=== PATIENT | male | born 1975 | race Caucasian/White ===

== ENCOUNTER 2019-12-25 12:43 | Outpatient (REF) | payer OTHER, SELFPAY ==
[2019-12-25 15:03] LABS: Hematocrit 40.9 % (42-52); Hemoglobin 13.6 g/dl (14.0-18.0); Mean Corpuscular HGB Conc 33.3 g/dl (31.0-36.0); Mean Corpuscular Hemoglobin 29.2 pg (27.0-33.0); Mean Platelet Volume 10.6 fL (9.4-12.4); Platelet Count 230 X10*3/uL (160-400); Red Blood Count 4.65 X10*6/uL (4.60-5.80); Red Cell Distribution Width 11.9 % (11.0-16.0); White Blood Count 6.6 X10*3/uL (4.8-10.8)
[2019-12-25 15:33] LABS: Alanine Aminotransferase 29 U/L (0-40); Alkaline Phosphatase 78 U/L (39-117); Anion Gap 10 (12-20); Aspartate Amino Transferase 22 U/L (5-37); Bilirubin Total 0.5 mg/dL (0.0-1.0); Blood Urea Nitrogen 9 mg/dL (9-16); Calcium 9.4 mg/dL (8.4-10.2); Carbon Dioxide 33 mmol/L (22-29); Chloride 102 mmol/L (96-108); Cholesterol 242 mg/dL; Estimated Glomerular Filt Rate > 60; Glucose Fasting 86 mg/dL (60-99); HDL Cholesterol 59 mg/dL; LDL Cholesterol Calculated 161 mg/dl; Potassium 3.9 mmol/l (3.3-5.1); Sodium 141 mmol/L (135-145); Total Protein 8.1 g/dL (6.5-8.0); Triglycerides 114 mg/dL
[2019-12-25 15:46] LABS: Creatinine Urine 79.72 mg/dL
[2019-12-25 15:55] LABS: Vitamin D 25-OH Total 19.4 ng/mL (>30)
[2019-12-25 17:08] LABS: Vitamin B12 171 pg/mL (200-900)
[2019-12-26 22:21] LABS: LDL Cholesterol Direct 163 mg/dL (<100)
== END 2019-12-25 12:44 | disposition home or self-care (01) ==
LOC: CF 12:43
PROVIDERS: PCP Internal Medicine; Referring Provider Internal Medicine; Visit Provider Internal Medicine Endocrinology, Diabetes & Metabolism
DX: E11.40 Type 2 diabetes mellitus with diabetic neuropathy, unspecified (principal); E66.3 Overweight; E55.9 Vitamin D deficiency, unspecified; I10 Essential (primary) hypertension; E78.5 Hyperlipidemia, unspecified; Z79.84 Long term (current) use of oral hypoglycemic drugs; Z79.899 Other long term (current) drug therapy
CPT/HCPCS: 36415; 80053; 80061; 82043; 82306; 82607; 83721; 85027; 99214

== ENCOUNTER → 2020-03-31 14:55 | Outpatient (BNVA) | payer OTHER, SELFPAY | PROVIDERS: Visit Provider Hospitalist | DX: Z76.89 Persons encountering health services in other specified circumstances (principal) ==

== ENCOUNTER → 2020-04-29 11:26 | Outpatient (BNVA) | payer OTHER, SELFPAY | PROVIDERS: Visit Provider Internal Medicine Endocrinology, Diabetes & Metabolism ==

== ENCOUNTER 2020-05-31 09:16 | Outpatient (REF) | payer OTHER, SELFPAY ==
[2020-05-31 10:24] LABS: Alanine Aminotransferase 37 U/L (0-40); Albumin Level 4.9 g/dL (3.5-5.0); Alkaline Phosphatase 68 U/L (39-117); Anion Gap 13 (12-20); Aspartate Amino Transferase 22 U/L (5-37); Bilirubin Total 0.5 mg/dL (0.0-1.0); Blood Urea Nitrogen 12 mg/dL (9-16); Calcium 9.7 mg/dL (8.4-10.2); Carbon Dioxide 31 mmol/L (22-29); Chloride 104 mmol/L (96-108); Cholesterol 205 mg/dL; Estimated Glomerular Filt Rate > 60; Glucose Fasting 75 mg/dL (60-99); HDL Cholesterol 50 mg/dL; LDL Cholesterol Calculated 117 mg/dl; Sodium 144 mmol/L (135-145); Triglycerides 194 mg/dL
[2020-05-31 10:28] LABS: Estimated Average Glucose 108 mg/dL; Hemoglobin A1c % 5.4 %
[2020-05-31 10:47] LABS: Free T4 (Free Thyroxine) 0.83 ng/dL (0.71-1.85); Vitamin D 25-OH Total 29.7 ng/mL (>30)
[2020-05-31 10:52] LABS: Vitamin B12 244 pg/mL (200-900)
[2020-06-01 12:56] LABS: LDL Cholesterol Direct 124 mg/dL (<100)
== END 2020-05-31 09:17 | disposition home or self-care (01) ==
LOC: HO.LAB 09:16
PROVIDERS: Visit Provider Internal Medicine Endocrinology, Diabetes & Metabolism
DX: E11.9 Type 2 diabetes mellitus without complications (principal); E78.5 Hyperlipidemia, unspecified
CPT/HCPCS: 36415; 80053; 80061; 82306; 82607; 83036; 83721; 84439; 84443

== ENCOUNTER → 2020-08-08 10:08 | Outpatient (BNVA) | payer OTHER, SELFPAY | PROVIDERS: PCP Internal Medicine; Visit Provider Hospitalist ==

== ENCOUNTER → 2020-08-29 12:53 | Outpatient (BNVA) | payer OTHER, SELFPAY | PROVIDERS: PCP Internal Medicine; Visit Provider Internal Medicine Endocrinology, Diabetes & Metabolism | DX: E11.40 Type 2 diabetes mellitus with diabetic neuropathy, unspecified (principal); E66.3 Overweight; E55.9 Vitamin D deficiency, unspecified; I10 Essential (primary) hypertension; E78.5 Hyperlipidemia, unspecified; E53.8 Deficiency of other specified B group vitamins | CPT/HCPCS: 82947; 99212 ==

== ENCOUNTER → 2021-02-09 12:50 | Outpatient (BNVA) | payer OTHER, SELFPAY | PROVIDERS: PCP Nurse Practitioner Family; Visit Provider Hospitalist | DX: J45.40 Moderate persistent asthma, uncomplicated (principal); J98.4 Other disorders of lung; J98.6 Disorders of diaphragm; R06.00 Dyspnea, unspecified; G47.33 Obstructive sleep apnea (adult) (pediatric); E11.42 Type 2 diabetes mellitus with diabetic polyneuropathy; I10 Essential (primary) hypertension; E78.5 Hyperlipidemia, unspecified; E53.8 Deficiency of other specified B group vitamins; E55.9 Vitamin D deficiency, unspecified; M54.9 Dorsalgia, unspecified; R29.898 Other symptoms and signs involving the musculoskeletal system; Z83.3 Family history of diabetes mellitus; Z82.49 Family history of ischemic heart disease and other diseases of the circulatory system; Z99.89 Dependence on other enabling machines and devices | CPT/HCPCS: 99212 ==

== ENCOUNTER 2021-05-25 13:25 | Outpatient (REF) | payer OTHER, SELFPAY ==
--- NOTE | ~2021-05-25 | XR_ITS ---
EXAMINATION: XR HIP, RIGHT CLINICAL INFORMATION: Right leg weakness COMPARISON: None TECHNIQUE: Two views of the right hip. FINDINGS: Bone alignment is normal. No fracture or dislocation is seen. There is mild arthritis at the right hip joint with joint space narrowing and osteophyte formation. Soft tissues are unremarkable. XR/XR hip RT min 2V IMPRESSION: Mild right hip arthritis.
[2021-05-25 14:56] LABS: Rheumatoid Factor < 15.0 IU/mL (<15.0)
[2021-05-25 15:16] LABS: Erythrocyte Sedimentation Rate 12 MM/HR (0-15)
[2021-05-26 08:36] LABS: Lyme Abs Screen <0.90 index
[2021-05-26 22:47] LABS: Anti Nuclear Antibody Screen POSITIVE (NEGATIVE)
== END 2021-05-25 13:26 | disposition home or self-care (01) ==
LOC: HO.XRAY 13:25
PROVIDERS: PCP Nurse Practitioner Family; Visit Provider Psychiatry & Neurology Neurology
DX: M62.81 Muscle weakness (generalized) (principal)
CPT/HCPCS: 36415; 73502; 82550; 85652; 86038; 86039; 86431; 86617; 86618

== ENCOUNTER 2021-05-26 09:41 | Outpatient (REF) | payer OTHER, SELFPAY ==
--- NOTE | ~2021-05-26 | XR_ITS ---
EXAMINATION: XR CHEST CLINICAL INFORMATION: Post Covid condition COMPARISON: None TECHNIQUE: 2 views of the chest were obtained. FINDINGS: The cardiac silhouette does not appear enlarged. Hilar and mediastinal contours are unremarkable. There is marked elevation of the left hemidiaphragm. The lungs are clear. There is no pleural effusion or pneumothorax. There is an old sternal fracture and postsurgical fixation with cerclage wires which appear broken. XR/XR chest 2V IMPRESSION: Significant elevation of the left hemidiaphragm. No evidence of pneumonia. Old sternal fracture.
[2021-05-26 11:02] LABS: MANUAL DIFF FLAG NO
[2021-05-26 11:09] LABS: Basophils Percent Auto 0.7 % (0-2); Eosinophils Absolute Auto 0.2 X10*3/uL (0.0-0.4); Eosinophils Percent Auto 3.8 % (0-4); Hematocrit 45.7 % (42.0-52.0); Hemoglobin 14.2 g/dl (14.0-18.0); Imm Gran Abs Auto 0.01 X10*3/uL (0.00-0.03); Imm Gran Pct Auto 0.2 % (0.0-0.4); Lymphocytes Percent Auto 35.2 % (20-40); Mean Corpuscular HGB Conc 31.1 g/dl (31.0-36.0); Mean Corpuscular Hemoglobin 28.2 pg (27.0-33.0); Mean Corpuscular Volume 90.7 fL (80.0-98.0); Mean Platelet Volume 10.7 fL (9.4-12.4); Monocytes Absolute Auto 0.4 X10*3/uL (0.1-1.2); Monocytes Percent Auto 6.3 % (2-11); Neutrophils Absolute Auto 3.1 x10*3/uL (2.0-8.3); Neutrophils Percent Auto 53.8 % (45-73); Platelet Count 175 X10*3/uL (160-400); Red Blood Count 5.04 X10*6/uL (4.60-5.80); White Blood Count 5.8 X10*3/uL (4.8-10.8)
[2021-05-26 11:43] LABS: Appearance Urine CLEAR; Color Urine YELLOW; Glucose Urine UA NEG (NEG); Leukocyte Esterase Urine NEG (NEG); Nitrite Urine NEG (NEG); Specific Gravity - Urine 1.025 (1.005-1.025); Urine Blood NEG (NEG); Urine Ketones NEG (NEG); Urine Protein NEG (NEG-TRACE)
[2021-05-26 11:45] LABS: Alanine Aminotransferase 39 U/L (0-40); Alkaline Phosphatase 72 U/L (39-117); Anion Gap 12 (12-20); Aspartate Amino Transferase 27 U/L (5-37); Bilirubin Direct 0.2 mg/dL (0.0-0.5); Bilirubin Total 0.8 mg/dL (0.0-1.0); Blood Urea Nitrogen 10 mg/dL (9-16); Carbon Dioxide 31 mmol/L (22-29); Chloride 102 mmol/L (96-108); Estimated Glomerular Filt Rate > 60; Glucose Random 95 mg/dL (60-115); Potassium 4.3 mmol/L (3.3-5.1); Sodium 141 mmol/L (135-145); Total Protein 8.2 g/dL (6.5-8.0)
[2021-05-26 11:57] LABS: Erythrocyte Sedimentation Rate 14 MM/HR (0-15)
[2021-05-27 05:21] LABS: SARS-COV-2 IgG Spike, Semi-Qnt >150.00 index (<1.00)
[2021-05-27 08:12] LABS: LDL Cholesterol Direct 152 mg/dL (<100)
== END 2021-05-26 09:42 | disposition home or self-care (01) ==
LOC: HO.XRAY 09:41
PROVIDERS: Internal Medicine Endocrinology, Diabetes & Metabolism; PCP Nurse Practitioner Family; Visit Provider Hospitalist
DX: J45.40 Moderate persistent asthma, uncomplicated (principal); Z20.822 Contact with and (suspected) exposure to COVID-19; G47.33 Obstructive sleep apnea (adult) (pediatric); R06.00 Dyspnea, unspecified; J98.4 Other disorders of lung; M54.9 Dorsalgia, unspecified; R59.1 Generalized enlarged lymph nodes; R29.898 Other symptoms and signs involving the musculoskeletal system; E78.5 Hyperlipidemia, unspecified; Z99.89 Dependence on other enabling machines and devices
CPT/HCPCS: 36415; 71046; 80048; 80076; 81003; 83721; 85025; 85652; 86769; 99212

== ENCOUNTER 2021-06-21 10:13 | Outpatient (REF) | payer OTHER, SELFPAY ==
[2021-06-22 14:26] LABS: Anti DNA DS Antibody 19 IU/mL
== END 2021-06-21 10:14 | disposition home or self-care (01) ==
LOC: HO.LAB 10:13
PROVIDERS: Visit Provider Psychiatry & Neurology Neurology
DX: R76.8 Other specified abnormal immunological findings in serum (principal)
CPT/HCPCS: 36415; 86225

== ENCOUNTER 2021-06-30 07:49 | Outpatient (REF) | payer OTHER, SELFPAY ==
[2021-06-30 10:23] LABS: Creatinine Urine 112.67 mg/dL; Microalbum/Creatinine Ratio Ur 7.1 ug/mg cr
[2021-06-30 10:25] LABS: Alanine Aminotransferase 46 U/L (0-40); Albumin Level 5.3 g/dL (3.5-5.0); Alkaline Phosphatase 81 U/L (39-117); Anion Gap 14 (12-20); Aspartate Amino Transferase 31 U/L (5-37); Bilirubin Total 0.6 mg/dL (0.0-1.0); Blood Urea Nitrogen 11 mg/dL (9-16); Carbon Dioxide 28 mmol/L (22-29); Chloride 104 mmol/L (96-108); Cholesterol 257 mg/dL; Estimated Glomerular Filt Rate > 60; Glucose Fasting 85 mg/dL (60-99); HDL Cholesterol 53 mg/dL; LDL Cholesterol Calculated 166 mg/dl; Sodium 142 mmol/L (135-145); Total Protein 8.9 g/dL (6.5-8.0); Triglycerides 192 mg/dL
[2021-06-30 10:50] LABS: Vitamin D 25-OH Total 11.4 ng/mL (>30)
[2021-06-30 11:09] LABS: Vitamin B12 214 pg/mL (200-900)
[2021-07-02 22:22] LABS: LDL Cholesterol Direct 155 mg/dL (<100)
== END 2021-06-30 07:50 | disposition home or self-care (01) ==
LOC: HO.LAB 07:49
PROVIDERS: PCP Nurse Practitioner Family; Visit Provider Nurse Practitioner Gerontology
DX: E11.40 Type 2 diabetes mellitus with diabetic neuropathy, unspecified (principal); E53.8 Deficiency of other specified B group vitamins; E78.5 Hyperlipidemia, unspecified; E55.9 Vitamin D deficiency, unspecified; E66.3 Overweight; I10 Essential (primary) hypertension
CPT/HCPCS: 36415; 80053; 80061; 82043; 82306; 82607; 82947; 83036; 83721; 99212

== ENCOUNTER → 2021-08-07 13:58 | Outpatient (BNVA) | payer OTHER, SELFPAY | PROVIDERS: PCP Nurse Practitioner Family; Visit Provider Internal Medicine | DX: M54.9 Dorsalgia, unspecified (principal) | CPT/HCPCS: 99202 ==

== ENCOUNTER 2021-09-28 11:13 | Outpatient (REF) | payer OTHER, SELFPAY ==
[2021-09-28 12:29] LABS: Cholesterol 203 mg/dL; HDL Cholesterol 45 mg/dL; LDL Cholesterol Calculated 116 mg/dl; Triglycerides 214 mg/dL
[2021-09-30 13:12] LABS: LDL Cholesterol Direct 118 mg/dL (<100)
== END 2021-09-28 11:14 | disposition home or self-care (01) ==
LOC: HO.LAB 11:13
PROVIDERS: Visit Provider Nurse Practitioner Gerontology
DX: J45.40 Moderate persistent asthma, uncomplicated (principal); G47.33 Obstructive sleep apnea (adult) (pediatric); Z99.89 Dependence on other enabling machines and devices; J98.4 Other disorders of lung; R06.00 Dyspnea, unspecified; J98.6 Disorders of diaphragm; M54.9 Dorsalgia, unspecified; R59.1 Generalized enlarged lymph nodes; E11.41 Type 2 diabetes mellitus with diabetic mononeuropathy
CPT/HCPCS: 36415; 80061; 83721; 99212

== ENCOUNTER 2021-12-29 10:18 | Outpatient (REF) | payer OTHER, SELFPAY ==
[2021-12-29 10:34] LABS: MANUAL DIFF FLAG NO
[2021-12-29 11:40] LABS: Basophils Absolute Auto 0.1 X10*3/uL (0.0-0.2); Eosinophils Absolute Auto 0.4 X10*3/uL (0.0-0.4); Eosinophils Percent Auto 7.5 % (0-4); Hematocrit 41.3 % (42.0-52.0); Hemoglobin 13.5 g/dl (14.0-18.0); Imm Gran Abs Auto 0.01 X10*3/uL (0.00-0.03); Imm Gran Pct Auto 0.2 % (0.0-0.4); Lymphocytes Absolute Auto 1.7 X10*3/uL (1.2-4.9); Mean Corpuscular HGB Conc 32.7 g/dl (31.0-36.0); Mean Corpuscular Hemoglobin 27.8 pg (27.0-33.0); Mean Corpuscular Volume 85.2 fL (80.0-98.0); Monocytes Absolute Auto 0.4 X10*3/uL (0.1-1.2); Monocytes Percent Auto 7.9 % (2-11); Neutrophils Absolute Auto 2.7 x10*3/uL (2.0-8.3); Neutrophils Percent Auto 51.4 % (45-73); Platelet Count 256 X10*3/uL (160-400); Red Blood Count 4.85 X10*6/uL (4.60-5.80); Red Cell Distribution Width 12.2 % (11.0-16.0); White Blood Count 5.2 X10*3/uL (4.8-10.8)
[2021-12-29 12:16] LABS: Erythrocyte Sedimentation Rate 13 MM/HR (0-15)
[2021-12-29 12:17] LABS: Anion Gap 16 (12-20); Blood Urea Nitrogen 9 mg/dL (9-16); Carbon Dioxide 28 mmol/L (22-29); Chloride 103 mmol/L (96-108); Estimated Glomerular Filt Rate > 60; Glucose Random 92 mg/dL (60-115); Potassium 3.9 mmol/L (3.3-5.1); Sodium 143 mmol/L (135-145)
== END 2021-12-29 10:19 | disposition home or self-care (01) ==
LOC: HO.LAB 10:18
PROVIDERS: Visit Provider Hospitalist
DX: J45.40 Moderate persistent asthma, uncomplicated (principal); J98.4 Other disorders of lung; R06.00 Dyspnea, unspecified; J98.6 Disorders of diaphragm; G47.33 Obstructive sleep apnea (adult) (pediatric); R59.1 Generalized enlarged lymph nodes; R93.89 Abnormal findings on diagnostic imaging of other specified body structures
CPT/HCPCS: 36415; 80048; 85025; 85652; 99212

== ENCOUNTER → 2022-01-19 10:58 | Outpatient (BNVA) | payer OTHER, SELFPAY | PROVIDERS: PCP Nurse Practitioner Family; Visit Provider Psychiatry & Neurology Neurology | DX: R20.2 Paresthesia of skin (principal); M79.602 Pain in left arm; M79.601 Pain in right arm; M54.2 Cervicalgia; R53.1 Weakness | CPT/HCPCS: 99202 ==

== ENCOUNTER 2022-03-07 13:40 | Outpatient (REF) | payer OTHER, SELFPAY ==
--- NOTE | 2022-03-07 09:45 | EMG_ITS ---
Please see scanned EMG / Nerve Conduction Report. MTDD
== END 2022-03-07 13:41 | disposition home or self-care (01) ==
LOC: HO.NEURO 13:40
PROVIDERS: Visit Provider Psychiatry & Neurology Neurology
DX: M54.2 Cervicalgia (principal); M79.601 Pain in right arm; M79.602 Pain in left arm; R20.2 Paresthesia of skin; R53.1 Weakness
CPT/HCPCS: 95885; 95913

== ENCOUNTER → 2022-04-03 08:40 | Outpatient (BNVA) | payer OTHER, SELFPAY | PROVIDERS: PCP Nurse Practitioner Family; Visit Provider Hospitalist | DX: J45.40 Moderate persistent asthma, uncomplicated (principal); J98.4 Other disorders of lung; J98.6 Disorders of diaphragm; R06.00 Dyspnea, unspecified; G47.33 Obstructive sleep apnea (adult) (pediatric); R59.1 Generalized enlarged lymph nodes; R76.8 Other specified abnormal immunological findings in serum; Z79.899 Other long term (current) drug therapy; Z99.89 Dependence on other enabling machines and devices | CPT/HCPCS: 99212 ==

== ENCOUNTER → 2022-06-28 07:56 | Outpatient (BNVA) | payer OTHER, SELFPAY | PROVIDERS: PCP Nurse Practitioner Family; Visit Provider Psychiatry & Neurology Neurology | DX: G47.33 Obstructive sleep apnea (adult) (pediatric) (principal); G56.03 Carpal tunnel syndrome, bilateral upper limbs | CPT/HCPCS: 99212 ==

== ENCOUNTER 2022-06-29 09:03 | Outpatient (REF) | payer OTHER, SELFPAY ==
[2022-06-29 15:43] LABS: MANUAL DIFF FLAG NO
[2022-06-29 17:28] LABS: Basophils Absolute Auto 0.1 X10*3/uL (0.0-0.2); Basophils Percent Auto 0.7 % (0-2); Eosinophils Absolute Auto 0.1 X10*3/uL (0.0-0.4); Eosinophils Percent Auto 1.7 % (0-4); Hematocrit 40.4 % (42.0-52.0); Hemoglobin 13.2 g/dl (14.0-18.0); Imm Gran Abs Auto 0.02 X10*3/uL (0.00-0.03); Imm Gran Pct Auto 0.3 % (0.0-0.4); Lymphocytes Absolute Auto 2.3 X10*3/uL (1.2-4.9); Lymphocytes Percent Auto 30.5 % (20-40); Mean Corpuscular HGB Conc 32.7 g/dl (31.0-36.0); Mean Corpuscular Hemoglobin 27.8 pg (27.0-33.0); Mean Corpuscular Volume 85.2 fL (80.0-98.0); Mean Platelet Volume 11.3 fL (9.4-12.4); Monocytes Absolute Auto 0.4 X10*3/uL (0.1-1.2); Monocytes Percent Auto 5.3 % (2-11); Neutrophils Absolute Auto 4.6 x10*3/uL (2.0-8.3); Neutrophils Percent Auto 61.5 % (45-73); Platelet Count 233 X10*3/uL (160-400); Red Blood Count 4.74 X10*6/uL (4.60-5.80); White Blood Count 7.5 X10*3/uL (4.8-10.8)
[2022-06-29 17:42] LABS: Appearance Urine Clear; Color Urine Yellow; Glucose Urine UA Negative (Negative); Leukocyte Esterase Urine Negative (Negative); Nitrite Urine Negative (Negative); PH 8.5 (5.0-9.0); Specific Gravity - Urine 1.015 (1.005-1.025); Urine Blood Negative (Negative); Urine Ketones Negative (Negative); Urine Protein Negative (Neg-Trace)
[2022-06-29 17:45] LABS: Bacteria Urine None Seen (None Seen); Hyaline Casts Urine 0-2 /LPF (0-2); RBC Urine 0-2 /HPF (0-2); Squamous Epithelial Cell Urine 0-2 /HPF (0-2); WBC Urine 0-5 /HPF (0-5)
[2022-06-29 18:04] LABS: Alanine Aminotransferase 23 U/L (0-40); Albumin Level 4.9 g/dL (3.5-5.0); Alkaline Phosphatase 82 U/L (39-117); Anion Gap 15 (12-20); Aspartate Amino Transferase 21 U/L (5-37); Bilirubin Total 0.5 mg/dL (0.0-1.0); Blood Urea Nitrogen 8 mg/dL (9-16); C Reactive Protein < 0.10 mg/dL (< or = 0.50); Calcium 9.3 mg/dL (8.4-10.2); Carbon Dioxide 27 mmol/L (22-29); Chloride 104 mmol/L (96-108); Estimated Glomerular Filt Rate > 60; Glucose Random 84 mg/dL (60-115); Sodium 142 mmol/L (135-145); Total Protein 7.7 g/dL (6.5-8.0)
[2022-06-29 18:06] LABS: Creatinine Urine 98.43 mg/dL; Total Protein Urine Random < 7 mg/dL (<12)
[2022-06-29 18:29] LABS: Erythrocyte Sedimentation Rate 16 MM/HR (0-15)
[2022-07-02 14:59] LABS: IgA 405 mg/dL (47-310); IgG 1247 mg/dL (600-1640); IgM 73 mg/dL (50-300)
[2022-07-02 19:43] LABS: Complement C3 143 mg/dL (82-185)
[2022-07-03 13:43] LABS: Anti DNA DS Antibody 21 IU/mL; Antibody to SS-A Antigen <1.0 NEG AI (<1.0 NEG); Antibody to SS-B Antigen <1.0 NEG AI (<1.0 NEG); SM/Ribonucleoprotein Ab <1.0 NEG AI (<1.0 NEG); Smith Protein <1.0 NEG AI (<1.0 NEG)
[2022-07-04 03:54] LABS: Angiotensin Converting Enzyme 30 U/L (9-67)
[2022-07-05 08:59] LABS: Prot Elec - Albumin 5.4 g/dL (3.8-4.8); Prot Elec - Alpha1 0.3 g/dL (0.2-0.3); Prot Elec - Alpha2 0.9 g/dL (0.5-0.9); Prot Elec - Beta 1 0.5 g/dL (0.4-0.6); Prot Elec - Beta 2 0.6 g/dL (0.2-0.5); Prot Elec - Gamma 1.3 g/dL (0.8-1.7); Prot Elec - Total Protein 8.9 g/dL (6.1-8.1)
[2022-07-10 12:48] LABS: DNAds, Crithidia Antibody Negative (Negative)
== END 2022-06-29 09:04 | disposition home or self-care (01) ==
LOC: HO.LAB 09:03
PROVIDERS: Absent Provider Student in an Organized Health Care Education/Training Program; Visit Provider Hospitalist
DX: M32.9 Systemic lupus erythematosus, unspecified (principal); D86.9 Sarcoidosis, unspecified; R76.8 Other specified abnormal immunological findings in serum; J45.40 Moderate persistent asthma, uncomplicated; J98.6 Disorders of diaphragm; R59.1 Generalized enlarged lymph nodes; R06.00 Dyspnea, unspecified; J98.4 Other disorders of lung; G47.33 Obstructive sleep apnea (adult) (pediatric); Z99.89 Dependence on other enabling machines and devices; Z79.899 Other long term (current) drug therapy
CPT/HCPCS: 36415; 80053; 81001; 82164; 82784; 84156; 84165; 85025; 85549; 85652; 86140; 86160; 86225; 86235; 86255; 86334; 99202

== ENCOUNTER → 2022-07-24 09:45 | Outpatient (BNV) | payer OTHER, SELFPAY | PROVIDERS: Visit Provider Internal Medicine Medical Oncology | DX: R59.0 Localized enlarged lymph nodes (principal); Z85.49 Personal history of malignant neoplasm of other male genital organs | CPT/HCPCS: 99204; 99213 ==

== ENCOUNTER → 2022-07-25 08:33 | Outpatient (BNVA) | payer OTHER, SELFPAY | PROVIDERS: Visit Provider Orthopaedic Surgery | DX: G56.03 Carpal tunnel syndrome, bilateral upper limbs (principal) | CPT/HCPCS: 99202 ==

== ENCOUNTER 2022-08-16 09:27 | Day surgery (SDC) | payer OTHER, SELFPAY ==
[2022-08-16 10:01] VITALS: BMI 28.3
--- NOTE | 2022-08-16 12:08 | MHC.SHP ---
Pre-Procedural Eval Section A Date of Service: 08/16/22 The patient is an INPATIENT: No Changes since office visit: No Cold of Flu in the past 2 weeks, No New Medical Problems, No Changes in Medication and No Patient answered all questions The History & Physical has been completed within 30 days and I have reviewed it.: Yes Section B Chief Complaint: Carpal tunnel syndrome, right upper limb Allergies: Allergies Allergy/AdvReac Type Severity Reaction Status Date / Time No Known Allergies Allergy Verified 07/25/22 09:21 Plan I have reviewed the history and physical and performed a pertinent physical examination on my patient. No changes have occurred unless specified. Time Spent With Patient Time: Total time managing care of this patient today ____ minutes.
--- NOTE | 2022-08-16 12:08 | W.PM.OPN ---
Operative Note Operative Note Date of Service: 08/16/22 Narrative: Preop diagnosis: 1. Right Carpal tunnel syndrome Postop diagnosis: same Procedure: 1. Right Carpal tunnel release Surgeon: Marie Moore MD Anesthesia: local block using 1% lidocaine with epinephrine Findings: Thickened transverse carpal ligament. EBL: Less than 5 mL Specimens: None Complications: None Disposition: Brought to recovery room in stable condition Plan: Follow-up for 10-14 days for wound check and suture removal Indications: The patient is 47 years old, with right carpal tunnel syndrome that has been unresponsive to nonoperative management. The risks and benefits of operative treatment including but not limited to risk of damage to blood vessels, nerves, tendons, infection, persistent pain, persistent symptoms, or possible need for additional surgery were discussed with the patient and the patient wishes to proceed with surgery. Procedure: Once consent was obtained a local block was performed using a combination of 1% lidocaine with epinephrine. The patient was then brought back to the operating suite and placed on the operative table in supine position. The right upper extremity was prepped and draped in a standard surgical fashion. Once assured that we had a good block, a 2.0 cm longitudinal incision was made centered over the carpal tunnel. The incision was made through the skin to the subcutaneous tissues using a #15 blade. Dissection was made down to the level of the transverse carpal ligament with care being taken to protect the palmar cutaneous nerve. Once the transverse carpal ligament was clearly visualized, a longitudinal incision was made in the transverse carpal ligament 1st using a #15 blade, then using tenotomy scissors under direct visualization. Care was taken to look for and protect the motor branch of the median nerve when seen in this area. Once satisfied with our carpal tunnel release the wound was copiously irrigated with normal saline and hemostasis was obtained with a brief period of local pressure. The skin edges were reapproximated with some 5.0 nylon suture material and a sterile dressing was applied. The patient appears to have tolerated the procedure well and with no complications. All digits were well vascularized at the conclusion of the case.
[2022-08-16 12:42] VITALS: BP 114/70; PULSE 77; RESP 18; O2SAT 98
== END 2022-08-16 12:43 | disposition home or self-care (01) ==
PROVIDERS: Visit Provider Orthopaedic Surgery
PROC: (CPT 64721; principal; 2022-08-16 11:30)
DX: G56.01 Carpal tunnel syndrome, right upper limb (principal); R20.0 Anesthesia of skin; R20.2 Paresthesia of skin; I10 Essential (primary) hypertension; E78.5 Hyperlipidemia, unspecified; E11.21 Type 2 diabetes mellitus with diabetic nephropathy; M32.9 Systemic lupus erythematosus, unspecified; U09.9 Post COVID-19 condition, unspecified; J84.9 Interstitial pulmonary disease, unspecified; J45.909 Unspecified asthma, uncomplicated; G47.33 Obstructive sleep apnea (adult) (pediatric); Z99.89 Dependence on other enabling machines and devices; Z98.890 Other specified postprocedural states; F12.90 Cannabis use, unspecified, uncomplicated
CPT/HCPCS: 64721; J0171

== ENCOUNTER → 2022-08-29 11:33 | Outpatient (BNVA) | payer OTHER, SELFPAY | PROVIDERS: Visit Provider Orthopaedic Surgery | DX: G56.01 Carpal tunnel syndrome, right upper limb (principal); M79.631 Pain in right forearm | CPT/HCPCS: 99212 ==

== ENCOUNTER 2022-10-10 11:59 | Outpatient (AMB) | payer OTHER, SELFPAY ==
--- NOTE | 2022-10-10 12:09 | MHC.OFFVIS ---
Intake Vital Signs 10/10/22 12:11 Height 5 ft 3 in Weight 160 lb BMI 28.3 Intake Visit Reasons: Postop-R CTR 08/16/22 AR-ROM check Intake Note: Steve 47 yr old man presents today for his P/O Right CTR 08/16/22 for his ROM check. States he has improved in making a fist. States he has pain radiating to his elbow. Allergies No Known Allergies Allergy (Verified 10/10/22 12:14) HPI Postop-R CTR 08/16/22 AR-ROM check HPI Details Steve is a 47 year old right hand dominant Lebanese speaking man who presents S/P right carpal tunnel release, DOS: 08/16/22. He says his sensation in his right hand has completely improved and he has good resolution of his nighttime symptoms. he has been working on ROM exercises at home and with OT, and he can now make a fist more easily. He continues to have difficulty using his hand for daily activities and complains that he still has pain in the base of his palm, particularly if he tries to push up from a chair.. He also continues to complain of pain in his right forearm, elbow, and shoulder, which we discussed at his last appointment. He has a family history of RA. ? 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 Sister Fibromyalgia, primary Maternal Aunt Lung cancer Social History Household Members: Family and Other Household Members Other:: Patient does not have a stable place to live Alcohol intake: current Alcohol intake frequency: holidays/special occasions only Patient Tobacco Use Status: Never used Tobacco Substance Use Type: Marijuana service: No Current occupational status: unemployed and disabled Current occupation: left hand Gender identity: Male Review of Systems Const All systems reviewed & are unremarkable except as noted in HPI and below Physical Exam Vital Signs: BMI result Body Mass Index 28.3 Const General: no acute distress and alert Orientation/consciousness: patient oriented x3 Neuro General: patient oriented x3 Extrem Other: The patient was alert oriented and in no acute distress The incision is well-healed With encouragement he could make a fist and bring his fingers back into extension He has pain in his dorsal and volar forearm, and elbow that extends up into his shoulder and neck Sensation is intact to the tips of all digits Cap refill is brisk Nerve Conduction study: Mild bilateral carpal tunnel syndrome, slightly worse on the left Dr. Hull 03/07/22 Psych Appearance: grossly normal Affect: normal affect Attitude: cooperative Assessment & Plan Assessment & Plan (1) Carpal tunnel syndrome of right wrist: Code(s): G56.01 - Carpal tunnel syndrome, right upper limb (2) Carpal tunnel syndrome of left wrist: Code(s): G56.02 - Carpal tunnel syndrome, left upper limb Plan Assessment & Plan: 1. Right Carpal tunnel syndrome, S/P release DOS: 08/15/22 Pre-operative symptoms intermittent, but daily, worse at night Now with normal sensation The patient appears to be doing well post-operatively I educated him about the post-operative course He continues to have apprehension about using his hand for daily activities I encouraged him to normalize his activity with his right hand, and to begin using his hand for daily medium-heavy weight activities He will continue to perform his ROM exercises at home and with OT 2. Left Carpal tunnel syndrome, mild Symptoms intermittent, but daily, worse at night We can discuss treatment for his left side when he has recovered from surgery and he can use his right hand for normal activities 3. Right forearm pain Just distal to the lateral epicondyle at last visit. Today he complains about pain in the volar forearm, dorsal forearm, his elbow and radiating up to his neck I told him we would address this at a later date, following surgery Scribed for Marie Moore MD by Boyd Dickey, medical technologist microbiology, on 10/10/22 at 12:35 PM, EST. Coding Level of Care Code Global (88580) Diagnoses Carpal tunnel syndrome of right wrist G56.01 Carpal tunnel syndrome of left wrist G56.02
[2022-10-10 12:11] VITALS: BMI 28.3
== END 2022-10-10 13:56 | disposition home or self-care (01) ==
PROVIDERS: Visit Provider Orthopaedic Surgery
DX: G56.01 Carpal tunnel syndrome, right upper limb (principal); G56.02 Carpal tunnel syndrome, left upper limb
CPT/HCPCS: 99024

== ENCOUNTER → 2022-10-10 11:59 | Outpatient (BNVA) | payer OTHER, SELFPAY | PROVIDERS: Visit Provider Orthopaedic Surgery ==

== ENCOUNTER 2022-11-01 08:48 | Outpatient (AMB) | payer OTHER, SELFPAY ==
[2022-11-01 08:57] VITALS: BP 112/68; PULSE 71; TEMP 36.2; O2SAT 97; BMI 28.3
--- NOTE | 2022-11-01 08:57 | A.OFFVIS_ITS ---
Intake Vital Signs 11/01/22 08:57 Height 5 ft 3 in Weight 159 lb 9.835 oz BMI 28.3 BP 112/68 Blood Pressure Location Rt brachial Position Sitting Pulse 71 Pulse Source Pulse Oximeter Temp 97.2 F Temp Source Skin Pulse Oximetry (%) 97 Intake Visit Reasons: BRIAN+/LN Intake Note: * Pt seen today for follow up. S/p carpal tunnel release right wrist * C/o pain in multiple areas; low back, hips, hands, elbows, knees, ankles * States he can not take the pain. Pain is sharp * Reports mood changes with plaquenil started by pulm Synthetic Filament Spinner Required: No Synthetic Filament Spinner Name: Neli [id number] Accompanied by: Self / Same As Patient Allergies No Known Allergies Allergy (Verified 11/01/22 09:01) Medication List - Last Reconciled 11/01/22 by Sulma Latham MD blood sugar diagnostic (FreeStyle Lite Strips) 2 times a day clonazepam 1 mg PO QAM cyanocobalamin (vitamin B-12) 500 mcg sublingual DAILY 30 days dulaglutide (Trulicity) 1.5 mg (0.5 mL) subcut QWEEK ezetimibe 10 mg PO DAILY 30 days ferrous sulfate 325 mg PO DAILY fluticasone furoate-vilanterol 100-25 mcg/dose (Breo Ellipta) 1 ea PO DAILY gabapentin Take 1 capsule in AM, 1 capsule at noon, 2 capsules at bedtime; 30 d ays gemfibrozil 600 mg PO BID hydroxychloroquine 200 mg PO DAILY lancets (FreeStyle Lancets) Twice a day lisinopril 5 mg PO DAILY 30 days loratadine 10 mg PO DAILY metformin 500 mg PO DAILY montelukast 10 mg PO BEDTIME omega-3 fatty acids 1,000 mg PO BID 30 days paroxetine HCl 30 mg PO DAILY rosuvastatin 20 mg PO DAILY 90 days trazodone 50 mg PO BEDTIME PRN HPI HPI Comments History of Present Illness Details Patient returns for follow-up. States that he takes the Plaquenil inconsistently as he believes it causes mood changes. It was prescribed by pulmonology. He was also evaluated by heme Onc for his history of testicular cancer. Patient continues to have intermittent pain and swelling of lymph nodes in his axillary regions, sometimes uncomfortable. He also gets sharp electric shock like sensation in his back, thighs. He had surgery for his right hand carpal tunnel recently and has some discomfort in his right hand. Initial history: This is a 47-year-old male with complex past medical history including testicular cancer s/p surgery and chemotherapy. He also has history of BETHEL and asthma. He is referred for diffuse joint pain as well as a positive BRIAN. Patient stated that he was diagnosed with testicular cancer many years ago s/p surgical treatment and chemotherapy. He stated that chemotherapy had to be stopped due to significant anemia and he had to get blood transfusions. He stated that after he got his treatment he was told that his cancer can come back. He has not been evaluated by an oncologist in over 5 years. Patient has diffuse pain everywhere. He was prescribed hydroxychloroquine 200 mg daily as a therapeutic trial by Dr. Win. He was also started on prednisone by Dr. Win. Patient cannot tell whether there is an improveme nt with prednisone or hydroxychloroquine. He is unaware of any family history of autoimmune rheumatic disease. Over the last 2-3 years he has developed progressively spreading lymphadenopathy of his neck, axilla and groin. 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 Sister Fibromyalgia, primary Maternal Aunt Lung cancer Social History Household Members: Family and Other Household Members Other:: Patient does not have a stable place to live Alcohol intake: current Alcohol intake frequency: holidays/special occasions only Patient Tobacco Use Status: Never used Tobacco Substance Use Type: Marijuana service: No Current occupational status: disabled Current occupation: left hand Gender identity: Male Review of Systems Const Reports fatigue and Reports weakness Musc Reports arthralgias Neuro Reports weakness Psych Reports anxiety and Reports depression Endo Reports fatigue Physical Exam Vital Signs: Last Vital Signs Temp 97.2 F 11/01/22 08:57 Pulse 71 11/01/22 08:57 BP 112/68 11/01/22 08:57 Pulse Ox 97 11/01/22 08:57 BMI result Body Mass Index 28.3 Const General: cooperative, healthy appearing and comfortable Nutritional Appearance: overweight Orientation/consciousness: patient oriented x3 Limitations: no limitations HEENT Head: Yes normocephalic and Yes atraumatic Mouth: moist mucous membranes Resp Effort & Inspection: normal respiratory effort and able to speak in complete sentences Auscultation: clear to auscultation bilaterally Cardio Rate: regular rate Rhythm: regular rhythm Heart sounds: S1 normal heart sound present and S2 normal heart sound present Neuro General: patient oriented x3 Extrem Other: Diffuse fibromyalgia tender points Multiple Heberden's nodes Assessment & Plan Assessment & Plan (1) BRIAN positive: Code(s): R76.8 - Other specified abnormal immunological findings in serum Plan: This is a 47-year-old male with past medical history of testicular cancer s/p surgery and chemotherapy presents for evaluation of diffuse pain, positive BRIAN, positive dsDNA. Continues to feel about the same. With widespread pains and random tingling and numbness of his skin. Per patient he continues to get intermittent lymphadenopathy. He was recently evaluated by heme Onc for his history of testicular cancer. States that he is not compliant with hydroxychloroquine as he feels that it changes his mood. I do not see any signs of active SLE that require treatment at this point. Patient has no cytopenias, no nephritis or proteinuria, there is no inflammatory arthritis or mucocutaneous lesions. Symptoms are consistent with fibromyalgia. I discussed nature of fibromyalgia with patient. Advised patient to try to incorporate light activity. Try to work on his sleep. He already has a psychiatrist and a psychologist. He is on gabapentin, Klonopin, trazodone, paroxetine. He was started on hydroxychloroquine by pulmonology. Patient does not take it regularly. I informed patient that if he takes hydroxychloroquine regularly you should get regular eye exam. Labs before next visit in 6 months Plan I spent 28 minutes reviewing patient's chart, evaluating patient counseling patient and documenting in the chart Orders: Orders Comprehensive Met. Panel 6 Months M32.9 - Systemic lupus erythematosus, unspecified C Reactive Protein 6 Months M32.9 - Systemic lupus erythematosus, unspecified Protein Creatinine Ratio, Ur 6 Months M32.9 - Systemic lupus erythematosus, unspecified Complete Blood Count Auto Diff 6 Months M32.9 - Systemic lupus erythematosus, un specified Erythrocyte Sedimentation Rate 6 Months M32.9 - Systemic lupus erythematosus, unspecified Complement C3 6 Months M32.9 - Systemic lupus erythematosus, unspecified Complement C4 6 Months M32.9 - Systemic lupus erythematosus, unspecified Anti DNA DS Antibody 6 Months M32.9 - Systemic lupus erythematosus, unspecified UA w Microscopic 6 Months M32.9 - Systemic lupus erythematosus, unspecified Coding Level of Care Code Est Pt Level 4 (06932) Diagnoses BRIAN positive R76.8
== END 2022-11-01 09:34 | disposition home or self-care (01) ==
PROVIDERS: Visit Provider Student in an Organized Health Care Education/Training Program
DX: R76.8 Other specified abnormal immunological findings in serum (principal)
CPT/HCPCS: 99214

== ENCOUNTER → 2022-11-01 08:48 | Outpatient (BNVA) | payer OTHER, SELFPAY | PROVIDERS: Visit Provider Student in an Organized Health Care Education/Training Program | DX: R76.8 Other specified abnormal immunological findings in serum (principal) | CPT/HCPCS: 99212 ==

== ENCOUNTER 2022-11-09 10:47 | Outpatient (REF) | payer OTHER, SELFPAY ==
[2022-11-09 11:06] LABS: MANUAL DIFF FLAG NO
[2022-11-09 11:44] LABS: Basophils Percent Auto 0.7 % (0-2); Eosinophils Absolute Auto 0.2 X10*3/uL (0.0-0.4); Eosinophils Percent Auto 3.1 % (0-4); Hematocrit 41.5 % (42.0-52.0); Hemoglobin 13.7 g/dl (14.0-18.0); Imm Gran Abs Auto 0.02 X10*3/uL (0.00-0.03); Imm Gran Pct Auto 0.3 % (0.0-0.4); Lymphocytes Absolute Auto 2.1 X10*3/uL (1.2-4.9); Lymphocytes Percent Auto 35.8 % (20-40); Mean Corpuscular Hemoglobin 28.4 pg (27.0-33.0); Mean Corpuscular Volume 85.9 fL (80.0-98.0); Mean Platelet Volume 10.9 fL (9.4-12.4); Monocytes Absolute Auto 0.3 X10*3/uL (0.1-1.2); Monocytes Percent Auto 5.7 % (2-11); Neutrophils Absolute Auto 3.2 x10*3/uL (2.0-8.3); Neutrophils Percent Auto 54.4 % (45-73); Platelet Count 201 X10*3/uL (160-400); Red Blood Count 4.83 X10*6/uL (4.60-5.80); Red Cell Distribution Width 12.2 % (11.0-16.0); White Blood Count 5.8 X10*3/uL (4.8-10.8)
[2022-11-09 12:35] LABS: Alanine Aminotransferase 22 U/L (0-40); Albumin Level 4.7 g/dL (3.5-5.0); Alkaline Phosphatase 63 U/L (39-117); Anion Gap 14 (12-20); Aspartate Amino Transferase 18 U/L (5-37); Bilirubin Total 0.5 mg/dL (0.0-1.0); Blood Urea Nitrogen 6 mg/dL (9-16); Calcium 9.6 mg/dL (8.4-10.2); Carbon Dioxide 25 mmol/L (22-29); Chloride 108 mmol/L (96-108); Estimated Glomerular Filt Rate > 60; Glucose Random 87 mg/dL (60-115); Lactate Dehydrogenase 217 U/L (118-273); Potassium 3.7 mmol/L (3.3-5.1); Sodium 143 mmol/L (135-145)
== END 2022-11-09 10:48 | disposition home or self-care (01) ==
LOC: HO.LAB 10:47
PROVIDERS: Internal Medicine Medical Oncology; Visit Provider Student in an Organized Health Care Education/Training Program
DX: C62.90 Malignant neoplasm of unspecified testis, unspecified whether descended or undescended (principal)
CPT/HCPCS: 36415; 80053; 83615; 85025

== ENCOUNTER 2022-11-21 10:30 | Outpatient (RCR) | payer OTHER, SELFPAY ==
--- NOTE | 2022-09-24 16:19 | MHC.OT.EP ---
[address] [phone] Occupational Therapy Plan of Care Patient Name: Steve Dent Date of Evaluation: 09/24/22 Diagnosis: S/p right CTR Pain Location: Right carpal wrist 2-8 Right lateral elbow 2-8 Pain Score: 8 Pain Scale Used: Numeric (0 - 10) Aggravating Factors: Light touch to carpal wrist and to lateral elbow Right hand and arm use Alleviating Factors: Nothing Assessment: Pt is a 47 yo male with a complicated medical history presents with complaint of right hand pain 5 weeks s/p right CTR. Hand paresthesias improved. 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 Military Education Coordinator > 25 lb Quick DASH to less than 30 pts Treatment Plan: Therapeutic Exercise Therapeutic Activity Home Exercise Program Patient Education Desensitization/Sensory Re-ed ADL Training Ultrasound Iontophoresis Fluidotherapy MHP Cold Packs Soft Tissue Mobilization Kinesiotaping Electronically Signed By: Sammie Eubanks OT CHT CLT Please Sign and return to therapist. Thank you once again for your referral.
--- NOTE | 2022-11-21 11:20 | MHC.OT.DC ---
[address] [phone] F: [phone] Occupational Therapy Discharge Note Patient Name: Steve Ramirez Quirino Jailene Provider: Marie Moore Diagnosis: S/p right CTR Date of Surgery: 08/16/22 Date of Evaluation: 09/24/22 Date of Discharge: 11/21/22 Treatments to Date: 9 Cancellations to Date: 4 No Shows to Date: 1 Discharge Status: Independent with HEP Recommend MD Follow-up Discharge Summary: 1 wk lapse in treatment due to therapist absence Pt demonstrates poor carry over with his HEP. He has not been able to progress 1 lb bicep curls over the past few weeks. An increase in pain behaviors with ther ex noted today and his Quick DASH score is increased from 47 pts to 61 pts Layout Technician strength is unchanged with standard testing at 22 lb and increased to 50 lb with rapid exchange test. Pt is also with of symptoms of lateral epicondylitis and has been instructed on use of a counter force brace as needed , elbow protection techniques and forearm stretches for lateral epicondylitis. Continued skilled OT is not needed at this time Electronically Signed By: Sammie Eubanks OT CHT CLT Reviewed/agree with student documentation: Therapist: Please Sign and return to therapist, thank you for your referral.
== END 2023-08-20 14:52 | disposition home or self-care (01) ==
LOC: HO.OT 10:30
PROVIDERS: PCP Clinical Nurse Specialist Psychiatric/Mental Health; Visit Provider Orthopaedic Surgery
DX: G56.01 Carpal tunnel syndrome, right upper limb (principal)
CPT/HCPCS: 97033; 97035; 97110; 97140; 97166; 97530

== ENCOUNTER 2023-01-02 09:19 | Outpatient (AMB) | payer OTHER, SELFPAY ==
[2023-01-02 09:58] VITALS: PULSE 82; O2SAT 99; BMI 27.1
--- NOTE | 2023-01-02 09:58 | A.OFFVIS_ITS ---
Intake Vital Signs 01/02/23 09:58 Height 5 ft 3 in Weight 153 lb BMI 27.1 Pulse 82 Pulse Source Pulse Oximeter Pulse Oximetry (%) 99 Oxygen Delivery Method Room Air Intake Visit Reasons: Asthma Knife Setter Required: No Allergies No Known Allergies Allergy (Verified 01/02/23 09:59) HPI HPI Comments History of Present Illness Details The patient is 47 y/o man with a history of asthma in addition to obstructive sleep apnea. We did switch his mask the last visit and is tolerating it much better. He is also getting supplies regularly now. The CPAP therapy continues to be affecting beneficial. He is using more than 4 hours a night. His asthma appears to be in better control. He continues to use his respiratory regimen including his allergy medicine. He is not using the short-acting beta agonist more than twice a week. He has been complaining of other issues including arthralgias and what appears to be neuropathic pain. He is having hard time sleeping with it. Therefore affecting his daytime drowsiness. He does have a prescription of gabapentin but he is not using it at this time as prescribed. I requested that I can at least use it at nighttime to can help him sleep in also helping with the pain. 12/29/2021 the patient is here for a pulm onary follow-up visit. Breathing has been stable with his current respiratory therapy. The CPAP therapy has been affecting beneficial. He continues using more than 4 hours a night. He has been getting supplies readily available. He still dealing with significant back pain. He had an appoint with pain management but because a history of cancer does felt that he needs to follow up closely with Oncology in case this is metastatic disease. The patient needs to follow-up with oncology. He was going to [facility] for his oncological care. He will Call for an appointment. In the meantime he is having hard time sleeping far because of the back pain and also because insomnia. Therefore will go ahead and increase his gabapentin to a more effective dose at nighttime. He is currently looking for a PCP and also needs a Neurologist. 04/03/2022 the patient is here for a pulmonary follow-up visit. The patient has multiple complaints. A lot of them are not pulmonary. He still struggling to find a primary care doctor. The patient continues with respiratory therapy. In addition to that he continues uses CPAP every night. The CPAP therapy continues to be affecting beneficial. He does use CPAP for more than 4 hours a night. He has been complaining of joint pains. He did see the neurologist and he may have a component of carpal tunnel. The patient also had elevations in his BRIAN titers and also positive double-stranded DNA titers. He does have chest discomfort at times. Denies any rashes. In order to treat his she pleuritic discomfort and arthritis are go ahead and place him on Plaquenil. The patient will benefit from a rheumatological evaluation. Meantime she will continue with current respiratory regimen. 06/29/2022 the patient is here for a pulmo maryy follow-up visit. The patient is doing well from a respiratory status. He is using CPAP every night. He does use it every night for more than 4 hours a night. He does get a lot of benefit from the CPAP. He did get a call from a [employer] recently about his CPAP. He is concerned that the going to take away his CPAP. His CPAP appears to be very old he has at rest med S9 which is more than 10 years old. Still appears to be effective any did recently get supplies for. Although at some point may stop working. He may need to get a replacement. He will bring in the CPAP to the next visit so we can evaluated and see if he needs to get a new 1 order then. He continues uses respiratory therapy with good effect. Still dealing with significant other elements as far as neurological musculoskeletal. He did follow-up with Neurology who will refer him to a hand surgeon and also will be seen Rheumatology soon. 01/02/2023 the patient is here for a pulmonary follow-up visit. From a respiratory status the patient developed a cough in respiratory illness. Clinically he is feeling better although he feels like he needs inhaler. He has had inhalers in the past. Will go ahead and send him Symbicort that he can actually use as needed. He knows to rinse his mouth after he uses it. The patient also has been using the CPAP. He did bring it in he has an old rest med S9 machine that is likely more than 10 years old. The APAP set up 10-12 cm of water. His AHI is down to 0.8 events per hour. This is all very reassuring. He does use it for more than 4 hours a night typically the whole night. The therapy has been very effective beneficial specially with paralyzed diaphragm. The patient does need a replacement machine since her machine is now older than 10 years. Will go ahead and request a replacement machine from his [employer], [employer]. In addition to this he still dealing with significant aches. He did have carpal tunnel surgery in now complaining of a tendinitis of the elbow which is very uncomfortable. The patient is also having some pleuritic discomfort so the chest area. He did have undergo a chest x-ray recently and I did reviewed. Appears that he does have a loose sternal wire from the open heart surgery that he had as a young adult. 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 Gender identity: Male Review of Systems Const Denies difficulty sleeping, Denies snoring and Reports weakness ENT Reports no additional complaints and Reports neck pain Card Reports chest pain, Reports rapid heart rate and Reports dyspnea Resp Reports cough, Reports dyspnea and Denies snoring GI Reports no additional complaints Reports no additional complaints Musc Reports as per HPI, Reports back pain, Reports myalgias, Reports limited range of motion, Reports muscle weakness, Reports neck pain, Reports numbness and Reports radiating pain into limb Neuro Reports numbness and Reports weakness Psych Reports anxiety and Reports depression Physical Exam Vital Signs: Last Vital Signs Pulse 82 01/02/23 09:58 Pulse Ox 99 01/02/23 09:58 Oxygen Delivery Method Room Air 01/02/23 09:58 BMI result Body Mass Index 27.1 Const General: alert Neck Neck: Yes normal visual inspection, Yes full ROM and Yes no lymphadenopathy Chest Chest palpation & inspection: normal inspection of the chest Resp Auscultation: no crackles, no rales and diminished lung sounds Cardio Rate: regular rate Rhythm: regular rhythm Heart sounds: S1 normal heart sound present and S2 normal heart sound present GI Palpation (GI): Soft to palpation and nontender Auscultation: normal bowel sounds General: Yes CVA tenderness Back/Spine/Pelvis Back: CVA tenderness Skin General skin exam: rashes and/or lesions noted Extrem General: No clubbing and No cyanosis Assessment & Plan Assessment & Plan (1) Asthma: Code(s): J45.909 - Unspecified asthma, uncomplicated Qualifiers: Asthma complication type: uncomplicated Asthma persistence: persistent Asthma severity: moderate Qualified Code(s): J45.40 - Moderate persistent asthma, uncomplicated (2) BETHEL on CPAP: Code(s): G47.33 - Obstructive sleep apnea (adult) (pediatric); Z99.89 - Dependence on other enabling machines and devices (3) Chronic restrictive lung disease: Code(s): J98.4 - Other disorders of lung (4) Dyspnea: Comment: multifactorial. Has both obstructive and restrictive lung disease Code(s): R06.00 - Dyspnea, unspecified Qualifiers: Dyspnea type: dyspnea on exertion Qualified Code(s): R06.00 - Dyspnea, unspecified (5) Paralysis, diaphragm: Comment: secondary to his surgery Code(s): J98.6 - Disorders of diaphragm (6) Lymphadenopathy: Code(s): R59.1 - Generalized enlarged lymph nodes Plan stopped Breo start Symbicort Claritin daily continue gabapentin CPAP therapy, has a S9, will request a replacement APAP resmed airsense 11 CXR F/U 6 months Orders: Orders XR chest 2V Today R05.9 - Cough, unspecified Medications: New diclofenac sodium 1% (Voltaren Arthritis Pain) apply to single elbow, wrist or hand; for hand includes palm/fingers/back of hand 2 grams topical QID 30 days 100 grams 0RF budesonide-formoterol 160-4.5 mcg/actuation (Symbicort) 2 puffs inhalation BID 30 days 10.2 grams 11RF J44.89 - Other specified chronic obstructive pulmonary disease Coding Level of Care Code Est Pt Level 4 (06907) Diagnoses Moderate persistent asthma without complication J45.40 Asthma complication type: uncomplicated Asthma persistence: persistent Asthma severity: moderate BETHEL on CPAP G47.33; Z99.89 Chronic restrictive lung disease J98.4 Dyspnea on exertion R06.00 Dyspnea type: dyspnea on exertion Paralysis, diaphragm J98.6 Lymphadenopathy R59.1 Time Spent (min) 18
== END 2023-01-02 10:29 | disposition home or self-care (01) ==
PROVIDERS: PCP Internal Medicine; Visit Provider Hospitalist
DX: J45.40 Moderate persistent asthma, uncomplicated (principal); G47.33 Obstructive sleep apnea (adult) (pediatric); Z99.89 Dependence on other enabling machines and devices; J98.4 Other disorders of lung; R06.00 Dyspnea, unspecified; J98.6 Disorders of diaphragm; R59.1 Generalized enlarged lymph nodes
CPT/HCPCS: 99214

== ENCOUNTER 2023-01-02 09:19 | Outpatient (REF) | payer OTHER, SELFPAY | END 2023-01-02 09:20 | disposition home or self-care (01) | LOC: HO.XRAY 09:19 | PROVIDERS: Visit Provider Hospitalist | DX: J45.40 Moderate persistent asthma, uncomplicated (principal); G47.33 Obstructive sleep apnea (adult) (pediatric); J98.4 Other disorders of lung; R06.00 Dyspnea, unspecified; J98.6 Disorders of diaphragm; R59.1 Generalized enlarged lymph nodes; Z99.89 Dependence on other enabling machines and devices | CPT/HCPCS: 71046; 72040; 99212 ==

== ENCOUNTER 2023-02-05 11:40 | Outpatient (AMB) | payer OTHER, SELFPAY ==
--- NOTE | 2023-02-05 13:00 | MHC.OFFVIS ---
Intake Vital Signs 02/05/23 13:02 Height 5 ft 3 in Weight 153 lb BMI 27.1 Intake Visit Reasons: ov-R CTR 08/16/22 AR Intake Note: Steve 47 yr old man presents today for his S/P Right CTR 08/16/22 for his ROM check. States his ROM is improving however he is having pain by his incision when applying pressure. Allergies No Known Allergies Allergy (Verified 02/05/23 13:01) HPI ov-R CTR 08/16/22 AR HPI Details Steve is a 48-year-old man who is seen today with many painful complaints. He complains of pain in the dorsal aspect of both forearms radiating up to both shoulders. He also has pain in both hips. He was last seen for his right carpal tunnel syndrome and is status post release on 08/15/2022. He initially had trouble with hypersensitivity and pillar pain. He was seen by our OT hand therapists until the end of October. He says now he feels like his sensation is mostly normal in his hand any no longer has the tingling. He also says the pain in the base of his palm is much better. It sounds like he is having a lot of trouble with pain in general. He says he is being seen by rheumatology and they have had him on a medication, but he has been taking it intermittently based somewhat he feels he would work well for him, and it does not sound like he has been talking to a senior account executive about the fact that he thinks that this medication is difficult for him. He says he is fibromyalgia, but is not sure of other rheumatologic diagnoses. He also lost his psychiatrist but is supposed to start with a new psychiatrist tomorrow. He says he lost his primary care provider and does not have a primary care provider He also talks about some kind of suture that was left in both sides of his chest was surgery years ago that he thinks might be causing all of his problems. He says that some is going to do some radiographs were something to work that up. [facility] Medical History Abnormal chest x-ray BRIAN positive Asthma B12 deficiency Breast cancer in male Carpal tunnel syndrome on both sides Chronic restrictive lung disease Diabetes type 2, controlled Diabetic neuropathy associated with type 2 diabetes mellitus Dyslipidemia Dyspnea Hypertension Insomnia Leg weakness Lupus (systemic lupus erythematosus) Lymphadenopathy BETHEL on CPAP Overweight (BMI 25.0-29.9) Paralysis, diaphragm [id number] syndrome Sarcoidosis Testicular cancer Vitamin D deficiency Surgical History History of lung surgery Hx of nephrolithotomy with removal of calculi Family History Father Diabetes Heart disease Hypertension Brother Diabetes Arthritis Mother Diabetes Arthritis Obesity Brother No problems noted. 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 Gender identity: Male Physical Exam Vital Signs: BMI result Body Mass Index 27.1 Extrem Other: The patient was alert oriented and in no acute distress, but was visibly sad and this may it over his problems with generalized pain. He can actively extend all of his digits in both hands and bring them closed to a fist. With regards to his right hand he can make a tight fist with good strength and no pain. His surgical incision is well healed and is no longer tender to palpation. He says sensation in his fingers is almost normal is hard to tell whether is the same as the small finger or not. He denies having numbness and tingling in the hand and says all in all the right hand is doing better. He does complain of pain in the right dorsal forearm and also in the left dorsal forearm. He does have tenderness over the extensor origin just distal to the lateral epicondyle. I did ask him whether he has ever had an injection for lateral epicondylitis but he did could not remember and did not really answer. He has a forearm strap it sounds like he does not really use it. It sounds like he has intermittently tried therapy for this. It sounds like he is very sad about things in that he is likely going to end up crippled like his grandmother. Assessment & Plan Assessment & Plan (1) Carpal tunnel syndrome of right wrist: Code(s): G56.01 - Carpal tunnel syndrome, right upper limb Plan 1. Right carpal tunnel syndrome status post release Date of surgery 08/15/2022 Patient had set in his previous visit he had normal sensation following surgery. Today says that it is not really normal but it is almost normal. He no longer complains of pain in the base of his palm. 2. Left carpal tunnel syndrome, mild Symptoms intermittent but daily worse at night. It took him a long time to get to where he was happy with the results of the surgery in his right hand. At present he is complaining of multiple painful episodes in multiple parts of his body. 3. Right forearm pain Most likely right lateral epicondylitis. I encouraged him to continue doing the stretching exercises for his right lateral epicondylitis to wears forearm strap.? Did talk about possible steroid injection but it did not seem like he really wanted that today. I reminded him that there are a lot of people trying to help him. It sounds like he needs to get set up with his new psychiatrist, and will do so tomorrow.. I also encouraged him to talk with his senior account executive about the problems he feels like he is having with the medication so that they can either make changes or just his medication rather than having him just to side when he thinks it might be good to take it and when it is not good to take. I also offered to refer him for pain management to see if perhaps they had something they could offer but he did not sound like he was interested in that. This point he will follow up p.r.n.. Coding Level of Care Code Est Pt Level 3 (84702) Diagnoses Carpal tunnel syndrome of right wrist G56.01
[2023-02-05 13:02] VITALS: BMI 27.1
== END 2023-02-05 13:42 | disposition home or self-care (01) ==
PROVIDERS: Visit Provider Orthopaedic Surgery
DX: G56.03 Carpal tunnel syndrome, bilateral upper limbs (principal)
CPT/HCPCS: 99213

== ENCOUNTER → 2023-02-05 11:40 | Outpatient (BNVA) | payer OTHER, SELFPAY | PROVIDERS: Visit Provider Orthopaedic Surgery | DX: M79.631 Pain in right forearm (principal); G56.02 Carpal tunnel syndrome, left upper limb; Z86.69 Personal history of other diseases of the nervous system and sense organs | CPT/HCPCS: 99212 ==

== ENCOUNTER 2023-02-07 12:09 | Outpatient (REF) | payer OTHER, SELFPAY ==
--- NOTE | ~2023-02-07 | CT_ITS ---
EXAMINATION: CT CHEST WITHOUT CONTRAST CLINICAL INFORMATION: Abnormal findings on diagnostic imaging COMPARISON: Chest radiographs dated 01/02/2023 and 05/26/2021 TECHNIQUE: Multidetector volumetric CT imaging of the chest was done. Axial MIP volume rendering provided. Sagittal and coronal reformatted images were obtained. This CT examination was performed using dose optimization techniques as appropriate, variously including the following: *Automated exposure control *Adjustment of mA and/or kV according to patient size (this includes techniques or standardized protocols for targeted exams where dose is matched to indication/reason for exam; i.e. extremities or head) *Use of iterative reconstruction technique DLP: 180 mGy-cm FINDINGS: CREDIT UNION TELLER: Elevated left hemidiaphragm with atelectasis. Broken median sternotomy wires with sternal fracture. LUNGS: Trachea and bronchi are patent. Left compressive atelectasis associated with elevated left hemidiaphragm. Small right calcified granuloma. MEDIASTINUM: No thyroid nodules. No pathologic lymphadenopathy. Heart size within normal limits. No pericardial effusion. Nonaneurysmal aorta. Nonenlarged pulmonary arteries. CORONARY ARTERY CALCIFICATION: Mild to moderate. PLEURA: There is no pleural effusion. No pleural mass or thickening. Minor right upper lobe pleural nodularity, 3:20-24. AXILLA: Right axillary lymphadenopathy, largest node with cortical thickening measuring measuring 2.9 cm. Nonspecific left axillary lymph nodes. UPPER ABDOMEN: Elevated left hemidiaphragm. 3 Lobulated left kidney with ill-defined hypodensity in the upper pole with punctate medial calcification. OSSEOUS AND SOFT TISSUE STRUCTURES: Mild gynecomastia. Depressed sternal fracture with associated discontinuous sternotomy wires. CT/CT chest wo IV con IMPRESSION: No acute intrathoracic pathology. Elevated left hemidiaphragm with compressive atelectasis. Sternal fracture with broken median sternotomy wires. Right axillary lymphadenopathy. Correlate with physical examination and laboratory values. Right axillary ultrasound recommended. Lobulated left kidney with left upper pole hypodensity and calcification. Renal ultrasound recommended. Fleischner guidelines were followed.
== END 2023-02-07 12:10 | disposition home or self-care (01) ==
LOC: HO.CT 12:09
PROVIDERS: PCP Internal Medicine; Visit Provider Hospitalist
DX: R07.9 Chest pain, unspecified (principal); R93.89 Abnormal findings on diagnostic imaging of other specified body structures
CPT/HCPCS: 71250

== ENCOUNTER 2023-04-23 12:22 | Outpatient (REF) | payer OTHER, SELFPAY ==
[2023-04-23 13:23] LABS: MANUAL DIFF FLAG NO
[2023-04-23 13:45] LABS: Basophils Absolute Auto 0.1 X10*3/uL (0.0-0.2); Basophils Percent Auto 0.8 % (0-2); Eosinophils Absolute Auto 0.2 X10*3/uL (0.0-0.4); Hematocrit 43.6 % (42.0-52.0); Hemoglobin 14.2 g/dl (14.0-18.0); Imm Gran Abs Auto 0.05 X10*3/uL (0.00-0.03); Imm Gran Pct Auto 0.8 % (0.0-0.4); Lymphocytes Percent Auto 33.2 % (20-40); Mean Corpuscular HGB Conc 32.6 g/dl (31.0-36.0); Mean Corpuscular Hemoglobin 28.2 pg (27.0-33.0); Mean Corpuscular Volume 86.7 fL (80.0-98.0); Mean Platelet Volume 10.7 fL (9.4-12.4); Monocytes Absolute Auto 0.4 X10*3/uL (0.1-1.2); Monocytes Percent Auto 6.3 % (2-11); Neutrophils Absolute Auto 3.4 x10*3/uL (2.0-8.3); Neutrophils Percent Auto 55.9 % (45-73); Platelet Count 219 X10*3/uL (160-400); Red Blood Count 5.03 X10*6/uL (4.60-5.80); Red Cell Distribution Width 11.9 % (11.0-16.0)
[2023-04-23 14:07] LABS: Alanine Aminotransferase 24 U/L (0-40); Albumin Level 5.1 g/dL (3.5-5.0); Alkaline Phosphatase 73 U/L (39-117); Anion Gap 12 (12-20); Aspartate Amino Transferase 19 U/L (5-37); Bilirubin Total 0.4 mg/dL (0.0-1.0); Blood Urea Nitrogen 11 mg/dL (9-16); C Reactive Protein < 0.04 mg/dL (< or = 0.50); Calcium 9.9 mg/dL (8.4-10.2); Carbon Dioxide 30 mmol/L (22-29); Chloride 104 mmol/L (96-108); Estimated Glomerular Filt Rate > 60; Glucose Random 88 mg/dL (60-115); Potassium 3.9 mmol/L (3.3-5.1); Sodium 142 mmol/L (135-145); Total Protein 8.9 g/dL (6.5-8.0)
[2023-04-23 14:30] LABS: Erythrocyte Sedimentation Rate 10 MM/HR (0-15)
[2023-04-23 14:47] LABS: Creatinine Urine 130.48 mg/dL; Protein/Creatinine Ratio, Ur 0.08 (<0.2); Total Protein Urine Random 10 mg/dL (<12)
[2023-04-23 15:48] LABS: Appearance Urine Clear; Color Urine Yellow; Glucose Urine UA Negative (Negative); Leukocyte Esterase Urine Negative (Negative); Nitrite Urine Negative (Negative); PH 6.5 (5.0-9.0); Urine Blood Negative (Negative); Urine Ketones Negative (Negative); Urine Protein Negative (Neg-Trace)
[2023-04-23 16:43] LABS: Bacteria Urine None Seen (None Seen); Calcium Oxalate Crystals Urine Present; Hyaline Casts Urine 0-2 /LPF (0-2); RBC Urine 0-2 /HPF (0-2); Squamous Epithelial Cell Urine 0-2 /HPF (0-2); WBC Urine 0-5 /HPF (0-5)
[2023-04-24 11:38] LABS: Complement C3 149 mg/dL (82-185)
[2023-04-24 20:49] LABS: Anti DNA DS Antibody 20 IU/mL
[2023-04-26 18:18] LABS: Lysozyme, Serum 6.7 mcg/mL (5.0-11.0)
== END 2023-04-23 12:23 | disposition home or self-care (01) ==
LOC: HO.LAB 12:22
PROVIDERS: PCP Internal Medicine; Visit Provider Student in an Organized Health Care Education/Training Program
DX: M32.9 Systemic lupus erythematosus, unspecified (principal)
CPT/HCPCS: 36415; 80053; 81001; 82570; 84156; 85025; 85549; 85652; 86140; 86160; 86225

== ENCOUNTER 2023-04-25 09:15 | Outpatient (AMB) | payer OTHER, SELFPAY ==
[2023-04-25 09:38] VITALS: BP 108/60; PULSE 83; TEMP 36.7; O2SAT 98; BMI 28.1
--- NOTE | 2023-04-25 09:38 | A.OFFVIS_ITS ---
Intake Vital Signs 04/25/23 09:38 Height 5 ft 3 in Weight 158 lb 8.198 oz BMI 28.1 BP 108/60 Blood Pressure Location Rt brachial Position Sitting Pulse 83 Pulse Source Pulse Oximeter Temp 98.1 F Temp Source Skin Pulse Oximetry (%) 98 Oxygen Delivery Method Room Air Intake Visit Reasons: DsDNA +ve Intake Note: Patient last seen 11/01/22 presents today for follow up and test results. Pt c/o lots of pain and states he doesn't know what to do in regards to his pain, he is very frustrated. Mentions pain is in chest at surgery site, but also widespread. Describes pain as sharp/stabbing. Concerned with nodules/lumps Recent x[place] done with [facility] [place] [facility] [place] Reports taking HCQ on and off; Consulting Technical Director Required: Yes Consulting Technical Director Name: [id number] Information Interpreted: clinical only Accompanied by: Self / Same As Patient Allergies No Known Allergies Allergy (Verified 04/25/23 10:01) Medication List - Last Reconciled 04/25/23 by Sulma Latham MD blood sugar diagnostic (FreeStyle Lite Strips) 2 times a day budesonide-formoterol 160-4.5 mcg/actuation (Symbicort) 2 puffs inhalation BID 30 days clonazepam 1 mg PO QAM CPAP (CPAP Machine/Device) As directed cyanocobalamin (vitamin B-12) 500 mcg sublingual DAILY 30 days diclofenac sodium 1% (Voltaren Arthritis Pain) 2 grams topical QID 30 days dulaglutide (Trulicity) 1.5 mg (0.5 mL) subcut QWEEK ezetimibe 10 mg PO DAILY 30 days ferrous sulfate 325 mg PO DAILY fluticasone furoate-vilanterol 100-25 mcg/dose (Breo Ellipta) 1 ea PO DAILY gabapentin Take 1 capsule in AM, 1 capsule at noon, 2 capsules at bedtime; 30 days gemfibrozil 600 mg PO BID hydroxychloroquine 200 mg PO DAILY lancets (FreeStyle Lancets) Twice a day lisinopril 5 mg PO DAILY 30 days loratadine 10 mg PO DAILY metformin 500 mg PO DAILY montelukast 10 mg PO BEDTIME omega-3 fatty acids 1,000 mg PO BID 30 days paroxetine HCl 30 mg PO DAILY rosuvastatin 20 mg PO DAILY 90 days trazodone 50 mg PO BEDTIME PRN HPI HPI Comments History of Present Illness Details Patient returns for follow-up. States that he takes the Plaquenil inconsistently as he believes it causes mood changes. He takes 1 tablet once daily. It was prescribed by pulmonology. Was recently evaluated by Ophthalmology and cleared to continue Plaquenil. Patient continues to have intermittent pain and swelling of lymph nodes in his axillary regions, sometimes uncomfortable. He continues to have diffuse bone pain everywhere. Initial history: This is a 47-year-old male with complex past medical history including testicular cancer s/p surgery and chemotherapy. He also has history of BETHEL and asthma. He is referred for diffuse joint pain as well as a positive BRIAN. Patient stated that he was diagnosed with testicular cancer many years ago s/p surgical treatment and chemotherapy. He stated that chemotherapy had to be stopped due to significant anemia and he had to get blood transfusions. He stated that after he got his treatment he was told that his cancer can come back. He has not been evaluated by an oncologist in over 5 years. Patient has diffuse pain everywhere. He was prescribed hydroxychloroquine 200 mg daily as a therapeutic trial by Dr. Win. He was also started on prednisone by Dr. Win. Patient cannot tell whether there is an improvement with prednisone or hydroxychloroquine. He is unaware of any family history of autoimmune rheumatic disease. Over the last 2-3 years he has developed progressively spreading lymphadenopathy of his neck, axilla and groin. 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 Gender identity: Male Review of Systems Const Reports fatigue and Reports weakness Musc Reports arthralgias Neuro Reports weakness Psych Reports anxiety and Reports depression Endo Reports fatigue Physical Exam Vital Signs: Last Vital Signs Temp 98.1 F 04/25/23 09:38 Pulse 83 04/25/23 09:38 BP 108/60 04/25/23 09:38 Pulse Ox 98 04/25/23 09:38 Oxygen Delivery Method Room Air 04/25/23 09:38 BMI result Body Mass Index 28.1 Const General: cooperative, healthy appearing and comfortable Nutritional Appearance: overweight Orientation/consciousness: patient oriented x3 Limitations: no limitations HEENT Head: Yes normocephalic and Yes atraumatic Mouth: moist mucous membranes Resp Effort & Inspection: normal respiratory effort and able to speak in complete sentences Auscultation: clear to auscultation bilaterally Cardio Rate: regular rate Rhythm: regular rhythm Heart sounds: S1 normal heart sound present and S2 normal heart sound present Neuro General: patient oriented x3 Extrem Other: Diffuse fibromyalgia tender points Multiple Heberden's nodes , mildly tender Results Reviewed Results Reviewed: Left inguinal lymph node excisional biopsy: Reactive lymph node with follicular and paracortical hyperplasia, progressive transformation of germinal centers and increase IgG4 polyclonal plasma cells.? No evidence of lymphoma.? See comment Comment:? The morphologic and immunophenotypic findings are of a reactive lymph node with progressive transformation of germinal centers and increased IgG4 plasma cells which raise a differential diagnosis that includes: 1-IgG4 related disease 2 reactive lymphadenopathy with increased IgG4 plasma cells occurring in patients with hyper interleukin 6 syndromes (rheumatoid arthritis and other immune mediated diseases.? Because of histologic overlap, the differential diagnosis between IgG4 related disease and hyper interleukin 6 syndrome requires correlation with serum levels of IgG, IgA, IgM and C-reactive protein Flow cytometry studies performed on cell suspension of this lymph node are consistent with non neoplastic T and B-cell populations Microscopic:? In most areas there are >30 IgG4+ plasma cells/high-power field.? Also the IgG4+/IgG plasma cell ratio is > 40% Surgical pathology in 06/2011 A splenic flexure polyp:? Consistent with an inflammatory polyp? B small bowel biopsy:? Duodenal mucosa with preserved villi and increased intraepithelial lymphocytes Note C3 antibody demonstrate increased intraepithelial T lymphocytes suggesting celiac sprue.? Serologic correlation is warranted C gastric antrum biopsy:? Gastric antrum/body mucosa with mild reactive changes.? No H pylori bacteria identified by immunohistochemistry Liver core biopsy 10/2004 Final diagnosis Steatohepatitis with mild necroinflammatory activity and minimal periportal fibrosis grade 1,? stage 0-1 Note: The biopsy demonstrate severe mixed micro and macrovesicular steatosis associated with a mild portal and scattered lobular lymphoplasmacytic infiltrate.? Scattered lipogranulomatous are present.? Portal tracts are focally enlarged with minimal periportal fibrosis.? Liver architecture is maintained.? No high LN is identified.? The differential diagnosis includes alcohol, drugs, obesity, hyperlipidemia, diabetes mellitus and other toxic and metabolic conditions.? Clinical correlation is necessary. Results of special stain: Trichrome stain:? Demonstrates mild portal fibrosis.?? Reticulin stain:? Highlights patchy regeneration and irregularity of hepatocyte plates Iron stain:? Negative for hemosiderin deposition PAS/Diastase stain:? Highlights scattered pigment-laden macrophages Assessment & Plan Assessment & Plan (1) BRIAN positive: Code(s): R76.8 - Other specified abnormal immunological findings in serum Plan: This is a 48-year-old male with past medical history of testicular cancer s/p surgery and chemotherapy presents for evaluation of diffuse pain, positive BRIAN, positive dsDNA. Continues to feel about the same. With widespread pains and random tingling and numbness of his skin. Per patient he continues to get intermittent lymphadenopathy. Patient takes patient takes hydroxychloroquine 200 mg daily, does not take it consistently as he believes it causes mood changes. I do not see any signs of active SLE that require treatment at this point. Patient has no cytopenias, no nephritis or proteinuria, there is no inflammatory arthritis or mucocutaneous lesions. Symptoms are consistent with fibromyalgia. I discussed nature of fibromyalgia with patient. Advised patient to try to incorporate light activity. Try to work on his sleep. He already has a psychiatrist and a psychologist. He is on gabapentin, Klonopin, trazodone, paroxetine. I reviewed outside records which showed an inguinal lymph node biopsy with increased IgG4 cells. I will check IgG4 levels with next set of labs. However I do not see any manifestations of IgG4 related disease. Duodenal biopsy suggested celiac sprue. Will also check celiac antibodies. Labs before next visit in 6 months Plan I spent 47 minutes reviewing patient's chart, outside charts, evaluating patient, ordering diagnostic workup counseling patient and documenting in the chart Orders: Orders Complete Blood Count Auto Diff 6 Months M32.9 - Systemic lupus erythematosus, unspecified Comprehensive Met. Panel 6 Months M32.9 - Systemic lupus erythematosus, unspecified Erythrocyte Sedimentation Rate 6 Months M32.9 - Systemic lupus erythematosus, unspecified Complement C3 6 Months M32.9 - Systemic lupus erythematosus, unspecified Complement C4 6 Months M32.9 - Systemic lupus erythematosus, unspecified DNA Double Stranded-Crithidia 6 Months M32.9 - Systemic lupus erythematosus, unspecified UA w Microscopic 6 Months M32.9 - Systemic lupus erythematosus, unspecified Immunoglobulins,IgG IgA IgM 6 Months D8.84 - IgG4-related disease Protein Electrophoresis, Serum 6 Months D8.84 - IgG4-related disease C Reactive Protein 6 Months M32.9 - Systemic lupus erythematosus, unspecified Anti DNA DS Antibody 6 Months M32.9 - Systemic lupus erythematosus, unspecified Protein Creatinine Ratio, Ur 6 Months M32.9 - Systemic lupus erythematosus, unspecified Celiac Disease Panel 6 Months K90.0 - Celiac disease Immunofixation Pnl, Serum 6 Months D8.84 - IgG4-related disease Immunoglobulin G Subclasses 6 Months D8.84 - IgG4-related disease Coding Level of Care Code Est Pt Level 5 (20113) Diagnoses BRIAN positive R76.8
== END 2023-04-25 10:17 | disposition home or self-care (01) ==
PROVIDERS: Visit Provider Student in an Organized Health Care Education/Training Program
DX: R76.8 Other specified abnormal immunological findings in serum (principal)
CPT/HCPCS: 99215

== ENCOUNTER → 2023-04-25 09:15 | Outpatient (BNVA) | payer OTHER, SELFPAY | PROVIDERS: Visit Provider Student in an Organized Health Care Education/Training Program | DX: R76.8 Other specified abnormal immunological findings in serum (principal); Z85.47 Personal history of malignant neoplasm of testis; Z92.21 Personal history of antineoplastic chemotherapy | CPT/HCPCS: 99212 ==

== ENCOUNTER 2023-05-10 12:36 | Outpatient (REF) | payer OTHER, SELFPAY ==
[2023-05-13 22:58] LABS: Immunoglobulin A 398 mg/dL (47-310); Transglutaminase IgA <1.0 U/mL
== END 2023-05-10 12:37 | disposition home or self-care (01) ==
LOC: HO.XRAY 12:36
PROVIDERS: Visit Provider Hospitalist
DX: J98.4 Other disorders of lung (principal); J45.40 Moderate persistent asthma, uncomplicated; J98.6 Disorders of diaphragm; R06.00 Dyspnea, unspecified; G47.33 Obstructive sleep apnea (adult) (pediatric); R07.9 Chest pain, unspecified; R10.9 Unspecified abdominal pain; R59.1 Generalized enlarged lymph nodes; Z99.89 Dependence on other enabling machines and devices
CPT/HCPCS: 36415; 82784; 86364; 99212

== ENCOUNTER 2023-05-10 12:36 | Outpatient (AMB) | payer OTHER, SELFPAY ==
[2023-05-10 12:53] VITALS: BP 102/60; PULSE 83; O2SAT 98; BMI 28.3
--- NOTE | 2023-05-10 12:53 | A.OFFVIS_ITS ---
Intake Vital Signs 05/10/23 12:53 Height 5 ft 3 in Weight 160 lb BMI 28.3 BP 102/60 Blood Pressure Location Lt brachial Position Sitting Pulse 83 Pulse Source Pulse Oximeter Pulse Oximetry (%) 98 Oxygen Delivery Method Room Air Intake Visit Reasons: Asthma Intake Note: pt is here for follow up and states he is not too good today. Allergies No Known Allergies Allergy (Verified 05/10/23 12:55) HPI HPI Comments History of Present Illness Details The patient is 48 y/o man with a history of asthma in addition to obstructive sleep apnea. We did switch his mask the last visit and is tolerating it much better. He is also getting supplies regularly now. The CPAP therapy continues to be affecting beneficial. He is using more than 4 hours a night. His asthma appears to be in better control. He continues to use his respiratory regimen including his allergy medicine. He is not using the short-acting beta agonist more than twice a week. He has been complaining of other issues including arthralgias and what appears to be neuropathic pain. He is having hard time sleeping with it. Therefore affecting his daytime drowsiness. He does have a prescription of gabapentin but he is not using it at this time as prescribed. I requested that I can at least use it at nighttime to can help him sleep in also helping with the pain. 12/29/2021 the patient is here for a pulm onary follow-up visit. Breathing has been stable with his current respiratory therapy. The CPAP therapy has been affecting beneficial. He continues using more than 4 hours a night. He has been getting supplies readily available. He still dealing with significant back pain. He had an appoint with pain management but because a history of cancer does felt that he needs to follow up closely with Oncology in case this is metastatic disease. The patient needs to follow-up with oncology. He was going to [facility] for his oncological care. He will Call for an appointment. In the meantime he is having hard time sleeping far because of the back pain and also because insomnia. Therefore will go ahead and increase his gabapentin to a more effective dose at nighttime. He is currently looking for a PCP and also needs a Neurologist. 04/03/2022 the patient is here for a pulmonary follow-up visit. The patient has multiple complaints. A lot of them are not pulmonary. He still struggling to find a primary care doctor. The patient continues with respiratory therapy. In addition to that he continues uses CPAP every night. The CPAP therapy continues to be affecting beneficial. He does use CPAP for more than 4 hours a night. He has been complaining of joint pains. He did see the neurologist and he may have a component of carpal tunnel. The patient also had elevations in his BRIAN titers and also positive double-stranded DNA titers. He does have chest discomfort at times. Denies any rashes. In order to treat his she pleuritic discomfort and arthritis are go ahead and place him on Plaquenil. The patient will benefit from a rheumatological evaluation. Meantime she will continue with current respiratory regimen. 06/29/2022 the patient is here for a pulmo parker follow-up visit. The patient is doing well from a respiratory status. He is using CPAP every night. He does use it every night for more than 4 hours a night. He does get a lot of benefit from the CPAP. He did get a call from a [employer] recently about his CPAP. He is concerned that the going to take away his CPAP. His CPAP appears to be very old he has at rest med S9 which is more than 10 years old. Still appears to be effective any did recently get supplies for. Although at some point may stop working. He may need to get a replacement. He will bring in the CPAP to the next visit so we can evaluated and see if he needs to get a new 1 order then. He continues uses respiratory therapy with good effect. Still dealing with significant other elements as far as neurological musculoskeletal. He did follow-up with Neurology who will refer him to a hand surgeon and also will be seen Rheumatology soon. 01/02/2023 the patient is here for a pulmonary follow-up visit. From a r espiratory status the patient developed a cough in respiratory illness. Clinically he is feeling better although he feels like he needs inhaler. He has had inhalers in the past. Will go ahead and send him Symbicort that he can actually use as needed. He knows to rinse his mouth after he uses it. The patient also has been using the CPAP. He did bring it in he has an old rest med S9 machine that is likely more than 10 years old. The APAP set up 10-12 cm of water. His AHI is down to 0.8 events per hour. This is all very reassuring. He does use it for more than 4 hours a night typically the whole night. The therapy has been very effective beneficial specially with paralyzed diaphragm. The patient does need a replacement machine since her machine is now older than 10 years. Will go ahead and request a replacement machine from his DME company, [facility]. In addition to this he still dealing with significant aches. He did have carpal tunnel surgery in now complaining of a tendinitis of the elbow which is very uncomfortable. The patient is also having some pleuritic discomfort so the chest area. He did have undergo a chest x-ray recently and I did reviewed. Appears that he does have a loose sternal wire from the open heart surgery that he had as a young adult. 05/10/2023 the patient is here for a pulmonary follow-up visit. The patient overall continues have multiple complaints. Breathing though he has been doing well. Continues in his respiratory inhalers with good effect. Also the CPAP therapy has been affecting beneficial. He does use it for more than 4 hours a night. His adherence is 100%. He can not be without it. The patient needs to be able to get supplies from his [employer] company. I will make sure to do that. Although at this point the machine that he has been using his older than 10 years. We had requested a replacement machine but for some reason he did not get 1. I do believe that for better response to therapy a new machine will be able to be monitor closely and adjusted accordingly. Will go ahead and request the replacement machine at this time from his DME company. Also having issues significant pain. He was evaluated from a rheumatological standpoint. Significant small joint discomfort. Both the risk and also the elbows. The patient has been on the Plaquenil that initially he stopped but then he is going to restart. He was concerned about some of the side effects. In addition to that I give him a short course of prednisone to try to help him with that. He is also having abdominal discomfort. Did have a previous endoscopic biopsy demonstrating the possibility of celiac disease. Therefore, will go ahead and give her some prednisone and also requesting blood work to assess further diagnosis of potential celiac with his underlying diabetes. The patient may benefit from a referral to a dieitian if that i the case. [facility] Medical History (Updated 05/13/23 @ 19:41 by Davide Win MD) Abdominal pain Breast cancer in male Sarcoidosis Lupus (systemic lupus erythematosus) Testicular cancer Carpal tunnel syndrome on both sides BRIAN positive Abnormal chest x-ray Insomnia [id number] syndrome Lymphadenopathy Leg weakness Chronic restrictive lung disease Dyspnea Paralysis, diaphragm BETHEL on CPAP Asthma B12 deficiency Diabetic neuropathy associated with type 2 diabetes mellitus Overweight (BMI 25.0-29.9) Vitamin D deficiency Hypertension Dyslipidemia Diabetes type 2, controlled Surgical History S/P carpal tunnel release Hx of nephrolithotomy with removal of calculi History of lung surgery Family History Father Diabetes Heart disease Hypertension Brother Diabetes Arthritis Mother Diabetes Arthritis Obesity Brother No problems noted. 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 Gender identity: Male Review of Systems Const Denies difficulty sleeping, Denies snoring and Reports weakness ENT Reports no additional complaints and Reports neck pain Card Reports chest pain, Reports rapid heart rate and Reports dyspnea Resp Reports cough, Reports dyspnea and Denies snoring GI Reports abdominal pain Reports no additional complaints Musc Reports as per HPI, Reports back pain, Reports myalgias, Reports limited range of motion, Reports muscle weakness, Reports neck pain, Reports numbness and Reports radiating pain into limb Neuro Reports numbness and Reports weakness Psych Reports anxiety and Reports depression Physical Exam Vital Signs: Last Vital Signs Pulse 83 05/10/23 12:53 BP 102/60 05/10/23 12:53 Pulse Ox 98 05/10/23 12:53 Oxygen Delivery Method Room Air 05/10/23 12:53 BMI result Body Mass Index 28.3 Const General: alert Neck Neck: Yes normal visual inspection, Yes full ROM and Yes no lymphadenopathy Chest Chest palpation & inspection: normal inspection of the chest Resp Auscultation: no crackles, no rales and diminished lung sounds Cardio Rate: regular rate Rhythm: regular rhythm Heart sounds: S1 normal heart sound present and S2 normal heart sound present GI Palpation (GI): Soft to palpation and nontender Auscultation: normal bowel sounds General: Yes CVA tenderness Back/Spine/Pelvis Back: CVA tenderness Skin General skin exam: rashes and/or lesions noted Extrem General: No clubbing and No cyanosis Assessment & Plan Assessment & Plan (1) Asthma: Code(s): J45.909 - Unspecified asthma, uncomplicated Qualifiers: Asthma severity: moderate Asthma persistence: persistent Asthma complication type: uncomplicated Qualified Code(s): J45.40 - Moderate persistent asthma, uncomplicated (2) BETHEL on CPAP: Code(s): G47.33 - Obstructive sleep apnea (adult) (pediatric); Z99.89 - Dependence on other enabling machines and devices (3) Chronic restrictive lung disease: Code(s): J98.4 - Other disorders of lung (4) Dyspnea: Comment: multifactorial. Has both obstructive and restrictive lung disease Code(s): R06.00 - Dyspnea, unspecified Qualifiers: Dyspnea type: dyspnea on exertion Qualified Code(s): R06.00 - Dyspnea, unspecified (5) Paralysis, diaphragm: Comment: secondary to his surgery Code(s): J98.6 - Disorders of diaphragm (6) Lymphadenopathy: Code(s): R59.1 - Generalized enlarged lymph nodes Plan continue plaquenil start short prednisone taper continue wmith APAP, his machine is older then 10 years, he needs a replecement APAP at this time continue Symbicort continue Singulair F/U with Rheumatology Bloodwork ?celiac disease F/U 3-4 months Orders: Orders Celiac Disease Panel 05/10/23 R07.9 - Chest pain, unspecified, R10.9 - Unspecified abdominal pain XR elbow RT 2V 05/10/23 XR elbow LT 2V 05/10/23 XR elbow LT 2V 05/10/23 R52 - Pain, unspecified XR elbow RT 2V 05/10/23 R52 - Pain, unspecified Medications: New prednisone Take 2 tabs by mouth daily x 5 days, then 1 tab daily x 5 days 18 days 63 tabs 0RF Refilled hydroxychloroquine 200 mg PO DAILY 30 tabs 11RF Coding Level of Care Code Est Pt Level 4 (39992) Diagnoses Moderate persistent asthma without complication J45.40 Asthma severity: moderate Asthma persistence: persistent Asthma complication type: uncomplicated BETHEL on CPAP G47.33; Z99.89 Chronic restrictive lung disease J98.4 Dyspnea on exertion R06.00 Dyspnea type: dyspnea on exertion Paralysis, diaphragm J98.6 Lymphadenopathy R59.1 Time Spent (min) 17
== END 2023-05-10 13:24 | disposition home or self-care (01) ==
PROVIDERS: Visit Provider Hospitalist
DX: J45.40 Moderate persistent asthma, uncomplicated (principal); G47.33 Obstructive sleep apnea (adult) (pediatric); Z99.89 Dependence on other enabling machines and devices; J98.4 Other disorders of lung; R06.00 Dyspnea, unspecified; J98.6 Disorders of diaphragm; R59.1 Generalized enlarged lymph nodes
CPT/HCPCS: 99214

== ENCOUNTER 2023-05-16 11:11 | Outpatient (REF) | payer OTHER, SELFPAY ==
--- NOTE | ~2023-05-16 | XR_ITS ---
EXAMINATION: XR BILATERAL ELBOWS CLINICAL INFORMATION: Bilateral elbow pain, no injury. COMPARISON: None available. TECHNIQUE: 3 views of each elbow. FINDINGS: Right Elbow: No significant joint effusion. Prominent dorsal olecranon spur. Alignment preserved. Hypertrophic change along the lateral epicondyle. Left Elbow: No significant joint effusion. Prominent dorsal olecranon spur with focal overlying soft tissue prominence/thickening. Alignment is preserved. Faint ossific/calcific focus along the lateral epicondyle. XR/XR elbow LT 2V IMPRESSION: 1. Prominent dorsal olecranon spurs bilaterally. 2. Hypertrophic change along the lateral epicondyles bilaterally. 3. Faint ossific/calcific focus along the lateral epicondyles. 4. Recommend follow-up imaging in 10-14 days if fracture is suspected.
--- NOTE | ~2023-05-16 | XR_ITS ---
EXAMINATION: XR BILATERAL ELBOWS CLINICAL INFORMATION: Bilateral elbow pain, no injury. COMPARISON: None available. TECHNIQUE: 3 views of each elbow. FINDINGS: Right Elbow: No significant joint effusion. Prominent dorsal olecranon spur. Alignment preserved. Hypertrophic change along the lateral epicondyle. Left Elbow: No significant joint effusion. Prominent dorsal olecranon spur with focal overlying soft tissue prominence/thickening. Alignment is preserved. Faint ossific/calcific focus along the lateral epicondyle. XR/XR elbow RT 2V IMPRESSION: 1. Prominent dorsal olecranon spurs bilaterally. 2. Hypertrophic change along the lateral epicondyles bilaterally. 3. Faint ossific/calcific focus along the lateral epicondyles. 4. Recommend follow-up imaging in 10-14 days if fracture is suspected.
== END 2023-05-16 11:12 | disposition home or self-care (01) ==
LOC: HO.XRAY 11:11
PROVIDERS: Visit Provider Hospitalist
DX: M25.521 Pain in right elbow (principal); M25.522 Pain in left elbow
CPT/HCPCS: 73070

== ENCOUNTER 2023-09-06 12:43 | Outpatient (AMB) | payer OTHER, SELFPAY ==
[2023-09-06 12:59] VITALS: PULSE 71; O2SAT 99; BMI 28.3
--- NOTE | 2023-09-06 12:59 | A.OFFVIS_ITS ---
Vital Signs 09/06/23 12:59 Height 5 ft 3 in Weight 160 lb BMI 28.3 Pulse 71 Pulse Source Pulse Oximeter Pulse Oximetry (%) 99 Oxygen Delivery Method Room Air Intake Visit Reasons: Asthma Clinical Rehabilitation Coordinator Required: No Allergies No Known Allergies Allergy (Verified 09/06/23 13:00) HPI Comments Details: The patient is 48 y/o man with a history of asthma in addition to obstructive sleep apnea. We did switch his mask the last visit and is tolerating it much better. He is also getting supplies regularly now. The CPAP therapy continues to be affecting beneficial. He is using more than 4 hours a night. His asthma appears to be in better control. He continues to use his respiratory regimen including his allergy medicine. He is not using the short-acting beta agonist more than twice a week. He has been complaining of other issues including arthralgias and what appears to be neuropathic pain. He is having hard time sleeping with it. Therefore affecting his daytime drowsiness. He does have a prescription of gabapentin but he is not using it at this time as prescribed. I requested that I can at least use it at nighttime to can help him sleep in also helping with the pain. 12/29/2021 the patient is here for a pulmonary follow-up visit. Breathing has been stable with his current respiratory therapy. The CPAP therapy has been affecting beneficial. He continues using more than 4 hours a night. He has been getting supplies readily available. He still dealing with significant back pain. He had an appoint with pain management but because a history of cancer does felt that he needs to follow up closely with Oncology in case this is metastatic disease. The patient needs to follow-up with oncology. He was going to [facility] for his oncological care. He will Call for an appointment. In the meantime he is having hard time sleeping far because of the back pain and also because insomnia. Therefore will go ahead and increase his gabapentin to a more effective dose at nighttime. He is currently looking for a PCP and also needs a Neurologist. 04/03/2022 the patient is here for a pulmonary follow-up visit. The patient has multiple complaints. A lot of them are not pulmonary. He still struggling to find a primary care doctor. The patient continues with respiratory therapy. In addition to that he continues uses CPAP every night. The CPAP therapy continues to be affecting beneficial. He does use CPAP for more than 4 hours a night. He has been complaining of joint pains. He did see the neurologist and he may have a component of carpal tunnel. The patient also had elevations in his BRIAN titers and also positive double-stranded DNA titers. He does have chest discomfort at times. Denies any rashes. In order to treat his she pleuritic discomfort and arthritis are go ahead and place him on Plaquenil. The patient will benefit from a rheumatological evaluation. Meantime she will continue with current respiratory regimen. 06/29/2022 the patient is here for a pulmonary follow-up visit. The patient is doing well from a respiratory status. He is using CPAP every night. He does use it every night for more than 4 hours a night. He does get a lot of benefit from the CPAP. He did get a call from a [employer] recently about his CPAP. He is concerned that the going to take away his CPAP. His CPAP appears to be very old he has at rest med S9 which is more than 10 years old. Still appears to be effective any did recently get supplies for. Although at some point may stop working. He may need to get a replacement. He will bring in the CPAP to the next visit so we can evaluated and see if he needs to get a new 1 order then. He continues uses respiratory therapy with good effect. Still dealing with significant other elements as far as neurological musculoskeletal. He did follow-up with Neurology who will refer him to a hand surgeon and also will be seen Rheumatology soon. 01/02/2023 the patient is here for a pulmonary follow-up visit. From a respiratory status the patient developed a cough in respiratory illness. Clinically he is feeling better although he feels like he needs inhaler. He has had inhalers in the past. Will go ahead and send him Symbicort that he can actually use as needed. He knows to rinse his mouth after he uses it. The patient also has been using the CPAP. He did bring it in he has an old rest med S9 machine that is likely more than 10 years old. The APAP set up 10-12 cm of water. His AHI is down to 0.8 events per hour. This is all very reassuring. He does use it for more than 4 hours a night typically the whole night. The therapy has been very effective beneficial specially with paralyzed diaphragm. The patient does need a replacement machine since her machine is now older than 10 years. Will go ahead and request a replacement machine from his DME company, [employer]. In addition to this he still dealing with significant aches. He did have carpal tunnel surgery in now complaining of a tendinitis of the elbow which is very uncomfortable. The patient is also having some pleuritic discomfort so the chest area. He did have undergo a chest x-ray recently and I did reviewed. Appears that he does have a loose sternal wire from the open heart surgery that he had as a young adult. 05/10/2023 the patient is here for a pulmonary follow-up visit. The patient overall continues have multiple complaints. Breathing though he has been doing well. Continues in his respiratory inhalers with good effect. Also the CPAP therapy has been affecting beneficial. He does use it for more than 4 hours a night. His adherence is 100%. He can not be without it. The patient needs to be able to get supplies from his DME company. I will make sure to do that. Although at this point the machine that he has been using his older than 10 years. We had requested a replacement machine but for some reason he did not get 1. I do believe that for better response to therapy a new machine will be able to be monitor closely and adjusted accordingly. Will go ahead and request the replacement machine at this time from his DME company. Also having issues significant pain. He was evaluated from a rheumatological standpoint. Significant small joint discomfort. Both the risk and also the elbows. The patient has been on the Plaquenil that initially he stopped but then he is going to restart. He was concerned about some of the side effects. In addition to that I give him a short course of prednisone to try to help him with that. He is also having abdominal discomfort. Did have a previous endoscopic biopsy demonstrating the possibility of celiac disease. Therefore, will go ahead and give her some prednisone and also requesting blood work to assess further diagnosis of potential celiac with his underlying diabetes. The patient may benefit from a referral to a dieitian if that i the case. 09/06/2023 the patient is here for pulmonary follow-up visit. The patient overall has been doing fairly well from a respiratory status. He continues to use his respiratory therapy as prescribed. Has not had to use any prednisone or rescue therapy. He continues to also use CPAP at nighttime. CPAP therapy continues to be affecting beneficial. He does uses CPAP more than 4 hours A night. He really can not sleep without the CPAP because of his diaphragmatic injury. However, he has been complaining of worsening cough. Nonproductive in nature. Moderate severity. Affecting sleep. The patient is taking small dose of RON inhibitor. He is going to go ahead and start that to see there is any improvement. Will monitor closely his blood pressure. In addition to that the benzo night may be helpful just subsiding the cough sensation. If he has no better he can call for further evaluation. 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 Gender identity: Male Review of Systems Const Denies difficulty sleeping, Denies snoring and Reports weakness ENT Reports no additional complaints and Reports neck pain Card Reports chest pain, Reports rapid heart rate and Reports dyspnea Resp Reports cough, Reports dyspnea and Denies snoring GI Reports abdominal pain Reports no additional complaints Musc Reports as per HPI, Reports back pain, Reports myalgias, Reports limited range of motion, Reports muscle weakness, Reports neck pain, Reports numbness and Reports radiating pain into limb Neuro Reports numbness and Reports weakness Psych Reports anxiety and Reports depression Physical Exam Vital Signs: Last Vital Signs Pulse 71 09/06/23 12:59 Pulse Ox 99 09/06/23 12:59 Oxygen Delivery Method Room Air 09/06/23 12:59 BMI result Body Mass Index 28.3 Const General: alert Neck Neck: Yes normal visual inspection, Yes full ROM and Yes no lymphadenopathy Chest Chest palpation & inspection: normal inspection of the chest Resp Auscultation: no crackles, no rales and diminished lung sounds Cardio Rate: regular rate Rhythm: regular rhythm Heart sounds: S1 normal heart sound present and S2 normal heart sound present GI Palpation (GI): Soft to palpation and nontender Auscultation: normal bowel sounds General: Yes CVA tenderness Back/Spine/Pelvis Back: CVA tenderness Skin General skin exam: rashes and/or lesions noted Extrem General: No clubbing and No cyanosis Assessment & Plan Assessment & Plan (1) Asthma: Code(s): J45.909 - Unspecified asthma, uncomplicated Category: Medical Qualifiers: Asthma complication type: uncomplicated Asthma persistence: persistent Asthma severity: moderate Qualified Code(s): J45.40 - Moderate persistent asthma, uncomplicated (2) BETHEL on CPAP: Code(s): G47.33 - Obstructive sleep apnea (adult) (pediatric); Z99.89 - Dependence on other enabling machines and devices Category: Medical (3) Chronic restrictive lung disease: Code(s): J98.4 - Other disorders of lung Category: Medical (4) Dyspnea: Comment: multifactorial. 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 Code(s): J98.6 - Disorders of diaphragm Category: Medical (6) Lymphadenopathy: Code(s): R59.1 - Generalized enlarged lymph nodes Category: Medical Plan continue wmith APAP, continue Symbicort continue Singulair F/U with Rheumatology stop RON due to cough, consider ARB as per PCP benzonates as needed F/U 4-6 months Medications: New benzonatate 200 mg PO BID 30 days PRN 30 caps 7RF cough benzonatate 200 mg PO BID PRN 30 caps 7RF cough 30 days Discontinued lisinopril Discontinued Reason: Doctor's Order 5 mg PO DAILY 30 days 30 tabs 4RF I10 - Essential (primary) hypertension Coding Level of Care Code Est Pt Level 4 (48702) Diagnoses Moderate persistent asthma without complication J45.40 Asthma complication type: uncomplicated Asthma persistence: persistent Asthma severity: moderate BETHEL on CPAP G47.33; Z99.89 Chronic restrictive lung disease J98.4 Dyspnea on exertion R06.00 Dyspnea type: dyspnea on exertion Paralysis, diaphragm J98.6 Lymphadenopathy R59.1 Time Spent (min) 16
== END 2023-09-06 13:16 | disposition home or self-care (01) ==
PROVIDERS: Visit Provider Hospitalist
DX: J45.40 Moderate persistent asthma, uncomplicated (principal); G47.33 Obstructive sleep apnea (adult) (pediatric); Z99.89 Dependence on other enabling machines and devices; J98.4 Other disorders of lung; R06.00 Dyspnea, unspecified; J98.6 Disorders of diaphragm; R59.1 Generalized enlarged lymph nodes
CPT/HCPCS: 99214

== ENCOUNTER → 2023-09-06 12:43 | Outpatient (BNVA) | payer OTHER, SELFPAY | PROVIDERS: Visit Provider Hospitalist | DX: J45.40 Moderate persistent asthma, uncomplicated (principal); J98.4 Other disorders of lung; R06.00 Dyspnea, unspecified; J98.6 Disorders of diaphragm; R59.1 Generalized enlarged lymph nodes; G47.33 Obstructive sleep apnea (adult) (pediatric); Z79.899 Other long term (current) drug therapy; Z99.89 Dependence on other enabling machines and devices | CPT/HCPCS: 99212 ==

== ENCOUNTER 2023-10-16 11:16 | Outpatient (REF) | payer OTHER, SELFPAY ==
[2023-10-16 12:14] LABS: MANUAL DIFF FLAG NO
[2023-10-16 12:16] LABS: Basophils Percent Auto 0.6 % (0-2); Eosinophils Absolute Auto 0.2 X10*3/uL (0.0-0.4); Eosinophils Percent Auto 3.9 % (0-4); Hematocrit 39.7 % (42.0-52.0); Hemoglobin 13.1 g/dl (14.0-18.0); Imm Gran Abs Auto 0.03 X10*3/uL (0.00-0.03); Imm Gran Pct Auto 0.6 % (0.0-0.4); Lymphocytes Absolute Auto 1.5 X10*3/uL (1.2-4.9); Lymphocytes Percent Auto 31.8 % (20-40); Mean Corpuscular Hemoglobin 28.7 pg (27.0-33.0); Mean Corpuscular Volume 86.9 fL (80.0-98.0); Mean Platelet Volume 11.6 fL (9.4-12.4); Monocytes Absolute Auto 0.2 X10*3/uL (0.1-1.2); Monocytes Percent Auto 4.5 % (2-11); Neutrophils Absolute Auto 2.7 x10*3/uL (2.0-8.3); Neutrophils Percent Auto 58.6 % (45-73); Platelet Count 192 X10*3/uL (160-400); Red Blood Count 4.57 X10*6/uL (4.60-5.80); Red Cell Distribution Width 12.4 % (11.0-16.0); White Blood Count 4.7 X10*3/uL (4.8-10.8)
[2023-10-16 12:53] LABS: Appearance Urine Clear; Color Urine Yellow; Glucose Urine UA 500 mg/dL (Negative); Leukocyte Esterase Urine Negative (Negative); Nitrite Urine Negative (Negative); PH 6.5 (5.0-9.0); Urine Blood Negative (Negative); Urine Ketones Trace mg/dL (Negative); Urine Protein Negative (Neg-Trace)
[2023-10-16 12:53] LABS: Erythrocyte Sedimentation Rate 14 MM/HR (0-15)
[2023-10-16 12:56] LABS: Bacteria Urine None Seen (None Seen); Hyaline Casts Urine 0-2 /LPF (0-2); RBC Urine 0-2 /HPF (0-2); Squamous Epithelial Cell Urine 0-2 /HPF (0-2); WBC Urine 0-5 /HPF (0-5)
[2023-10-16 13:30] LABS: Alanine Aminotransferase 32 U/L (0-40); Albumin Level 4.7 g/dL (3.5-5.0); Alkaline Phosphatase 83 U/L (39-117); Anion Gap 15 (12-20); Aspartate Amino Transferase 22 U/L (5-37); Bilirubin Total 0.3 mg/dL (0.0-1.0); Blood Urea Nitrogen 8 mg/dL (9-16); C Reactive Protein 0.16 mg/dL (< or = 0.50); Carbon Dioxide 25 mmol/L (22-29); Chloride 105 mmol/L (96-108); Estimated Glomerular Filt Rate > 60; Glucose Random 192 mg/dL (60-115); Potassium 3.7 mmol/L (3.3-5.1); Sodium 141 mmol/L (135-145); Total Protein 7.9 g/dL (6.5-8.0)
[2023-10-16 14:18] LABS: Creatinine Urine 116.15 mg/dL; Protein/Creatinine Ratio, Ur 0.07 (<0.2); Total Protein Urine Random 8 mg/dL (<12)
[2023-10-17 10:18] LABS: Complement C3 154 mg/dL (82-185)
[2023-10-17 14:29] LABS: Transglutaminase IgA <1.0 U/mL
[2023-10-17 20:09] LABS: Anti DNA DS Antibody 18 IU/mL
[2023-10-17 23:04] LABS: Prot Elec - Albumin 4.6 g/dL (3.8-4.8); Prot Elec - Alpha1 0.3 g/dL (0.2-0.3); Prot Elec - Alpha2 0.7 g/dL (0.5-0.9); Prot Elec - Beta 1 0.5 g/dL (0.4-0.6); Prot Elec - Beta 2 0.5 g/dL (0.2-0.5); Prot Elec - Gamma 1.1 g/dL (0.8-1.7); Prot Elec - Total Protein 7.7 g/dL (6.1-8.1)
[2023-10-18 11:39] LABS: IgA 413 mg/dL (47-310); IgG 1229 mg/dL (600-1640); IgM 66 mg/dL (50-300)
[2023-10-22 14:38] LABS: Immunoglobulin G Subclass 1 661 mg/dL (382-929); Immunoglobulin G Subclass 2 323 mg/dL (241-700); Immunoglobulin G Subclass 3 52 mg/dL (22-178); Immunoglobulin G Subclass 4 101.6 mg/dL (4-86); Immunoglobulin G Total 1182 mg/dL (600-1640)
[2023-10-24 15:58] LABS: DNAds, Crithidia Antibody Negative (Negative)
== END 2023-10-16 11:17 | disposition home or self-care (01) ==
LOC: HO.LAB 11:16
PROVIDERS: PCP Internal Medicine; Visit Provider Student in an Organized Health Care Education/Training Program
DX: M32.9 Systemic lupus erythematosus, unspecified (principal); D89.84 IgG4-related disease; K90.0 Celiac disease
CPT/HCPCS: 36415; 80053; 81001; 82570; 82784; 84156; 84165; 85025; 85652; 86140; 86160; 86225; 86255; 86334; 86364

== ENCOUNTER 2023-10-28 09:18 | Outpatient (AMB) | payer OTHER, SELFPAY ==
--- NOTE | 2023-10-28 09:23 | MHC.OFFVIS ---
Vital Signs 10/28/23 09:24 Height 5 ft 3 in Weight 159 lb 6.307 oz BMI 28.2 BP 110/70 Blood Pressure Location Lt brachial Position Sitting Pulse 77 Pulse Source Pulse Oximeter Pulse Oximetry (%) 99 Oxygen Delivery Method Room Air Intake Visit Reasons: ++DsDNA/CM Intake Note: Patient is here for follow up on blood work ++DsDNA/CM. Patient states he's been feeling less pain in his bones. He states since he has been lifting weights. Patient is concerned of rash over various parts of his body. Allergies No Known Allergies Allergy (Verified 09/06/23 13:00) Medication List - Last Reconciled 10/28/23 by Sulma Latham MD benzonatate 200 mg PO BID PRN 30 days blood sugar diagnostic (FreeStyle Lite Strips) 2 times a day budesonide-formoterol 160-4.5 mcg/actuation (Symbicort) 2 puffs inhalation BID 30 days clonazepam 1 mg PO QAM CPAP (CPAP Machine/Device) As directed cyanocobalamin (vitamin B-12) 500 mcg sublingual DAILY 30 days diclofenac sodium 1% (Voltaren Arthritis Pain) 2 grams topical QID 30 days dulaglutide (Trulicity) 1.5 mg (0.5 mL) subcut QWEEK ezetimibe 10 mg PO DAILY 30 days ferrous sulfate 325 mg PO DAILY fluticasone furoate-vilanterol 100-25 mcg/dose (Breo Ellipta) 1 ea PO DAILY gabapentin Take 1 capsule in AM, 1 capsule at noon, 2 capsules at bedtime; 30 days gemfibrozil 600 mg PO BID hydroxychloroquine 200 mg PO DAILY lancets (FreeStyle Lancets) Twice a day loratadine 10 mg PO DAILY metformin 500 mg PO DAILY montelukast 10 mg PO BEDTIME omega-3 fatty acids 1,000 mg PO BID 30 days paroxetine HCl 30 mg PO DAILY rosuvastatin 20 mg PO DAILY 90 days trazodone 50 mg PO BEDTIME PRN HPI Comments Details: Patient returns for follow-up. States that denies to have diffuse pain. States that the pain is in his bones and in the articulation areas he is prescribed hydroxychloroquine by Pulmonary but he does not take it consistently. He denies any fevers or weight loss. Initial history: This is a 47-year-old male with complex past medical history including testicular cancer s/p surgery and chemotherapy. He also has history of BETHEL and asthma. He is referred for diffuse joint pain as well as a positive BRIAN. Patient stated that he was diagnosed with testicular cancer many years ago s/p surgical treatment and chemotherapy. He stated that chemotherapy had to be stopped due to significant anemia and he had to get blood transfusions. He stated that after he got his treatment he was told that his cancer can come back. He has not been evaluated by an oncologist in over 5 years. Patient has diffuse pain everywhere. He was prescribed hydroxychloroquine 200 mg daily as a therapeutic trial by Dr. Win. He was also started on prednisone by Dr. Win. Patient cannot tell whether there is an improvement with prednisone or hydroxychloroquine. He is unaware of any family history of autoimmune rheumatic disease. Over the last 2-3 years he has developed progressively spreading lymphadenopathy of his neck, axilla and groin. [facility] Medical History Abdominal pain Breast cancer in male Sarcoidosis Lupus (systemic lupus erythematosus) Testicular cancer Carpal tunnel syndrome on both sides BRIAN positive Abnormal chest x-ray Insomnia [id number] syndrome Lymphadenopathy Leg weakness Chronic restrictive lung disease Dyspnea Paralysis, diaphragm BETHEL on CPAP Asthma B12 deficiency Diabetic neuropathy associated with type 2 diabetes mellitus Overweight (BMI 25.0-29.9) Vitamin D deficiency Hypertension Dyslipidemia Diabetes type 2, controlled Surgical History S/P carpal tunnel release Hx of nephrolithotomy with removal of calculi History of lung surgery Family History Father Diabetes Heart disease Hypertension Brother Diabetes Arthritis Mother Diabetes Arthritis Obesity Brother No problems noted. 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 Gender identity: Male Review of Systems Const Reports fatigue and Reports weakness Musc Reports arthralgias Neuro Reports weakness Psych Reports anxiety and Reports depression Endo Reports fatigue Physical Exam Vital Signs: Last Vital Signs Pulse 77 10/28/23 09:24 BP 110/70 10/28/23 09:24 Pulse Ox 99 10/28/23 09:24 Oxygen Delivery Method Room Air 10/28/23 09:24 BMI result Body Mass Index 28.2 Const General: cooperative, healthy appearing and comfortable Nutritional Appearance: overweight Orientation/consciousness: patient oriented x3 Limitations: no limitations HEENT Head: Yes normocephalic and Yes atraumatic Mouth: moist mucous membranes Resp Effort & Inspection: normal respiratory effort and able to speak in complete sentences Auscultation: clear to auscultation bilaterally Cardio Rate: regular rate Rhythm: regular rhythm Heart sounds: S1 normal heart sound present and S2 normal heart sound present Neuro General: patient oriented x3 Extrem Other: Diffuse fibromyalgia tender points Multiple Heberden's nodes , mildly tender Results Reviewed Results Reviewed: Left inguinal lymph node excisional biopsy: Reactive lymph node with follicular and paracortical hyperplasia, progressive transformation of germinal centers and increase IgG4 polyclonal plasma cells.? No evidence of lymphoma.? See comment Comment:? The morphologic and immunophenotypic findings are of a reactive lymph node with progressive transformation of germinal centers and increased IgG4 plasma cells which raise a differential diagnosis that includes: 1-IgG4 related disease 2 reactive lymphadenopathy with increased IgG4 plasma cells occurring in patients with hyper interleukin 6 syndromes (rheumatoid arthritis and other immune mediated diseases.? Because of histologic overlap, the differential diagnosis between IgG4 related disease and hyper interleukin 6 syndrome requires correlation with serum levels of IgG, IgA, IgM and C-reactive protein Flow cytometry studies performed on cell suspension of this lymph node are consistent with non neoplastic T and B-cell populations Microscopic:? In most areas there are >30 IgG4+ plasma cells/high-power field.? Also the IgG4+/IgG plasma cell ratio is > 40% Surgical pathology in 06/2011 A splenic flexure polyp:? Consistent with an inflammatory polyp? B small bowel biopsy:? Duodenal mucosa with preserved villi and increased intraepithelial lymphocytes Note C3 antibody demonstrate increased intraepithelial T lymphocytes suggesting celiac sprue.? Serologic correlation is warranted C gastric antrum biopsy:? Gastric antrum/body mucosa with mild reactive changes.? No H pylori bacteria identified by immunohistochemistry Liver core biopsy 10/2004 Final diagnosis Steatohepatitis with mild necroinflammatory activity and minimal periportal fibrosis grade 1,? stage 0-1 Note: The biopsy demonstrate severe mixed micro and macrovesicular steatosis associated with a mild portal and scattered lobular lymphoplasmacytic infiltrate.? Scattered lipogranulomatous are present.? Portal tracts are focally enlarged with minimal periportal fibrosis.? Liver architecture is maintained.? No high LN is identified.? The differential diagnosis includes alcohol, drugs, obesity, hyperlipidemia, diabetes mellitus and other toxic and metabolic conditions.? Clinical correlation is necessary. Results of special stain: Trichrome stain:? Demonstrates mild portal fibrosis.?? Reticulin stain:? Highlights patchy regeneration and irregularity of hepatocyte plates Iron stain:? Negative for hemosiderin deposition PAS/Diastase stain:? Highlights scattered pigment-laden macrophages Assessment & Plan Assessment & Plan (1) BRIAN positive: Code(s): R76.8 - Other specified abnormal immunological findings in serum Category: Medical Plan: This is a 48-year-old male with past medical history of testicular cancer s/p surgery and chemotherapy presents for evaluation of diffuse pain, positive BRIAN, positive dsDNA. Continues to feel about the same. With widespread pains and random tingling and numbness of his skin. Per patient he continues to get intermittent lymphadenopathy. Patient takes patient takes hydroxychloroquine 200 mg daily, does not take it consistently as he believes it causes mood changes and interacts with multiple meds I do not see any signs of active SLE that require treatment at this point. Patient has no cytopenias, no nephritis or proteinuria, there is no inflammatory arthritis or mucocutaneous lesions. Symptoms are consistent with fibromyalgia. I discussed nature of fibromyalgia with patient. Advised patient to try to incorporate light activity. Try to work on his sleep. He already has a psychiatrist and a psychologist. He is on gabapentin, Klonopin, trazodone, paroxetine Labs before next visit in 1 year Plan I spent 17 minutes reviewing patient's chart, outside charts, evaluating patient, ordering diagnostic workup counseling patient and documenting in the chart Orders: Orders Complement C3 1 Year M32.9 - Systemic lupus erythematosus, unspecified Complement C4 1 Year M32.9 - Systemic lupus erythematosus, unspecified Erythrocyte Sedimentation Rate 1 Year M32.9 - Systemic lupus erythematosus, unspecified Protein Creatinine Ratio, Ur 1 Year M32.9 - Systemic lupus erythematosus, unspecified UA w Microscopic 1 Year M32.9 - Systemic lupus erythematosus, unspecified Anti DNA DS Antibody 1 Year M32.9 - Systemic lupus erythematosus, unspecified C Reactive Protein 1 Year M32.9 - Systemic lupus erythematosus, unspecified Complete Blood Count Auto Diff 1 Year M32.9 - Systemic lupus erythematosus, unspecified Comprehensive Met. Panel 1 Year M32.9 - Systemic lupus erythematosus, unspecified Coding Level of Care Code Est Pt Level 3 (27047) Diagnoses BRIAN positive R76.8
[2023-10-28 09:24] VITALS: BP 110/70; PULSE 77; O2SAT 99; BMI 28.2
== END 2023-10-28 09:55 | disposition home or self-care (01) ==
PROVIDERS: PCP Internal Medicine; Visit Provider Student in an Organized Health Care Education/Training Program
DX: R76.8 Other specified abnormal immunological findings in serum (principal)
CPT/HCPCS: 99213

== ENCOUNTER → 2023-10-28 09:18 | Outpatient (BNVA) | payer OTHER, SELFPAY | PROVIDERS: PCP Internal Medicine; Visit Provider Student in an Organized Health Care Education/Training Program | DX: M32.9 Systemic lupus erythematosus, unspecified (principal); R76.8 Other specified abnormal immunological findings in serum | CPT/HCPCS: 99212 ==

== ENCOUNTER 2023-12-04 12:03 | Outpatient (REF) | payer OTHER, SELFPAY ==
--- NOTE | ~2023-12-04 | US_ITS ---
EXAMINATION: US RETROPERITONEAL LIMITED (RENAL ONLY) CLINICAL INFORMATION: Left renal mass seen on CT. COMPARISON: CT chest without contrast 02/07/2023. TECHNIQUE: Real-time imaging of the kidneys. FINDINGS: RIGHT KIDNEY: 9.8 x 4.7 x 4.8 cm (SAG x AP x TRV). The kidney is normal in size, contour, and echogenicity. Renal cortical thickness is normal. There is a lower pole 4 mm as well as 5 mm echogenic focus seen consistent with nonobstructing calculi. No hydronephrosis. A benign mid renal 0.7 cm Bosniak class I renal cyst is noted which requires no additional imaging or follow up. No solid renal masses are seen. LEFT KIDNEY: 9.6 x 6.2 x 4.0 cm (SAG x AP x TRV). The kidney is normal in size, contour, and echogenicity. Renal cortical thickness is normal. There is a lower pole 3 mm echogenic focus with twinkle artifact consistent with a nonobstructing calculus. No hydronephrosis. A benign 0.5 cm Bosniak class II renal cyst is noted with some posterior calcium which requires no additional imaging or follow up. No solid renal masses are seen. There is a prominent dromedary hump. US/US renal BI IMPRESSION: 1. Bilateral nonobstructing renal calculi. 2. Benign Bosniak class I and II renal cysts which require no additional imaging or follow up. 3. No solid renal mass is seen. Electronically signed by: Joel Juarez MD 12/18/2023 12:46 AM EDT
== END 2023-12-04 12:04 | disposition home or self-care (01) ==
LOC: HO.US 12:03
PROVIDERS: PCP Internal Medicine; Visit Provider Internal Medicine Medical Oncology
DX: N28.89 Other specified disorders of kidney and ureter (principal)
CPT/HCPCS: 76775

== ENCOUNTER 2024-01-07 10:30 | Outpatient (AMB) | payer OTHER, SELFPAY ==
--- NOTE | 2024-01-07 10:35 | MHC.OFFVIS ---
Vital Signs 01/07/24 10:37 Height 5 ft 3 in Weight 156 lb 8.451 oz BMI 27.7 BP 128/70 Blood Pressure Location Lt brachial Position Sitting Pulse 74 Pulse Source Pulse Oximeter Pulse Oximetry (%) 100 Oxygen Delivery Method Room Air Intake Visit Reasons: Asthma Dietitian Helper Required: No Allergies No Known Allergies Allergy (Verified 01/07/24 10:36) HPI Comments Details: The patient is 48 y/o man with a history of asthma in addition to obstructive sleep apnea. We did switch his mask the last visit and is tolerating it much better. He is also getting supplies regularly now. The CPAP therapy continues to be affecting beneficial. He is using more than 4 hours a night. His asthma appears to be in better control. He continues to use his respiratory regimen including his allergy medicine. He is not using the short-acting beta agonist more than twice a week. He has been complaining of other issues including arthralgias and what appears to be neuropathic pain. He is having hard time sleeping with it. Therefore affecting his daytime drowsiness. He does have a prescription of gabapentin but he is not using it at this time as prescribed. I requested that I can at least use it at nighttime to can help him sleep in also helping with the pain. 12/29/2021 the patient is here for a pulmonary follow-up visit. Breathing has been stable with his current respiratory therapy. The CPAP therapy has been affecting beneficial. He continues using more than 4 hours a night. He has been getting supplies readily available. He still dealing with significant back pain. He had an appoint with pain management but because a history of cancer does felt that he needs to follow up closely with Oncology in case this is metastatic disease. The patient needs to follow-up with oncology. He was going to [facility] for his oncological care. He will Call for an appointment. In the meantime he is having hard time sleeping far because of the back pain and also because insomnia. Therefore will go ahead and increase his gabapentin to a more effective dose at nighttime. He is currently looking for a PCP and also needs a Neurologist. 04/03/2022 the patient is here for a pulmonary follow-up visit. The patient has multiple complaints. A lot of them are not pulmonary. He still struggling to find a primary care doctor. The patient continues with respiratory therapy. In addition to that he continues uses CPAP every night. The CPAP therapy continues to be affecting beneficial. He does use CPAP for more than 4 hours a night. He has been complaining of joint pains. He did see the neurologist and he may have a component of carpal tunnel. The patient also had elevations in his BRIAN titers and also positive double-stranded DNA titers. He does have chest discomfort at times. Denies any rashes. In order to treat his she pleuritic discomfort and arthritis are go ahead and place him on Plaquenil. The patient will benefit from a rheumatological evaluation. Meantime she will continue with current respiratory regimen. 06/29/2022 the patient is here for a pulmonary follow-up visit. The patient is doing well from a respiratory status. He is using CPAP every night. He does use it every night for more than 4 hours a night. He does get a lot of benefit from the CPAP. He did get a call from a [employer] recently about his CPAP. He is concerned that the going to take away his CPAP. His CPAP appears to be very old he has at rest med S9 which is more than 10 years old. Still appears to be effective any did recently get supplies for. Although at some point may stop working. He may need to get a replacement. He will bring in the CPAP to the next visit so we can evaluated and see if he needs to get a new 1 order then. He continues uses respiratory therapy with good effect. Still dealing with significant other elements as far as neurological musculoskeletal. He did follow-up with Neurology who will refer him to a hand surgeon and also will be seen Rheumatology soon. 01/02/2023 the patient is here for a pulmonary follow-up visit. From a respiratory status the patient developed a cough in respiratory illness. Clinically he is feeling better although he feels like he needs inhaler. He has had inhalers in the past. Will go ahead and send him Symbicort that he can actually use as needed. He knows to rinse his mouth after he uses it. The patient also has been using the CPAP. He did bring it in he has an old rest med S9 machine that is likely more than 10 years old. The APAP set up 10-12 cm of water. His AHI is down to 0.8 events per hour. This is all very reassuring. He does use it for more than 4 hours a night typically the whole night. The therapy has been very effective beneficial specially with paralyzed diaphragm. The patient does need a replacement machine since her machine is now older than 10 years. Will go ahead and request a replacement machine from his DME company, [employer]. In addition to this he still dealing with significant aches. He did have carpal tunnel surgery in now complaining of a tendinitis of the elbow which is very uncomfortable. The patient is also having some pleuritic discomfort so the chest area. He did have undergo a chest x-ray recently and I did reviewed. Appears that he does have a loose sternal wire from the open heart surgery that he had as a young adult. 05/10/2023 the patient is here for a pulmonary follow-up visit. The patient overall continues have multiple complaints. Breathing though he has been doing well. Continues in his respiratory inhalers with good effect. Also the CPAP therapy has been affecting beneficial. He does use it for more than 4 hours a night. His adherence is 100%. He can not be without it. The patient needs to be able to get supplies from his DME company. I will make sure to do that. Although at this point the machine that he has been using his older than 10 years. We had requested a replacement machine but for some reason he did not get 1. I do believe that for better response to therapy a new machine will be able to be monitor closely and adjusted accordingly. Will go ahead and request the replacement machine at this time from his DME company. Also having issues significant pain. He was evaluated from a rheumatological standpoint. Significant small joint discomfort. Both the risk and also the elbows. The patient has been on the Plaquenil that initially he stopped but then he is going to restart. He was concerned about some of the side effects. In addition to that I give him a short course of prednisone to try to help him with that. He is also having abdominal discomfort. Did have a previous endoscopic biopsy demonstrating the possibility of celiac disease. Therefore, will go ahead and give her some prednisone and also requesting blood work to assess further diagnosis of potential celiac with his underlying diabetes. The patient may benefit from a referral to a dieitian if that i the case. 09/06/2023 the patient is here for pulmonary follow-up visit. The patient overall has been doing fairly well from a respiratory status. He continues to use his respiratory therapy as prescribed. Has not had to use any prednisone or rescue therapy. He continues to also use CPAP at nighttime. CPAP therapy continues to be affecting beneficial. He does uses CPAP more than 4 hours A night. He really can not sleep without the CPAP because of his diaphragmatic injury. However, he has been complaining of worsening cough. Nonproductive in nature. Moderate severity. Affecting sleep. The patient is taking small dose of RON inhibitor. He is going to go ahead and start that to see there is any improvement. Will monitor closely his blood pressure. In addition to that the benzo night may be helpful just subsiding the cough sensation. If he has no better he can call for further evaluation. 01/07/2024 the patient is here for pulmonary follow-up visit. Overall he is having multiple complaints. He is having significant back pains and difficulty sleeping. Breathing is always an issue with dyspnea on exertion. [id number] severity. He has been using the CPAP and CPAP continues to be very affecting beneficial for him. He does use it for more than 4 hours a night. He has been getting supplies from the [employer]. In addition to that he was given gabapentin for sleep. It will also help his back issues in therefore did encourage him to use it. I will recently to the pharmacy. In regards of his connective tissue disease is not clear if is manifesting although he does have an elevated double-stranded DNA. He was evaluated by Rheumatology. At this point will keeping the Plaquenil to see if this provides him help. He did have his eyes checked and will continue to have his eyes checked. In continue the low dose of 200 daily. He will continue with current respiratory therapy follow-up in 4 months. He will have a chest x-ray and lumbar x-rays today. 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 Gender identity: Male Review of Systems Const Denies difficulty sleeping, Denies snoring and Reports weakness ENT Reports no additional complaints and Reports neck pain Card Reports chest pain and Reports dyspnea Resp Reports cough, Reports dyspnea and Denies snoring GI Reports abdominal pain Reports no additional complaints Musc Reports as per HPI, Reports back pain, Reports myalgias, Reports limited range of motion, Reports muscle weakness, Reports neck pain, Reports numbness and Reports radiating pain into limb Neuro Reports numbness and Reports weakness Psych Reports anxiety and Reports depression Physical Exam Vital Signs: Last Vital Signs Pulse 74 01/07/24 10:37 BP 128/70 01/07/24 10:37 Pulse Ox 100 01/07/24 10:37 Oxygen Delivery Method Room Air 01/07/24 10:37 BMI result Body Mass Index 27.7 Const General: alert Neck Neck: Yes normal visual inspection, Yes full ROM and Yes no lymphadenopathy Chest Chest palpation & inspection: normal inspection of the chest Resp Auscultation: no crackles, no rales and diminished lung sounds Cardio Rate: regular rate Rhythm: regular rhythm Heart sounds: S1 normal heart sound present and S2 normal heart sound present GI Palpation (GI): Soft to palpation and nontender Auscultation: normal bowel sounds General: Yes CVA tenderness Back/Spine/Pelvis Back: CVA tenderness Skin General skin exam: rashes and/or lesions noted Extrem General: No clubbing and No cyanosis Assessment & Plan Assessment & Plan (1) Asthma: Code(s): J45.909 - Unspecified asthma, uncomplicated Category: Medical Qualifiers: Asthma complication type: uncomplicated Asthma persistence: persistent Asthma severity: moderate Qualified Code(s): J45.40 - Moderate persistent asthma, uncomplicated (2) BETHEL on CPAP: Code(s): G47.33 - Obstructive sleep apnea (adult) (pediatric); Z99.89 - Dependence on other enabling machines and devices Category: Medical (3) Chronic restrictive lung disease: Code(s): J98.4 - Other disorders of lung Category: Medical (4) Dyspnea: Comment: multifactorial. 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 Code(s): J98.6 - Disorders of diaphragm Category: Medical (6) Lymphadenopathy: Code(s): R59.1 - Generalized enlarged lymph nodes Category: Medical (7) Back pain: Code(s): M54.9 - Dorsalgia, unspecified Category: Medical Qualifiers: Back pain location: low back pain Back pain laterality: unspecified Sciatica presence: unspecified whether sciatica present Chronicity: unspecified Qualified Code(s): M54.50 - Low back pain, unspecified Plan continue wmith APAP, continue Symbicort continue Singulair continue plaquenil continue gabapentin stop RON due to cough, consider ARB as per PCP benzonates as needed Xrays F/U 4-6 months Orders: Orders XR lumbar spine 2-3V Today M54.9 - Dorsalgia, unspecified XR chest 2V Today M54.9 - Dorsalgia, unspecified Medications: Refilled hydroxychloroquine 200 mg PO DAILY 30 tabs 11RF gabapentin Take 1 capsule in AM, 1 capsule at noon, 2 capsules at bedtime; 120 caps 11RF 30 days Coding Level of Care Code Est Pt Level 4 (51435) Diagnoses Moderate persistent asthma without complication J45.40 Asthma complication type: uncomplicated Asthma persistence: persistent Asthma severity: moderate BETHEL on CPAP G47.33; Z99.89 Chronic restrictive lung disease J98.4 Dyspnea on exertion R06.00 Dyspnea type: dyspnea on exertion Paralysis, diaphragm J98.6 Lymphadenopathy R59.1 Low back pain, unspecified back pain laterality, unspecified chronicity, unspecified whether sciatica present M54.50 Back pain location: low back pain Back pain laterality: unspecified Sciatica presence: unspecified whether sciatica present Chronicity: unspecified Time Spent (min) 17
[2024-01-07 10:37] VITALS: BP 128/70; PULSE 74; O2SAT 100; BMI 27.7
== END 2024-01-07 10:55 | disposition home or self-care (01) ==
PROVIDERS: PCP Internal Medicine; Visit Provider Hospitalist
DX: J45.40 Moderate persistent asthma, uncomplicated (principal); G47.33 Obstructive sleep apnea (adult) (pediatric); Z99.89 Dependence on other enabling machines and devices; J98.4 Other disorders of lung; R06.00 Dyspnea, unspecified; J98.6 Disorders of diaphragm; R59.1 Generalized enlarged lymph nodes; M54.50 Low back pain, unspecified
CPT/HCPCS: 99214

== ENCOUNTER 2024-01-07 10:30 | Outpatient (REF) | payer OTHER, SELFPAY ==
--- NOTE | ~2024-01-07 | XR_ITS ---
EXAMINATION: XR CHEST 2 VIEWS CLINICAL INFORMATION: Dorsalgia, unspecified M54.9. COMPARISON: Prior imaging examinations including chest x-ray 01/07/[address] scan of the chest 02/07/2023 TECHNIQUE: 2 views of the chest were obtained. FINDINGS: Sternotomy wires noted. Elevation of left hemidiaphragm unchanged. Lungs otherwise clear. Cardiomediastinal silhouette normal. Osseous structures unremarkable XR/XR chest 2V IMPRESSION: 1. No acute disease. 2. Chronic elevation of left hemidiaphragm unchanged. Electronically signed by: Andrea Sierra MD 03/05/2024 11:47 AM EST
--- NOTE | ~2024-01-07 | XR_ITS ---
EXAMINATION: XR LUMBAR SPINE 3 VIEWS CLINICAL INFORMATION: Dorsalgia, unspecified M54.9. COMPARISON: None available TECHNIQUE: Three views of the lumbosacral spine. FINDINGS: The vertebral bodies and posterior elements are normal. The disc spaces are preserved and the vertebral alignment is normal. The paraspinal soft tissues are normal. XR/XR lumbar spine 2-3V IMPRESSION: Unremarkable examination. Electronically signed by: Celine Jhaveri MD 03/10/2024 08:15 AM DULCE MARIA
== END 2024-01-07 10:31 | disposition home or self-care (01) ==
LOC: HO.XRAY 10:30
PROVIDERS: PCP Internal Medicine; Visit Provider Hospitalist
DX: R07.9 Chest pain, unspecified (principal); R10.9 Unspecified abdominal pain; M54.9 Dorsalgia, unspecified; J45.40 Moderate persistent asthma, uncomplicated; G47.33 Obstructive sleep apnea (adult) (pediatric); Z99.89 Dependence on other enabling machines and devices; J98.4 Other disorders of lung; R06.00 Dyspnea, unspecified; J98.6 Disorders of diaphragm; R59.1 Generalized enlarged lymph nodes; M54.50 Low back pain, unspecified
CPT/HCPCS: 71046; 72100; 99212

== ENCOUNTER 2024-05-08 09:10 | Outpatient (REF) | payer OTHER, SELFPAY ==
--- NOTE | ~2024-05-08 | XR_ITS ---
CLINICAL HISTORY: R52 - Pain, unspecified 2 view chest x-ray Comparison: 01/07/2024, 05/26/2021 Findings: The lungs are clear. Heart size is normal. No acute fracture. IMPRESSION: 1. No acute findings. This document has been electronically signed by: Rob Sena MD on 05/09/2024 05:40:05
--- OUTSIDE RECORDS SUMMARY | 2024-05-08 11:20 | XMS_ITS | Clinical Summary ---
Author Organization 175 [facility] Address [address] [place] [address] Phone Care Team Providers Care Wire Tester Name Role Phone Myrna Clemens MD Primary Care Provider [phone] Allergies No known active allergies Medications albuterol [...] apnea 09/27/2016 Overview (01/21/2024): mild [facility] Home Sleep Apnea Test: Date 09/16/2018; Wt [...] EST - 03/25/2024 11:06 PM EST Emergency [facility] Emergency [address] [place] [address] Shortness of breath (Primary Dx); Pneumonia due to respiratory syncytial virus (RSV) Discharge Disposition: Home or Self Care 03/02/2024 2:15 PM EST Office Visit Internal Medicine - [place] 175 [facility] [address] [place] [address] Farnaz Shipley NP Type 2 diabetes mellitus without complication, unspecified whether detention insulin use ([facility]) (Primary Dx); Hypertriglyceridemia; Hypertension, unspecified type; Asthma with COPD ([facility]); H/O testicular cancer; Fibromyalgia; Intertrigo from Last [...] Mediastinal malignancy excision OTHER SURGICAL HISTORY PROCEDURE: [place] UNLISTED PROCEDURE DIAPHRAGM Medical History Medical History Date Comments Depression 01/23/2017 DX:Depression History of testicular cancer 01/23/2017 DX: History of testicular cancer Asthma 05/11/2016 DX:Asthma Avascular necrosis of bone o f hip ([facility]) 06/07/2016 DX:Avascular necrosis of bon e of hip ([facility]) 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 Diverticulosis of intestine 05/11/2016 DX:D iverticulosis of intestine History of renal calculi 12/30/2015 DX:Hist ory of renal calculi Hypertension 12/11/2016 DX:Hypertension Hypertriglyceridemia 12/11/2016 DX:Hypertri glyceridemia Obstructive sleep apnea syndrome 09/27/2016 DX:Obstructive sleep apnea syndrome Type 2 diabetes mellitus wit hout complication ([facility]) 09/27/2016 DX:Type 2 diabetes mellitus without complication ([facility]) History of malignant neoplas m of mediastinum [...] 05/12/2024 1:15 PM EST Office Visit Endocrinology [address] [address] Payton Win PA [address] [place] [address] 09/02/2024 2:15 PM EDT Office Visit Internal Medicine [facility] [address] [phone] Farnaz Shipley NP [address] [address] Health Maintenance Due Date Last Done Comments [...] Espino MD on 03/25/2024 22:05:59 Jason LUCERO [facility] PROCEDURES Final Result * (ABNORMAL) Respiratory virus panel molecular study (03/25/2024 8:35 PM EST) Adenovirus Detection by PCR Not Detected Not Detected LAB MICROBIOLOGY METHOD 03/25/2024 9:40 PM EST [facility] Influenza A PCR Not Detected Not Detected LAB MICROBIOLOGY METHOD 03/25/2024 9:40 PM EST [facility] Influenza B PCR Not Detected Not Detected LAB MICROBIOLOGY METHOD 03/25/2024 9:40 PM EST [facility] Coronavirus 229E Not Detected Not Detected LAB MICROBIOLOGY METHOD 03/25/2024 9:40 PM [facility] Coronavirus HKU1 Not Detected Not Detected LAB MICROBIOLOGY METHOD 03/25/2024 9:40 PM [facility] Coronavirus OC43 Not Detected Not Detected LAB MICROBIOLOGY METHOD 03/25/2024 9:40 PM [facility] Coronavirus NL63 Not Detected Not Detected LAB MICROBIOLOGY METHOD 03/25/2024 9:40 PM EST [facility] Parainfluenza Virus 1 Not Detected Not Detected LAB MICROBIOLOGY METHOD 03/25/2024 9:40 PM [facility] Parainfluenza Virus 2 Not Detected Not Detected LAB MICROBIOLOGY METHOD 03/25/2024 9:40 PM [facility] Parainfluenza Virus 3 Not Detected Not Detected LAB MICROBIOLOGY METHOD 03/25/2024 9:40 PM [facility] Parainfluenza Virus 4 Not Detected Not Detected LAB MICROBIOLOGY METHOD 03/25/2024 9:40 PM EST [facility] RSV PCR Detected(A ) Not Detected LAB MICROBIOLOGY METHOD 03/25/2024 9:40 PM EST [facility] Human Metapneumovirus A and B Not Detected Not Detected LAB MICROBIOLOGY METHOD 03/25/2024 9:40 PM EST [facility] Rhinovirus/Entero virus Not Detected Not Detected LAB MICROBIOLOGY METHOD 03/25/2024 9:40 PM EST [facility] Bordetella pertussis Not Detected Not Detected LAB MICROBIOLOGY METHOD 03/25/2024 9:40 PM EST [facility] Bordetella parapertussis Not Detected Not Detected LAB MICROBIOLOGY METHOD 03/25/2024 9:40 PM EST [facility] Mycoplasma pneumo by PCR Not Detected Not Detected LAB MICROBIOLOGY METHOD 03/25/2024 9:40 PM [facility] Chlamydia pneumoniae Not Detected Not Detected LAB MICROBIOLOGY METHOD 03/25/2024 9:40 PM [facility] SARS COV-2 Not Detected Not Detected LAB MICROBIOLOGY METHOD 03/25/2024 9:40 PM [facility] Swab Both anterior nares / Unknown Non-blood Collection / Unknown 03/25/2024 8:35 PM EST 03/25/2024 8:50 PM EST [facility] - 03/25/2024 9:40 PM EST Testing was performed using the [employer]coe Respiratory Pathogen PCR Assay. All results must [...] MICROBIOLOGY - GENERAL ORDER VENTURA Final Result [facility] [address] [place] [address], * ECG 12 lead (03/25/2024 2:38 PM EST) Only the most recent of2 resultswithin the time period is included. Ventricular Rate ECG 94 BPM GEMUSE Atrial Rate 94 BPM GEMUSE P-R Interval 136 ms GEMUSE QRS Duration 66 ms GEMUSE Q-T Interval 352 ms GEMUSE QTc 440 ms GEMUSE P Wave [place] 73 degrees GEMUSE R [place] 7 degrees GEMUSE T [place] 44 degrees GEMUSE ECG Interpretation Normal sinus rhythm Nonspecific T wave abnormality Abnormal ECG When compared with ECG of 25-MAR-2024 13:05, (unconfirmed) No significant change was found Confirmed by BRITTANY CHURCHILL ([id number]) on 03/26/2024 5:11:01 PM GEMUSE 03/25/2024 2:38 PM EST 03/26/2024 5:11 PM EST us Corona Hale DO ECG ORDERABLES Final Result Performing Organization Address City/[facility] [address]/[place]UST de Phone Number GEMUSE * Troponin I high sensitivity (03/25/2024 2:21 PM EST) Only the most recent of2 resultswithin the time period is included. Pathologist [facility] High Sensitivity Troponin I 4 <=79 ng/L LAB CHEMISTRY METHOD 03/25/2024 3:08 PM EST [facility] Blood Venous blood specimen / Unknown Venipuncture / Unknown 03/25/2024 2:21 PM EST 03/25/2024 2:44 PM EST Narrative [facility] - 03/25/2024 3:08 PM EST High levels of biotin in samples may falsely decrease hsTroponin values. ??Use caution when interpreting hsTroponin results in patients taking biotin who exhibit renal impairment (eGFR <60) or in patients taking more than 20 mg/day of biotin. us Corona Hale DO LAB BLOOD ORDERABLES Final Res ult [facility] [address] [place] [address], * XR Chest 2 Views (03/25/2024 1:16 [...] Signed Date: 03/25/2024 13:35 ET Workstation ID: [id number] Transcribed By: Self Edit Transcribed Date: 03/25/2024 [...] Signed Date: 03/25/2024 13:35 ET Workstation ID: [id number] Transcribed By: Self Edit Transcribed Date: 03/25/2024 13:33 ET Corona Hale DO IMG XR PROCEDURES Final Result * (ABNORMAL) CBC auto differential (03/25/2024 12:56 PM EST) WBC 5.6 4.8 - 10.8 K/mcL LAB HEMETOLOGY METHOD 03/25/2024 1:27 PM [facility] RBC 4.60 4.50 - 5.50 M/mcL LAB HEMETOLOGY METHOD 03/25/2024 1:27 PM [facility] Hemoglobin 12.8(L) 13.5 - 17.5 g/dL LAB HEMETOLOGY METHOD 03/25/2024 1:27 PM [facility] Hematocrit 40.3(L) 42.0 - 54.0 % LAB HEMETOLOGY METHOD 03/25/2024 1:27 PM [facility] MCV 88.0 79.0 - 98.0 FL LAB HEMETOLOGY METHOD 03/25/2024 1:27 PM [facility] MCH 27.9 27.0 - 32.0 pcg LAB HEMETOLOGY METHOD 03/25/2024 1:27 PM [facility] MCHC 31.8(L) 32.0 - 37.0 g/dL LAB HEMETOLOGY METHOD 03/25/2024 1:27 PM [facility] RDW 12.3 11.0 - 15.0 % LAB HEMETOLOGY METHOD 03/25/2024 1:27 PM [facility] Platelets 157 130 - 400 K/mcL LAB HEMETOLOGY METHOD 03/25/2024 1:27 PM [facility] MPV 11.4(H) 7.0 - 11.0 FL LAB HEMETOLOGY METHOD 03/25/2024 1:27 PM [facility] NRBC 0.0 <1.0 % LAB HEMETOLOGY METHOD 03/25/2024 1:27 PM [facility] NRBC Absolute 0.00 <0.10 K/mcL LAB HEMETOLOGY METHOD 03/25/2024 1:27 PM [facility] Neutrophils Relative 72.9 % LAB HEMETOLOGY METHOD 03/25/2024 1:27 PM [facility] Lymphocytes Relative 15.8 % LAB HEMETOLOGY METHOD 03/25/2024 1:27 PM [facility] Monocytes Relative 7.3 % LAB HEMETOLOGY METHOD 03/25/2024 1:27 PM [facility] Eosinophils Relative 3.0 % LAB HEMETOLOGY METHOD 03/25/2024 1:27 PM [facility] Basophils Relative 0.5 % LAB HEMETOLOGY METHOD 03/25/2024 1:27 PM [facility] Immature Granulocytes Relative 0.5 % LAB HEMETOLOGY METHOD 03/25/2024 1:27 PM [facility] Neutrophils Absolute 4.10 1.50 - 7.00 K/mcL LAB HEMETOLOGY METHOD 03/25/2024 1:27 PM [facility] Lymphocytes Absolute 0.89(L) 1.00 - 5.00 K/mcL LAB HEMETOLOGY METHOD 03/25/2024 1:27 PM [facility] Monocytes Absolute 0.41 0.20 - 1.00 K/mcL LAB HEMETOLOGY METHOD 03/25/2024 1:27 PM [facility] Eosinophils Absolute 0.17 0.00 - 0.50 K/mcL LAB HEMETOLOGY METHOD 03/25/2024 1:27 PM EST [facility] Basophils Absolute 0.03 0.00 - 0.20 K/[facility] LAB HEMETOLOGY METHOD 03/25/2024 1:27 PM EST [facility] Immature Granulocytes Absolute 0.03 0.00 - 0.03 K/[facility] LAB HEMETOLOGY METHOD 03/25/2024 1:27 PM EST [facility] Blood Venous blood specimen / Unknown 03/25/2024 12:56 PM EST 03/25/2024 1:11 PM EST us Corona Hale DO LAB BLOOD ORDERABLES Final Res ult Performing Organization Address [facility] [address] [facility]/ZIP Co de Phone Number [facility] [address] [place] [address], [place] [phone] * B-type natriuretic peptide (03/25/2024 12:56 PM EST) BNP 19 <=100 pcg/mL LAB CHEMISTRY METHOD 03/25/2024 1:55 PM EST [facility] Blood Venous blood specimen / Unknown 03/25/2024 12:56 PM EST 03/25/2024 1:11 PM EST us Corona Hale DO LAB BLOOD ORDERABLES Final Res ult [facility] [address] [place] [address], [place] [phone] * Magnesium (03/25/2024 12:56 PM EST) Magnesium 2.1 1.9 - 2.6 mg/dL LAB CHEMISTRY METHOD 03/25/2024 1:42 PM EST [facility] Blood Venous blood specimen / Unknown 03/25/2024 12:56 PM EST 03/25/2024 1:11 PM EST us Corona Hale DO LAB BLOOD ORDERABLES Final Res ult Performing Organization Address City/[facility] [address] [facility]/ZIP Co de Phone Number [facility] [address] [place] [address], [place] [phone] * Lipase (03/25/2024 12:56 PM EST) Lipase 42 13 - 75 unit/L LAB CHEMISTRY METHOD 03/25/2024 1:44 PM [facility] Blood Venous blood specimen / Unknown 03/25/2024 12:56 PM EST 03/25/2024 1:11 PM EST us Corona Hale DO LAB BLOOD ORDERABLES Final Res ult Performing Organization Address [facility]/ZIP Co de Phone Number [facility] [address] [place] [address], [place] [phone] * (ABNORMAL) Comprehensive metabolic panel (03/25/2024 12:56 PM EST) Sodium 140 133 - 145 mmol/L LAB CHEMISTRY METHOD 03/25/2024 1:44 PM [facility] Potassium 3.5 3.5 - 5.5 mmol/L LAB CHEMISTRY METHOD 03/25/2024 1:44 PM [facility] Chloride 106 96 - 110 mmol/L LAB CHEMISTRY METHOD 03/25/2024 1:44 PM [facility] CO2 27 21 - 32 mmol/L LAB CHEMISTRY METHOD 03/25/2024 1:44 PM [facility] Anion Gap 7 3 - 11 LAB CHEMISTRY METHOD 03/25/2024 1:44 PM [facility] Glucose 143(H) 70 - 100 mg/dL LAB CHEMISTRY METHOD 03/25/2024 1:44 PM [facility] BUN 11 5 - 25 mg/dL LAB CHEMISTRY METHOD 03/25/2024 1:44 PM [facility] Creatinine 1.03 0.70 - 1.30 mg/dL LAB CHEMISTRY METHOD 03/25/2024 1:44 PM [facility] eGFR 90 >=60 mL/min/1. 73m2 LAB CHEMISTRY METHOD 03/25/2024 1:44 PM [facility] Comment:Calculation based on the??Chronic Kidney Disease Epidemiology Collaboration (CKD-EPI) equation refit??without adjustment for race. BUN/Creatinine Ratio 10.7 LAB CHEMISTRY METHOD 03/25/2024 1:44 PM [facility] Calcium 9.0 8.5 - 10.5 mg/dL LAB CHEMISTRY METHOD 03/25/2024 1:44 PM [facility] AST (SGOT) 26 10 - 42 unit/L LAB CHEMISTRY METHOD 03/25/2024 1:44 PM [facility] ALT (SGPT) 35 10 - 60 unit/L LAB CHEMISTRY METHOD 03/25/2024 1:44 PM [facility] Alkaline Phosphatase 82 42 - 121 unit/L LAB CHEMISTRY METHOD 03/25/2024 1:44 PM [facility] Total Protein 7.7 6.0 - 8.0 g/dL LAB CHEMISTRY METHOD 03/25/2024 1:44 PM [facility] Albumin 4.4 3.2 - 5.0 g/dL LAB CHEMISTRY METHOD 03/25/2024 1:44 PM [facility] Total Bilirubin 0.9 0.0 - 1.4 mg/dL LAB CHEMISTRY METHOD 03/25/2024 1:44 PM [facility] Blood Venous blood specimen / Unknown 03/25/2024 12:56 PM EST 03/25/2024 1:11 PM EST us Corona Hale DO LAB BLOOD ORDERABLES Final Res ult [facility] [address] [place] [address], * ECG-Annotated (03/25/2024) Only the most recent of2 resultswithin the time period is included. Provider Onbase ECG ORDERABLES Final Result * Hemoglobin A1c (11/08/2023) [facility] Hemoglobin A1C 5.5 <=6.5 % Blood Venous blood specimen / Unknown Result [facility] Provider LAB BLOOD ORDERABLES Qian l Result * Urine Albumin Creatinine Ratio (05/10/2023) [facility] Urine Albumin Creatinine Ratio Abstracted Result [facility] Provider HEALTH MAINTENANCE Final Result * (ABNORMAL) Lipid panel (05/10/2023) [facility] LDL/HDL Ratio 3 0 - 4 Triglycerides 84 0 - 150 mg/dL Cholesterol 185 0 - 200 mg/dL HDL 62 >=40 mg/dL LDL Cholesterol 107(A) 0 - 100 mg/dL Blood Venous blood specimen / Unknown Result [facility] Provider LAB BLOOD ORDERABLES Qian l Result * Diabetes Eye Exam (04/18/2023) [facility] Diabetes: Annual Retina Eye Exam Abstracted Result [facility] Provider HEALTH MAINTENANCE Final Result from Last 3 Months or Most Recently Relevant to Health Maintenance Insurance [facility] [employer] Care Teams Wire Tester Relationship Specialty Start Date End Date Myrna Clemens MD [address] [place] [phone] PCP - General Internal Medicine 06/30/20
== END 2024-05-08 09:11 | disposition home or self-care (01) ==
LOC: HO.XRAY 09:10
PROVIDERS: PCP Internal Medicine; Visit Provider Hospitalist
DX: R07.9 Chest pain, unspecified (principal); R10.9 Unspecified abdominal pain; R07.89 Other chest pain; J45.40 Moderate persistent asthma, uncomplicated; G47.33 Obstructive sleep apnea (adult) (pediatric); J98.4 Other disorders of lung; R06.00 Dyspnea, unspecified; J98.6 Disorders of diaphragm; R59.1 Generalized enlarged lymph nodes; M54.50 Low back pain, unspecified
CPT/HCPCS: 71046; 99212

== ENCOUNTER 2024-05-08 09:10 | Outpatient (AMB) | payer OTHER, SELFPAY ==
--- OUTSIDE RECORDS SUMMARY | 2024-05-08 09:34 | XMS_ITS | Clinical Summary ---
Author Organization 175 [facility] Address [address] [place] [address] Phone Care Team Providers Care Driveway Attendant Name Role Phone Myrna Clemens MD Primary Care Provider [phone] Allergies No known active allergies Medications albuterol HFA (PROAIR HFA ; PROVENTIL HFA ; VENTOLIN HFA) 90 mcg/actuation inhaler Inhale 2 Puffs into the lungs every 4 hours as needed. Active B complex tablet Take by mouth. Active betamethasone, augmented, (DIPROLENE-AF) 0.05 % cream Apply locally twice a day 1 Active fluticasone furoate-vilantero L (Breo Ellipta) 100-25 mcg/dose inhaler 1 Active cholecalciferol (VITAMIN D-3) 50 mcg (2,000 unit) tablet Take 1 Tablet by mouth daily. 4 Active cholecalciferol (VITAMIN D-3) 125 mcg (5,000 unit) capsule Take by mouth. Activ e clobetasoL (TEMOVATE) 0.05 % ointment APPLY TO LEGS DOS VECES AL D A CUANDO SEA NECESARIO FOR FLARES, DECREASE SYMPTOMS IMPROVE 4 Active clonazePAM (KlonoPIN) 1 mg tablet 9 Active diclofenac (VOLTAREN) 75 mg EC tablet TAKE 1 TABLET BY MOUTH TWICE A DAY WITH FOOD NEEDED FOR PAIN 1 Active ferrous sulfate 325 mg (65 mg elemental iron) tablet Take 1 Tab by mouth daily. 9 Active folic acid (FOLVITE) 400 mcg tablet Take 1 Tab by mouth daily. 9 Active FREESTYLE LANCETS MISC 8 Active gabapentin (NEURONTIN) 400 mg capsule Take 400 mg by mouth at bedtime. Active blood sugar diagnostic (FreeStyle Lite Strips) test strip 9 Active hydroxychloroquin e (PLAQUENIL) 200 mg tablet TOME MARTHA TABLETA TODOS LOS D 4 Active lisinopriL (PRINIVIL,ZESTRIL ) 5 mg tablet Take 5 mg by mouth daily. Active meloxicam (MOBIC) 7.5 mg tablet TAKE 1 TABLET BY MOUTH EVERY DAY 1 Active mometasone-formot el (DULERA 200) 200-5 mcg/actuation inhaler Inhale 1 Puff into the lungs 2 times daily. Active montelukast (SINGULAIR) 10 mg tablet TAKE 1 TABLET BY MOUTH AT BEDTIME 0 Active pantoprazole (PROTONIX) 40 mg EC tablet 9 Active PARoxetine (PAXIL) 30 mg tablet Take 1 Tab by mouth every morning. 9 Active tacrolimus (Protopic) 0.1 % ointment Apply sparingly twice a day to back of legs and inside lower legs 1 Active roflumilast (DALIRESP) 500 mcg tablet Take 500 mcg by mouth daily. 9 Active rosuvastatin (CRESTOR) 20 mg tablet Take 1 Tab by mouth daily. 8 Active traZODone (DESYREL) 50 mg tablet Take 1 Tab by mouth at bedtime. 8 Active triamcinolone (KENALOG) 0.025 % cream Apply to affected area 1-2 times a day for 2 weeks. Do not use in face or genital area. 9 Active dulaglutide (Trulicity) 1.5 mg/0.5 mL pen injector injection INJECT 1.5 MG INTO THE SKIN ONCE A WEEK. 2 mL 11 4 Active celecoxib (CeleBREX) 200 mg capsuleIndication s:Fibromyalgia Take 1 capsule (200 mg total) by mouth 2 (two) times a day. 60 each 5 4 025 Active gemfibroziL (LOPID) 600 mg tabletIndications :Type 2 diabetes mellitus without complications (CMS/HCC) Take 1 tablet (600 mg total) by mouth 2 (two) times a day. 180 tablet 1 4 Active predniSONE (DELTASONE) 20 mg tablet Take 1 tablet (20 mg total) by mouth 1 (one) time each day. 10 tablet 5 Active acetaminophen (TYLENOL) 500 mg tablet Take 2 tablets (1,000 mg total) by mouth every 8 (eight) hours. 30 tablet 5 Active ibuprofen (ADVIL,MOTRIN) 600 mg tablet Take 1 tablet (600 mg total) by mouth every 8 (eight) hours if needed for moderate pain or fever - temperature GREATER than 38 C (100.4 F). 30 tablet 5 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 Obstructive sleep apnea 09/27/2016 Overview (01/21/2024): mild LAYNE 6 [facility] Home Sleep Apnea Test: Date 09/16/2018; Wt 179#; BMI 31; LAYNE 6, AI 0.1; HI 6; Unclassified apneas 0; Obstructive apneas 1; Central apneas 0; Mixed apneas 0; hypopneas 48; average oxygen saturation 94% (lowest 77% without saturations <88% for 5% or more of study) - Obstructive Sleep Apnea - mild; mostly hypopneas; without sleep related hypoventilation by 2018 home sleep apnea test. Type 2 diabetes mellitus without complication Avascular necrosis of bone of hip 06/07/2016 Asthma 05/11/2016 Diverticulosis of intestine 05/11/2016 Encounters Date Type Department Care Team Description 03/25/2024 6:35 PM EST - 03/25/2024 11:06 PM EST Emergency [facility] Emergency [address] [place] [address] Shortness of breath (Primary Dx); Pneumonia due to respiratory syncytial virus (RSV) Discharge Disposition: Home or Self Care 03/02/2024 2:15 PM EST Office Visit Internal Medicine - [place] [address] [facility] [address] [place] [address] Farnaz Shipley NP Type 2 diabetes mellitus without complication, unspecified whether assisted insulin use ([facility]) (Primary Dx); Hypertriglyceridemia; Hypertension, unspecified type; Asthma with COPD ([facility]); H/O testicular cancer; Fibromyalgia; Intertrigo from Last 3 Months Immunizations Name Administration Dates Next Due Influenza Quadravalent, MDCK , 0.5ml, preservative free (Flucelvax) 6mo and older 12/27/2017 Influenza Quadravalent, MDCK , 0.5ml, with preservative (Flucelvax) 6mo and older 02/22/2017 Tdap Tetanus diptheria acell ular pertussis (Boostrix; Adacel) 7yo and older 12/02/2015 Surgical History Surgery Date Site/Laterality Comments OTHER SURGICAL HISTORY PROCEDURE: ---- OTHER ----; COMMENT: Mediastinal malignancy excision OTHER SURGICAL HISTORY PROCEDURE: [place] UNLISTED PROCEDURE DIAPHRAGM Medical History Medical History Date Comments Depression 01/23/2017 DX:Depression History of testicular cancer 01/23/2017 DX: History of testicular cancer Asthma 05/11/2016 DX:Asthma Avascular necrosis of bone o f hip ([facility]) 06/07/2016 DX:Avascular necrosis of bon e of hip ([facility]) 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 Diverticulosis of intestine 05/11/2016 DX:D iverticulosis of intestine History of renal calculi 12/30/2015 DX:Hist ory of renal calculi Hypertension 12/11/2016 DX:Hypertension Hypertriglyceridemia 12/11/2016 DX:Hypertri glyceridemia Obstructive sleep apnea syndrome 09/27/2016 DX:Obstructive sleep apnea syndrome Type 2 diabetes mellitus wit hout complication ([facility]) 09/27/2016 DX:Type 2 diabetes mellitus without complication ([facility]) History of malignant neoplas m of mediastinum 05/17/2017 DX:History of malignant neop lasm of mediastinum; COMMENT: S/p resection as child Left inguinal hernia 09/30/2017 DX:Left ing uinal hernia Family History Medical History Relation Name Comments Coronary artery disease Father Relation Name Status Comments Father Alive Mother Alive Social History Tobacco Use Types Packs/Day Years Used Date Smoking Tobacco: Never Smokeless Tobacco: Never Tobacco Cessation:Counseling Given: Not Answered Alcohol Use Standard Drinks/Week Comments No 0 (1 standard drink = 0.6 oz pur e alcohol) Sex and Gender Information Value Date Recorded Sex Assigned at Male 03/25/2024 1:00 PM EST Legal Sex Male 4:55 AM EST Gender Identity Male 03/25/2024 1:00 PM EST Sexual Orientation Straight 03/25/2024 1: 00 PM EST Obstetrics History Last Filed Vital Signs Vital Sign Reading Time Taken Comments Blood Pressure 126/82 03/25/2024 8:33 PM EST Pulse 102 03/25/2024 8:33 PM EST Temperature 38.6 ??C (101.5 ??F) 03/25/2024 8:[address] Respiratory Rate 17 03/25/2024 8:33 PM EST Oxygen Saturation 96% 03/25/2024 8:33 PM EST Inhaled Oxygen Concentration - - Weight 72.6 kg (160 lb) 03/25/2024 12:08 PM EST Height 160 cm (5' 3 ) 03/25/2024 12:08 PM EST Body Mass Index 28.34 03/25/2024 12:08 PM EST Plan of Treatment Upcoming Encounters Date Type Department Care Team (Late st Contact Info) Description 05/12/2024 1:15 PM EST Office Visit Endocrinology [address] [phone] [place] [address] [place] [address] 09/02/2024 2:15 PM EDT Office Visit Internal Medicine [facility] [address] [phone] Farnaz Shipley NP [address] [address] Health Maintenance Due Date Last Done Comments Diabetes: Annual Foot Exam 1987 Hepatitis B Vaccines (1 of 3 - 19+ 3-dose series) 02/04/1996 Pneumococcal Vaccine: Pediatrics (0 to 5 Years) and At-Risk Patients (6 to 64 Years) (1 of 2 - PCV) 02/04/1996 Colorectal Cancer Screening: Colonoscopy 02/25/2022 Depression Screening 02/25/2022 HIV Screening 02/25/2022 Hepatitis C Screening 02/25/2022 Social Influencers of Health Screening 02/25/2022 COVID-19 Vaccine (2 - Modern a risk series) 04/26/2022 03/29/2022 Influenza Vaccine (#1) 2023 8, 02/22/2017 Diabetes: Annual Retina Eye Exam 04/18/2024 04/18/2023 Diabetes: Annual Urine Albumin-Creatinine Ratio (uACR) 05/10/2024 05/10/2023 Diabetes: Blood Sugar Contro l Test (HGBA1C) 05/10/2024 11/08/2023, 11/08/2023 Diabetes: Annual GFR (Glomerular Filtration Rate) 03/25/2025 03/25/2024, 11/08/2023, 09/13/2023 Hypertension/CHF/CAD Annual BMP Blood Test 03/25/2025 03/25/2024, 11/08/2023, 09/13/2023 DTaP,Tdap,and Td Vaccines (2 - Td or Tdap) 12/01/2025 12/02/2015 Cholesterol Screening (Lipid Panel) 05/10/2028 05/10/2023 HIB Vaccines Aged Out No longer eligi ble based on patient's age to complete this topic HPV Vaccines Aged Out No longer eligi ble based on patient's age to complete this topic Hepatitis A Vaccines Aged Out No long er eligible based on patient's age to complete this topic IPV Vaccines Aged Out No longer eligi ble based on patient's age to complete this topic MMR Vaccines Aged Out No longer eligi ble based on patient's age to complete this topic Meningococcal ACWY Vaccine Aged Out N o longer eligible based on patient's age to complete this topic Meningococcal B Vacine Aged Out No lo nger eligible based on patient's age to complete this topic RSV Immunization Patients Under 20 months Aged Out No longer eligible b ased on patient's age to complete this topic Varicella Vaccines Aged Out No longer eligible based on patient's age to complete this topic Procedures Procedure Name Priority Date/Time Associated Diagnosis Comments CT ANGIO CHEST WO AND/OR W CONTRAST STAT 03/25/2024 9:40 PM EST Shortness of breath RESPIRATORY VIRUS PANEL MOLECULAR STUDY STAT 03/25/2024 8:35 PM EST ECG 12-LEAD STAT 03/25/2024 2:38 PM EST TROPONIN I HIGH SENSITIVITY STAT 03/25/2024 2:21 PM EST XR CHEST 2 VIEWS STAT 03/25/2024 1:16 PM EST ECG 12-LEAD STAT 03/25/2024 1:05 PM EST CBC WITH AUTO DIFFERENTIAL STAT 03/25/2024 12:56 PM EST B-TYPE NATRIURETIC PEPTIDE STAT 03/25/2024 12:56 PM EST MAGNESIUM STAT 03/25/2024 12:56 PM EST LIPASE STAT 03/25/2024 12:56 PM EST COMPREHENSIVE METABOLIC PANEL STAT 03/25/2024 12:56 PM EST CBC AND DIFFERENTIAL STAT 03/25/2024 12:56 PM EST TROPONIN I HIGH SENSITIVITY STAT 03/25/2024 12:56 PM EST ECG ANNOTATED 03/25/2024 ECG ANNOTATED 03/25/2024 HEMOGLOBIN A1C Routine 11/08/2023 URINE ALBUMIN CREATININE RATIO Routine 05/10/2023 LIPID PANEL Routine 05/10/2023 DIABETES EYE EXAM Routine 04/18/2023 from Last 3 Months or Most Recently Relevant to Health Maintenance Results * CT Angio Chest wo and/or w Contrast (03/25/2024 9:40 PM EST) Anatomical Region Laterality Modality Body Computed Tomogra phy 03/25/2024 10:0 5 PM EST Impressions 03/25/2024 10:05 PM EST Impression: 1. No pulmonary emboli. 2. No thoracic aortic aneurysm or dissection. 3. Small areas of clumped nodular densities in the right lower lobe concerning for pneumonia. 4. Prominent elevation of the left hemidiaphragm with areas of atelectasis in the left lower lobe and left lingula. This document has been electronically signed by: Fernanda Espino MD on 03/25/2024 22:05:59 Narrative 03/25/2024 10:05 PM EST Exam: CTA Chest with IV contrast. Procedure: 90 mL of Isovue 370. Coronal and sagittal MIP reformats were performed Comparison: None Clinical history: PE suspected, high probability. Cough, shortness of breath, subjective fevers. Findings: Sternal wires are noted. No pulmonary emboli. No thoracic aortic aneurysm or dissection. Atherosclerotic calcifications are seen at the coronary arteries. No hilar or mediastinal adenopathy. Right axillary adenopathy. No left axillary adenopathy. No pericardial fluid collection. No pneumothorax. No pleural fluid collection. Prominent elevation of the left hemidiaphragm with left lower lobe and left lingular atelectasis. Small areas of clumped nodular densities in the right lower lobe image 90 and image 50 concerning for pneumonia. Visualized liver and spleen do not demonstrate any acute process. No thoracic spine compression fractures. Procedure Note Fernanda Espino MD - 03/25/2024 Exam: CTA Chest with IV contrast. Procedure: 90 mL of Isovue 370. Coronal and sagittal MIP reformats were performed Comparison: None Clinical history: PE suspected, high probability. Cough, shortness of breath, subjective fevers. Findings: Sternal wires are noted. No pulmonary emboli. No thoracic aortic aneurysm or dissection. Atherosclerotic calcifications are seen at the coronary arteries. No hilar or mediastinal adenopathy. Right axillary adenopathy. No left axillary adenopathy. No pericardial fluid collection. No pneumothorax. No pleural fluid collection. Prominent elevation of the left hemidiaphragm with left lower lobe and left lingular atelectasis. Small areas of clumped nodular densities in the right lower lobe image90 and image 50 concerning for pneumonia. Visualized liver and spleen do not demonstrate any acute process. No thoracic spine compression fractures. IMPRESSION: Impression: 1. No pulmonary emboli. 2. No thoracic aortic aneurysm or dissection. 3. Small areas of clumped nodular densities in the right lower lobe concerning for pneumonia. 4. Prominent elevation of the left hemidiaphragm with areas ofatelectasis in the left lower lobe and left lingula. This document has been electronically signed by: Fernanda Espino MD on 03/25/2024 22:05:59 Jason LUCERO [facility] [place] PROCEDURES Final Result * (ABNORMAL) Respiratory virus panel molecular study (03/25/2024 8:35 PM EST) Adenovirus Detection by PCR Not Detected Not Detected LAB MICROBIOLOGY METHOD 03/25/2024 9:40 PM EST [facility] Influenza A PCR Not Detected Not Detected LAB MICROBIOLOGY METHOD 03/25/2024 9:40 PM EST [facility] Influenza B PCR Not Detected Not Detected LAB MICROBIOLOGY METHOD 03/25/2024 9:40 PM EST [facility] Coronavirus 229E Not Detected Not Detected LAB MICROBIOLOGY METHOD 03/25/2024 9:[address] [facility] Coronavirus HKU1 Not Detected Not Detected LAB MICROBIOLOGY METHOD 03/25/2024 9:[address] [facility] Coronavirus OC43 Not Detected Not Detected LAB MICROBIOLOGY METHOD 03/25/2024 9:[address] [facility] Coronavirus NL63 Not Detected Not Detected LAB MICROBIOLOGY METHOD 03/25/2024 9:40 PM EST [facility] Parainfluenza Virus 1 Not Detected Not Detected LAB MICROBIOLOGY METHOD 03/25/2024 9:[address] [facility] Parainfluenza Virus 2 Not Detected Not Detected LAB MICROBIOLOGY METHOD 03/25/2024 9:[address] [facility] Parainfluenza Virus 3 Not Detected Not Detected LAB MICROBIOLOGY METHOD 03/25/2024 9:[address] [facility] Parainfluenza Virus 4 Not Detected Not Detected LAB MICROBIOLOGY METHOD 03/25/2024 9:40 PM EST [facility] RSV PCR Detected(A ) Not Detected LAB MICROBIOLOGY METHOD 03/25/2024 9:40 PM EST [facility] Human Metapneumovirus A and B Not Detected Not Detected LAB MICROBIOLOGY METHOD 03/25/2024 9:40 PM EST [facility] Rhinovirus/Entero virus Not Detected Not Detected LAB MICROBIOLOGY METHOD 03/25/2024 9:40 PM EST [facility] Bordetella pertussis Not Detected Not Detected LAB MICROBIOLOGY METHOD 03/25/2024 9:40 PM EST [facility] Bordetella parapertussis Not Detected Not Detected LAB MICROBIOLOGY METHOD 03/25/2024 9:40 PM EST [facility] Mycoplasma pneumo by PCR Not Detected Not Detected LAB MICROBIOLOGY METHOD 03/25/2024 9:[address] [facility] Chlamydia pneumoniae Not Detected Not Detected LAB MICROBIOLOGY METHOD 03/25/2024 9:[address] [facility] SARS COV-2 Not Detected Not Detected LAB MICROBIOLOGY METHOD 03/25/2024 9:[address] [facility] Swab Both anterior nares / Unknown Non-blood Collection / Unknown 03/25/2024 8:35 PM EST 03/25/2024 8:50 PM EST [facility] - 03/25/2024 9:40 PM EST Testing was performed using the [employer] Respiratory Pathogen PCR Assay. All results must be correlated with the clinical findings. Results should not be used as the sole basis for diagnosis. False Negative results may occur from the presence of sequence variants in the region targeted by the assay or the presence of inhibitors. Results may be affected by concurrent antiviral/antimicrobial therapy or levels of organisms that are below the limit of detection. us Jason LUCERO LAB MICROBIOLOGY - GENERAL ORDER VENTURA Final Result [facility] [address] [place] [address], * ECG 12 lead (03/25/2024 2:38 PM EST) Only the most recent of2 resultswithin the time period is included. Ventricular Rate ECG 94 BPM GEMUSE Atrial Rate 94 BPM GEMUSE P-R Interval 136 ms GEMUSE QRS Duration 66 ms GEMUSE Q-T Interval 352 ms GEMUSE QTc 440 ms GEMUSE P Wave Magee 73 degrees GEMUSE R Magee 7 degrees GEMUSE T Magee 44 degrees GEMUSE ECG Interpretation Normal sinus rhythm Nonspecific T wave abnormality Abnormal ECG When compared with ECG of 25-MAR-2024 13:05, (unconfirmed) No significant change was found Confirmed by BRITTANY CHURCHILL ([id number]) on 03/26/2024 5:11:01 PM GEMUSE 03/25/2024 2:38 PM EST 03/26/2024 5:11 PM EST us Corona Hale DO ECG ORDERABLES Final Result Performing Organization Address City/[facility] de Phone Number GEMUSE * Troponin I high sensitivity (03/25/2024 2:21 PM EST) Only the most recent of2 resultswithin the time period is included. Pathologist [facility] High Sensitivity Troponin I 4 <=79 ng/L LAB CHEMISTRY METHOD 03/25/2024 3:08 PM EST [facility] Blood Venous blood specimen / Unknown Venipuncture / Unknown 03/25/2024 2:21 PM EST 03/25/2024 2:44 PM EST Narrative [facility] - 03/25/2024 3:08 PM EST High levels of biotin in samples may falsely decrease hsTroponin values. ??Use caution when interpreting hsTroponin results in patients taking biotin who exhibit renal impairment (eGFR <60) or in patients taking more than 20 mg/day of biotin. us Corona Hale DO LAB BLOOD ORDERABLES Final Res ult [facility] [address] [place] [address], * XR Chest 2 Views (03/25/2024 1:16 PM EST) Anatomical Region Laterality Modality Body Radiographic Christel ging 03/25/2024 1:33 PM EST Impressions 03/25/2024 1:35 PM EST Moderate eventration of left hemidiaphragm with minimal left basal atelectasis. No change from chest x-ray 02/08/2017. -------- FINAL REPORT -------- Dictated By: Kiet Alvarado Dictated Date: 03/25/2024 13:33 ET Assigned Physician: Kiet Alvarado Reviewed and Electronically Signed By: Kiet Alvarado Signed Date: 03/25/2024 13:35 ET Workstation ID: [id number] Transcribed By: Self Edit Transcribed Date: 03/25/2024 13:33 ET Narrative 03/25/2024 1:35 PM EST EXAMINATION: Chest 2 views. CLINICAL INDICATION: Chest pain, SOB. Bronchitis. COMPARISON: Chest 02/08/2017. FINDINGS: There is moderate eventration of left hemidiaphragm. The lungs are expanded and clear of acute pneumonic process is minimal left basilar atelectasis. The heart size is enlarged. Pulmonary vascularity is normal. No gross bony abnormality seen except for solitary median sternotomy suture, unchanged. Procedure Note Kiet Alvarado MD - 03/25/2024 EXAMINATION: Chest 2 views. CLINICAL INDICATION: Chest pain, SOB. Bronchitis. COMPARISON: Chest 02/08/2017. FINDINGS: There is moderate eventration of left hemidiaphragm. The lungsare expanded and clear of acute pneumonic process is minimal left basilaratelectasis. The heart size is enlarged. Pulmonary vascularity is normal.No gross bony abnormality seen except for solitary median sternotomysuture, unchanged. IMPRESSION: Moderate eventration of left hemidiaphragm with minimal left basalatelectasis. No change from chest x-ray 02/08/2017. -------- FINAL REPORT -------- Dictated By: Kiet Alvarado Dictated Date: 03/25/2024 13:33 ET Assigned Physician: Kiet Alvarado Reviewed and Electronically Signed By: Kiet Alvarado Signed Date: 03/25/2024 13:35 ET Workstation ID: [id number] Transcribed By: Self Edit Transcribed Date: 03/25/2024 13:33 ET Corona Hale DO IMG XR PROCEDURES Final Result * (ABNORMAL) CBC auto differential (03/25/2024 12:56 PM EST) WBC 5.6 4.8 - 10.8 K/mcL LAB HEMETOLOGY METHOD 03/25/2024 1:[address] [facility] RBC 4.60 4.50 - 5.50 M/mcL LAB HEMETOLOGY METHOD 03/25/2024 1:[address] [facility] Hemoglobin 12.8(L) 13.5 - 17.5 g/dL LAB HEMETOLOGY METHOD 03/25/2024 1:[address] [facility] Hematocrit 40.3(L) 42.0 - 54.0 % LAB HEMETOLOGY METHOD 03/25/2024 1:[address] [facility] MCV 88.0 79.0 - 98.0 FL LAB HEMETOLOGY METHOD 03/25/2024 1:[address] [facility] MCH 27.9 27.0 - 32.0 pcg LAB HEMETOLOGY METHOD 03/25/2024 1:[address] [facility] MCHC 31.8(L) 32.0 - 37.0 g/dL LAB HEMETOLOGY METHOD 03/25/2024 1:[address] [facility] RDW 12.3 11.0 - 15.0 % LAB HEMETOLOGY METHOD 03/25/2024 1:[address] [facility] Platelets 157 130 - 400 K/mcL LAB HEMETOLOGY METHOD 03/25/2024 1:[address] [facility] MPV 11.4(H) 7.0 - 11.0 FL LAB HEMETOLOGY METHOD 03/25/2024 1:[address] [facility] NRBC 0.0 <1.0 % LAB HEMETOLOGY METHOD 03/25/2024 1:[address] [facility] NRBC Absolute 0.00 <0.10 K/mcL LAB HEMETOLOGY METHOD 03/25/2024 1:[address] [facility] Neutrophils Relative 72.9 % LAB HEMETOLOGY METHOD 03/25/2024 1:[address] [facility] Lymphocytes Relative 15.8 % LAB HEMETOLOGY METHOD 03/25/2024 1:[address] [facility] Monocytes Relative 7.3 % LAB HEMETOLOGY METHOD 03/25/2024 1:[address] [facility] Eosinophils Relative 3.0 % LAB HEMETOLOGY METHOD 03/25/2024 1:[address] [facility] Basophils Relative 0.5 % LAB HEMETOLOGY METHOD 03/25/2024 1:[address] [facility] Immature Granulocytes Relative 0.5 % LAB HEMETOLOGY METHOD 03/25/2024 1:[address] [facility] Neutrophils Absolute 4.10 1.50 - 7.00 K/mcL LAB HEMETOLOGY METHOD 03/25/2024 1:[address] [facility] Lymphocytes Absolute 0.89(L) 1.00 - 5.00 K/mcL LAB HEMETOLOGY METHOD 03/25/2024 1:[address] [facility] Monocytes Absolute 0.41 0.20 - 1.00 K/mcL LAB HEMETOLOGY METHOD 03/25/2024 1:[address] [facility] Eosinophils Absolute 0.17 0.00 - 0.50 K/mcL LAB HEMETOLOGY METHOD 03/25/2024 1:27 PM EST [facility] Basophils Absolute 0.03 0.00 - 0.20 K/[facility] LAB HEMETOLOGY METHOD 03/25/2024 1:27 PM EST [facility] Immature Granulocytes Absolute 0.03 0.00 - 0.03 K/[facility] LAB HEMETOLOGY METHOD 03/25/2024 1:27 PM EST [facility] Blood Venous blood specimen / Unknown 03/25/2024 12:56 PM EST 03/25/2024 1:11 PM EST us Corona Hale DO LAB BLOOD ORDERABLES Final Res ult Performing Organization Address [facility]/ZIP Co de Phone Number [facility] [address] [place] [address], [place] [phone] * B-type natriuretic peptide (03/25/2024 12:56 PM EST) BNP 19 <=100 pcg/mL LAB CHEMISTRY METHOD 03/25/2024 1:55 PM EST [facility] Blood Venous blood specimen / Unknown 03/25/2024 12:56 PM EST 03/25/2024 1:11 PM EST us Corona Hale DO LAB BLOOD ORDERABLES Final Res ult [facility] [address] [place] [address], [place] [phone] * Magnesium (03/25/2024 12:56 PM EST) Magnesium 2.1 1.9 - 2.6 mg/dL LAB CHEMISTRY METHOD 03/25/2024 1:42 PM EST [facility] Blood Venous blood specimen / Unknown 03/25/2024 12:56 PM EST 03/25/2024 1:11 PM EST us Corona Hale DO LAB BLOOD ORDERABLES Final Res ult Performing Organization Address City/[facility]/ZIP Co de Phone Number [facility] [address] [place] [address], [place] [phone] * Lipase (03/25/2024 12:56 PM EST) Lipase 42 13 - 75 unit/L LAB CHEMISTRY METHOD 03/25/2024 1:[address] [facility] Blood Venous blood specimen / Unknown 03/25/2024 12:56 PM EST 03/25/2024 1:11 PM EST us Corona Hale DO LAB BLOOD ORDERABLES Final Res ult Performing Organization Address [facility]/ZIP Co de Phone Number [facility] [address] [place] [address], [place] [phone] * (ABNORMAL) Comprehensive metabolic panel (03/25/2024 12:56 PM EST) Sodium 140 133 - 145 mmol/L LAB CHEMISTRY METHOD 03/25/2024 1:[address] [facility] Potassium 3.5 3.5 - 5.5 mmol/L LAB CHEMISTRY METHOD 03/25/2024 1:[address] [facility] Chloride 106 96 - 110 mmol/L LAB CHEMISTRY METHOD 03/25/2024 1:[address] [facility] CO2 27 21 - 32 mmol/L LAB CHEMISTRY METHOD 03/25/2024 1:[address] [facility] Anion Gap 7 3 - 11 LAB CHEMISTRY METHOD 03/25/2024 1:[address] [facility] Glucose 143(H) 70 - 100 mg/dL LAB CHEMISTRY METHOD 03/25/2024 1:[address] [facility] BUN 11 5 - 25 mg/dL LAB CHEMISTRY METHOD 03/25/2024 1:[address] [facility] Creatinine 1.03 0.70 - 1.30 mg/dL LAB CHEMISTRY METHOD 03/25/2024 1:[address] [facility] eGFR 90 >=60 mL/min/1. 73m2 LAB CHEMISTRY METHOD 03/25/2024 1:[address] [facility] Comment:Calculation based on the??Chronic Kidney Disease Epidemiology Collaboration (CKD-EPI) equation refit??without adjustment for race. BUN/Creatinine Ratio 10.7 LAB CHEMISTRY METHOD 03/25/2024 1:[address] [facility] Calcium 9.0 8.5 - 10.5 mg/dL LAB CHEMISTRY METHOD 03/25/2024 1:[address] [facility] AST (SGOT) 26 10 - 42 unit/L LAB CHEMISTRY METHOD 03/25/2024 1:[address] [facility] ALT (SGPT) 35 10 - 60 unit/L LAB CHEMISTRY METHOD 03/25/2024 1:[address] [facility] Alkaline Phosphatase 82 42 - 121 unit/L LAB CHEMISTRY METHOD 03/25/2024 1:[address] [facility] Total Protein 7.7 6.0 - 8.0 g/dL LAB CHEMISTRY METHOD 03/25/2024 1:[address] [facility] Albumin 4.4 3.2 - 5.0 g/dL LAB CHEMISTRY METHOD 03/25/2024 1:[address] [facility] Total Bilirubin 0.9 0.0 - 1.4 mg/dL LAB CHEMISTRY METHOD 03/25/2024 1:[address] [facility] Blood Venous blood specimen / Unknown 03/25/2024 12:56 PM EST 03/25/2024 1:11 PM EST us Corona Hale DO LAB BLOOD ORDERABLES Final Res ult [facility] [address] [place] [address], * ECG-Annotated (03/25/2024) Only the most recent of2 resultswithin the time period is included. Provider Onbase ECG ORDERABLES Final Result * Hemoglobin A1c (11/08/2023) [facility] Hemoglobin A1C 5.5 <=6.5 % Blood Venous blood specimen / Unknown Result [facility] Provider LAB BLOOD ORDERABLES Qian l Result * Urine Albumin Creatinine Ratio (05/10/2023) [facility] Urine Albumin Creatinine Ratio Abstracted Result [facility] Provider HEALTH MAINTENANCE Final Result * (ABNORMAL) Lipid panel (05/10/2023) [facility] LDL/HDL Ratio 3 0 - 4 Triglycerides 84 0 - 150 mg/dL Cholesterol 185 0 - 200 mg/dL HDL 62 >=40 mg/dL LDL Cholesterol 107(A) 0 - 100 mg/dL Blood Venous blood specimen / Unknown Result [facility] Provider LAB BLOOD ORDERABLES Qian l Result * Diabetes Eye Exam (04/18/2023) [facility] Diabetes: Annual Retina Eye Exam Abstracted Result [facility] Provider HEALTH MAINTENANCE Final Result from Last 3 Months or Most Recently Relevant to Health Maintenance Insurance [facility] Care Teams Driveway Attendant Relationship Specialty Start Date End Date Myrna Clemens MD [address] [place] [phone] PCP - General Internal Medicine 06/30/20
[2024-05-08 09:48] VITALS: BP 136/74; PULSE 63; O2SAT 99; BMI 29.1
--- NOTE | 2024-05-08 09:48 | MHC.OFFVIS ---
Vital Signs 05/08/24 09:48 Height 5 ft 3 in Weight 164 lb 3.91 oz BMI 29.1 BP 136/74 Blood Pressure Location Rt brachial Position Sitting Pulse 63 Pulse Source Pulse Oximeter Pulse Oximetry (%) 99 Oxygen Delivery Method Room Air Intake Visit Reasons: Asthma Allergies No Known Allergies Allergy (Verified 01/07/24 10:36) HPI Comments Details: The patient is 49 y/o man with a history of asthma in addition to obstructive sleep apnea. We did switch his mask the last visit and is tolerating it much better. He is also getting supplies regularly now. The CPAP therapy continues to be affecting beneficial. He is using more than 4 hours a night. His asthma appears to be in better control. He continues to use his respiratory regimen including his allergy medicine. He is not using the short-acting beta agonist more than twice a week. He has been complaining of other issues including arthralgias and what appears to be neuropathic pain. He is having hard time sleeping with it. Therefore affecting his daytime drowsiness. He does have a prescription of gabapentin but he is not using it at this time as prescribed. I requested that I can at least use it at nighttime to can help him sleep in also helping with the pain. 12/29/2021 the patient is here for a pulmonary follow-up visit. Breathing has been stable with his current respiratory therapy. The CPAP therapy has been affecting beneficial. He continues using more than 4 hours a night. He has been getting supplies readily available. He still dealing with significant back pain. He had an appoint with pain management but because a history of cancer does felt that he needs to follow up closely with Oncology in case this is metastatic disease. The patient needs to follow-up with oncology. He was going to [facility] for his oncological care. He will Call for an appointment. In the meantime he is having hard time sleeping far because of the back pain and also because insomnia. Therefore will go ahead and increase his gabapentin to a more effective dose at nighttime. He is currently looking for a PCP and also needs a Neurologist. 04/03/2022 the patient is here for a pulmonary follow-up visit. The patient has multiple complaints. A lot of them are not pulmonary. He still struggling to find a primary care doctor. The patient continues with respiratory therapy. In addition to that he continues uses CPAP every night. The CPAP therapy continues to be affecting beneficial. He does use CPAP for more than 4 hours a night. He has been complaining of joint pains. He did see the neurologist and he may have a component of carpal tunnel. The patient also had elevations in his BRIAN titers and also positive double-stranded DNA titers. He does have chest discomfort at times. Denies any rashes. In order to treat his she pleuritic discomfort and arthritis are go ahead and place him on Plaquenil. The patient will benefit from a rheumatological evaluation. Meantime she will continue with current respiratory regimen. 06/29/2022 the patient is here for a pulmonary follow-up visit. The patient is doing well from a respiratory status. He is using CPAP every night. He does use it every night for more than 4 hours a night. He does get a lot of benefit from the CPAP. He did get a call from a [employer] recently about his CPAP. He is concerned that the going to take away his CPAP. His CPAP appears to be very old he has at rest med S9 which is more than 10 years old. Still appears to be effective any did recently get supplies for. Although at some point may stop working. He may need to get a replacement. He will bring in the CPAP to the next visit so we can evaluated and see if he needs to get a new 1 order then. He continues uses respiratory therapy with good effect. Still dealing with significant other elements as far as neurological musculoskeletal. He did follow-up with Neurology who will refer him to a hand surgeon and also will be seen Rheumatology soon. 01/02/2023 the patient is here for a pulmonary follow-up visit. From a respiratory status the patient developed a cough in respiratory illness. Clinically he is feeling better although he feels like he needs inhaler. He has had inhalers in the past. Will go ahead and send him Symbicort that he can actually use as needed. He knows to rinse his mouth after he uses it. The patient also has been using the CPAP. He did bring it in he has an old rest med S9 machine that is likely more than 10 years old. The APAP set up 10-12 cm of water. His AHI is down to 0.8 events per hour. This is all very reassuring. He does use it for more than 4 hours a night typically the whole night. The therapy has been very effective beneficial specially with paralyzed diaphragm. The patient does need a replacement machine since her machine is now older than 10 years. Will go ahead and request a replacement machine from his DME company, [facility]. In addition to this he still dealing with significant aches. He did have carpal tunnel surgery in now complaining of a tendinitis of the elbow which is very uncomfortable. The patient is also having some pleuritic discomfort so the chest area. He did have undergo a chest x-ray recently and I did reviewed. Appears that he does have a loose sternal wire from the open heart surgery that he had as a young adult. 05/10/2023 the patient is here for a pulmonary follow-up visit. The patient overall continues have multiple complaints. Breathing though he has been doing well. Continues in his respiratory inhalers with good effect. Also the CPAP therapy has been affecting beneficial. He does use it for more than 4 hours a night. His adherence is 100%. He can not be without it. The patient needs to be able to get supplies from his DME company. I will make sure to do that. Although at this point the machine that he has been using his older than 10 years. We had requested a replacement machine but for some reason he did not get 1. I do believe that for better response to therapy a new machine will be able to be monitor closely and adjusted accordingly. Will go ahead and request the replacement machine at this time from his DME company. Also having issues significant pain. He was evaluated from a rheumatological standpoint. Significant small joint discomfort. Both the risk and also the elbows. The patient has been on the Plaquenil that initially he stopped but then he is going to restart. He was concerned about some of the side effects. In addition to that I give him a short course of prednisone to try to help him with that. He is also having abdominal discomfort. Did have a previous endoscopic biopsy demonstrating the possibility of celiac disease. Therefore, will go ahead and give her some prednisone and also requesting blood work to assess further diagnosis of potential celiac with his underlying diabetes. The patient may benefit from a referral to a dieitian if that i the case. 09/06/2023 the patient is here for pulmonary follow-up visit. The patient overall has been doing fairly well from a respiratory status. He continues to use his respiratory therapy as prescribed. Has not had to use any prednisone or rescue therapy. He continues to also use CPAP at nighttime. CPAP therapy continues to be affecting beneficial. He does uses CPAP more than 4 hours A night. He really can not sleep without the CPAP because of his diaphragmatic injury. However, he has been complaining of worsening cough. Nonproductive in nature. Moderate severity. Affecting sleep. The patient is taking small dose of RON inhibitor. He is going to go ahead and start that to see there is any improvement. Will monitor closely his blood pressure. In addition to that the benzo night may be helpful just subsiding the cough sensation. If he has no better he can call for further evaluation. 01/07/2024 the patient is here for pulmonary follow-up visit. Overall he is having multiple complaints. He is having significant back pains and difficulty sleeping. Breathing is always an issue with dyspnea on exertion. [id number]-[id number] severity. He has been using the CPAP and CPAP continues to be very affecting beneficial for him. He does use it for more than 4 hours a night. He has been getting supplies from the [employer]. In addition to that he was given gabapentin for sleep. It will also help his back issues in therefore did encourage him to use it. I will recently to the pharmacy. In regards of his connective tissue disease is not clear if is manifesting although he does have an elevated double-stranded DNA. He was evaluated by Rheumatology. At this point will keeping the Plaquenil to see if this provides him help. He did have his eyes checked and will continue to have his eyes checked. In continue the low dose of 200 daily. He will continue with current respiratory therapy follow-up in 4 months. He will have a chest x-ray and lumbar x-rays today. 05/08/2024 the patient is here for pulmonary follow-up visit. Overall he is doing better now. Back in the beginning of March he did develop worsening respiratory symptoms flu-like symptoms and was actually diagnosed with RSV. He was in the hospital at [facility]. There he did have a CT scan. I am going to request a report. He was subsequently discharged on antibiotics and prednisone. He now is doing better. Although he did have some achiness in the bilateral back on the lungs. He continues uses CPAP in the CPAP has been affecting beneficial. He also continues to use his respiratory inhalers with good response. Will have him get an x-ray specially since he had this significant infection back in March and also been having significant left hand discomfort will have x-rays as well. Patient will follow-up in 3-4 months. If he has any worsening issues she will call for an earlier assessment. 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 Gender identity: Male Review of Systems Const Denies difficulty sleeping, Denies snoring and Reports weakness ENT Reports no additional complaints and Reports neck pain Card Reports chest pain and Reports dyspnea Resp Reports cough, Reports dyspnea and Denies snoring GI Reports abdominal pain Reports no additional complaints Musc Reports as per HPI, Reports back pain, Reports myalgias, Reports limited range of motion, Reports muscle weakness, Reports neck pain, Reports numbness and Reports radiating pain into limb Neuro Reports numbness and Reports weakness Psych Reports anxiety and Reports depression Physical Exam Vital Signs: Last Vital Signs Pulse 63 05/08/24 09:48 BP 136/74 05/08/24 09:48 Pulse Ox 99 05/08/24 09:48 Oxygen Delivery Method Room Air 05/08/24 09:48 BMI result Body Mass Index 29.1 Const General: alert Neck Neck: Yes normal visual inspection, Yes full ROM and Yes no lymphadenopathy Chest Chest palpation & inspection: normal inspection of the chest Resp Auscultation: no crackles, no rales and diminished lung sounds Cardio Rate: regular rate Rhythm: regular rhythm Heart sounds: S1 normal heart sound present and S2 normal heart sound present GI Palpation (GI): Soft to palpation and nontender Auscultation: normal bowel sounds General: Yes CVA tenderness Back/Spine/Pelvis Back: CVA tenderness Skin General skin exam: rashes and/or lesions noted Extrem General: No clubbing and No cyanosis Assessment & Plan Assessment & Plan (1) Asthma: Code(s): J45.909 - Unspecified asthma, uncomplicated Category: Medical Qualifiers: Asthma complication type: uncomplicated Asthma persistence: persistent Asthma severity: moderate Qualified Code(s): J45.40 - Moderate persistent asthma, uncomplicated (2) BETHEL on CPAP: Code(s): G47.33 - Obstructive sleep apnea (adult) (pediatric); Z99.89 - Dependence on other enabling machines and devices Category: Medical (3) Chronic restrictive lung disease: Code(s): J98.4 - Other disorders of lung Category: Medical (4) Dyspnea: Comment: multifactorial. 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 Code(s): J98.6 - Disorders of diaphragm Category: Medical (6) Lymphadenopathy: Code(s): R59.1 - Generalized enlarged lymph nodes Category: Medical (7) Back pain: Code(s): M54.9 - Dorsalgia, unspecified Category: Medical Qualifiers: Back pain laterality: unspecified Back pain location: low back pain Chronicity: unspecified Sciatica presence: unspecified whether sciatica present Qualified Code(s): M54.50 - Low back pain, unspecified (8) Chest pain: Code(s): R07.9 - Chest pain, unspecified Category: Medical Qualifiers: Chest pain type: other chest pain Qualified Code(s): R07.89 - Other chest pain (9) Pain: Code(s): R52 - Pain, unspecified Category: Medical Plan continue with APAP, continue Symbicort continue Singulair continue plaquenil continue gabapentin benzonates as needed Xrays F/U 4-6 months Orders: Orders XR chest 2V 05/08/24 R07.89 - Other chest pain, R52 - Pain, unspecified XR hand RT min 3V 05/08/24 R07.89 - Other chest pain Medications: Refilled budesonide-formoterol 160-4.5 mcg/actuation (Symbicort) 2 puffs inhalation BID 10.2 grams 11RF 30 days J44.89 - Other specified chronic obstructive pulmonary disease Coding Level of Care Code Est Pt Level 4 (09178) Diagnoses Moderate persistent asthma without complication J45.40 Asthma complication type: uncomplicated Asthma persistence: persistent Asthma severity: moderate BETHEL on CPAP G47.33; Z99.89 Chronic restrictive lung disease J98.4 Dyspnea on exertion R06.00 Dyspnea type: dyspnea on exertion Paralysis, diaphragm J98.6 Lymphadenopathy R59.1 Low back pain, unspecified back pain laterality, unspecified chronicity, unspecified whether sciatica present M54.50 Back pain laterality: unspecified Back pain location: low back pain Chronicity: unspecified Sciatica presence: unspecified whether sciatica present Other chest pain R07.89 Chest pain type: other chest pain Pain R52 Time Spent (min) 16
== END 2024-05-08 10:21 | disposition home or self-care (01) ==
PROVIDERS: PCP Internal Medicine; Visit Provider Hospitalist
DX: J45.40 Moderate persistent asthma, uncomplicated (principal); G47.33 Obstructive sleep apnea (adult) (pediatric); Z99.89 Dependence on other enabling machines and devices; J98.4 Other disorders of lung; J98.6 Disorders of diaphragm; R59.1 Generalized enlarged lymph nodes; M54.50 Low back pain, unspecified; R07.89 Other chest pain; R52 Pain, unspecified
CPT/HCPCS: 99214

== ENCOUNTER → 2024-05-08 10:31 | Outpatient (BNV) | payer OTHER, SELFPAY | PROVIDERS: PCP Internal Medicine; Visit Provider Specialist | DX: R07.9 Chest pain, unspecified (principal) | CPT/HCPCS: 71046 ==

== ENCOUNTER 2024-06-11 13:41 | Outpatient (REF) | payer OTHER, SELFPAY ==
--- NOTE | ~2024-06-11 | US_ITS ---
EXAMINATION: US SCROTUM HISTORY: left testicular mass. COMPARISONS: There are no prior studies for comparison. FINDINGS: Real-time grayscale ultrasound imaging of the scrotum was performed. RIGHT TESTICLE: The right testis measures 4.6 x 1.9 x 2.9 cm and demonstrates normal homogeneous echotexture. No masses are seen. The right testis demonstrates normal color Doppler flow. RIGHT EPIDIDYMIS: Normal in size, shape, and vascularity. There are 2 cysts in the epididymal head measuring 4 x 3 x 4 mm and 4 x 2 x 3 mm. LEFT TESTICLE: The left testis measures 4.1 x 1.8 x 3.1 cm and demonstrates normal homogeneous echotexture. No masses are seen. The left testis demonstrates normal color Doppler flow. LEFT EPIDIDYMIS: Normal in size, shape, and vascularity. There is an epididymal head cyst measuring 4 x 3 x 4 mm. VARICOCELE: None. HYDROCELE: There are small bilateral hydroceles. The left hydrocele demonstrate septations. OTHER COMMENTS: Both testes demonstrate normal color and spectral arterial and venous Doppler wave forms. US/US scrotum IMPRESSION: Bilateral epididymal head cysts as described. Small bilateral hydroceles. A left hydrocele demonstrate septations. Electronically signed by: Wu Aldrich MD 06/11/2024 03:07 PM EDT
--- OUTSIDE RECORDS SUMMARY | 2024-06-11 16:17 | XMS_ITS | Encounter Summary ---
Author Organization [facility] Address [address] [place] [address] Care Team Providers Care Repair Welder Name Role Phone Myrna Clemens MD Primary Care Provider [phone] Reason for Visit * Reason Onset Date Comments RETURNING PHONE CALL 05/18/2024 Encounter Details Date Type Department Care Team (Late st Contact Info) Description 05/18/2024 Telephone Endocrinology - [place] [address] [place] [address] Payton Win PA [address] [place] [address] RETURNING PHONE CALL Social History Tobacco Use Types Packs/Day Years Used Date Smoking Tobacco: Never Smokeless Tobacco: Never Alcohol Use Standard Drinks/Week Comments No 0 (1 standard drink = 0.6 oz pur e alcohol) Sex and Gender Information Value Date Recorded Sex Assigned at Male 03/25/2024 1:00 PM EST Legal Sex Male 4:55 AM EST Gender Identity Male 03/25/2024 1:00 PM EST Sexual Orientation Straight 03/25/2024 1: 00 PM EST documented as of this encounter Progress Notes * Daya Hammer RN - 05/18/2024 2:12 PM EST Answered in result management * Ashley Jaime - 05/18/2024 9:25 AM EST Pt returning missed call from viridiana [facility]ap[facility] lab result encounter from 05/12/24, documented in this encounter Plan of Treatment Upcoming Encounters Date Type Department Care Team (Late st Contact Info) Description 09/02/2024 2:15 PM EDT Office Visit Internal Medicine - [place] 175 [facility] [address] [place] [phone] Farnaz Shipley NP 175 [facility] [address] [place] [address] 11/10/2024 1:15 PM EDT Office Visit Endocrinology [address] [phone] Payton Win PA [address] [place] [address] documented as of this encounter Visit Diagnoses Not on filedocumented in this encounter Care Teams Repair Welder Relationship Specialty Start Date End Date Myrna Clemens MD [address] [phone] PCP - General Internal Medicine 06/30/20 documented as of this encounter
--- OUTSIDE RECORDS SUMMARY | 2024-06-11 16:17 | XMS_ITS | Encounter Summary ---
Author Organization [facility] Address [address] [place] [address] Care Team Providers Care [employer] Name Role Phone Myrna Clemens MD Primary Care Provider [phone] Reason for Visit * Reason Comments Diabetes Encounter Details Date Type Department Care Team (Late st Contact Info) Description 05/12/2024 1:15 PM EST Office Visit Endocrinology - [address] [id number] Payton Win PA [address] [place] [address] Type 2 diabetes mellitus without complication, unspecified whether alf insulin use ([facility]) (Primary Dx) Social History Tobacco Use Types Packs/Day Years [...] PM EST documented as of this encounter Last Filed Vital Signs Vital Sign Reading Time Taken Comments Blood Pressure 120/64 05/12/2024 1:30 PM EST C Pulse 92 05/12/2024 1:30 PM EST Temperature 36.6 ??C (97.9 ??F) 05/12/2024 1:30 PM ES T Respiratory Rate - - Oxygen Saturation 97% 05/12/2024 1:30 PM EST Inhaled Oxygen Concentration - - Weight 75.3 kg (166 lb) 05/12/2024 1:30 PM EST Height 160 cm (5' 3 ) 05/12/2024 1:30 PM EST Body Mass Index 29.41 05/12/2024 1:30 PM EST documented in this encounter Ordered Prescriptions Prescription Sig Dispense Quantity Refills Last Filled Start Date End Date dulaglutide (Trulicity) 1.5 mg/0.5 mL pen injector injection Inject 0.5 mL (1.5 mg total) under the skin every 7 (seven) days. 6 mL 3 05/12/2024 documented in this encounter Progress Notes * Lola Serrano MA - 05/12/2024 1:15 PM EST FSBS - 136 - Non Fasting * JAZMINE Baldwin - 05/12/2024 1:15 PM EST CHIEF COMPLAINT: Diabetes IDENTIFIER: Steev Win is a 49 y.o. old male. HPI: Patient presents to the office as a new patient to the endocrine department for consultation on diabetes. Past medical history of type 2 diabetes, hypertension, depression, asthma, and avascular necrosis of the hip. Type 2 diabetes: Hemoglobin A1c Lab Results Component Value Date HGBA1C 5.5 11/08/2023 Due for lab work He does tell me that he was without Trulicity for 3 weeks. He received it 2 weeks ago Mentions that pharmacy stated that they needed refill. Of note I had sent refill in February with awhole year supply of refills, they should have not been any delays in refills Since his back on Trulicity he states his sugars are back to normal in the 130s. Blood sugar in theoffice 136 He was taking 1.5 Mg dose In the past he was also taking metformin and Ozempic Wt Readings from Last 3 Encounters: 05/12/24 75.3 kg (166 lb) 03/25/24 72.6 kg (160 lb) 03/02/24 73.5 kg (162 lb) ROS: GENERAL: No malaise, significant weight loss or fever HEENT: No changes in hearing or vision, nose bleeds or other nasal problems RESPIRATORY: No cough, wheezing or shortness of breath CARDIOVASCULAR: No chest pain, leg swelling or palpitations GI: No abdominal discomfort, blood in stools or black stools ENDOCRINE: See HPI MUSCULOSKELETAL: No joint pain or swelling, back pain, or muscle pain. NEURO: No persistent headache, syncope, seizures, weakness or numbness PAST MEDICAL HISTORY: Patient Active Problem List Diagnosis Date Noted Left inguinal hernia 09/30/2017 Asthma with COPD ([facility]) 08/27/2017 Depression 01/23/2017 Hypertension 12/11/2016 Hypertriglyceridemia 12/11/2016 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 Obstructive sleep apnea 09/27/2016 Type 2 diabetes mellitus without complication ([facility]) 09/27/2016 Avascular necrosis of bone of hip ([facility]) 06/07/2016 Asthma 05/11/2016 Diverticulosis of intestine 05/11/2016 SOCIAL HISTORY: Social History Tobacco Use Smoking status: Never Smokeless tobacco: Never Substance Use Topics Alcohol use: No FAMILY HISTORY: Family Status Relation Name Status Father Alive Mother Alive No partnership data on file Family History Problem Relation Name Age of Onset Coronary artery disease Father ACTIVE MEDICATIONS: Outpatient Medications Marked as Taking for the 05/12/24 encounter (Office Visit) with JAZMINE Baldwin Medication Sig Dispense Refill acetaminophen (TYLENOL) 500 mg tablet Take 2 tablets (1,000 mg total) by mouth every 8 (eight) hours. 30 tablet 0 albuterol HFA (PROAIR HFA ; PROVENTIL HFA ; VENTOLIN HFA) 90 mcg/actuation inhaler Inhale 2 Puffs into the lungs every 4 hours as needed. B complex tablet Take by mouth. betamethasone, augmented, (DIPROLENE-AF) 0.05 % cream Apply locally twice a day blood sugar diagnostic (FreeStyle Lite Strips) test strip celecoxib (CeleBREX) 200 mg capsule Take 1 capsule (200 mg total) by mouth 2 (two) times a day. 60 each 5 cholecalciferol (VITAMIN D-3) 50 mcg (2,000 unit) tablet Take 1 Tablet by mouth daily. clobetasoL (TEMOVATE) 0.05 % ointment APPLY TO LEGS DOS VECES AL D A CUANDO SEA NECESARIO FOR FLARES, DECREASE SYMPTOMS IMPROVE clonazePAM (KlonoPIN) 1 mg tablet diclofenac (VOLTAREN) 75 mg EC tablet TAKE 1 TABLET BY MOUTH TWICE A DAY WITH FOOD NEEDED FOR PAIN dulaglutide (Trulicity) 1.5 mg/0.5 mL pen injector injection Inject 0.5 mL (1.5 mg total) under theskin every 7 (seven) days. 6 mL 3 ferrous sulfate 325 mg (65 mg elemental iron) tablet Take 1 Tab by mouth daily. FREESTYLE LANCETS MISC gabapentin (NEURONTIN) 400 mg capsule Take 400 mg by mouth at bedtime. gemfibroziL (LOPID) 600 mg tablet Take 1 tablet (600 mg total) by mouth 2 (two) times a day. 180 tablet 1 hydroxychloroquine (PLAQUENIL) 200 mg tablet TOME MARTHA TABLETA TODOS LOS D ibuprofen (ADVIL,MOTRIN) 600 mg tablet Take 1 tablet (600 mg total) by mouth every 8 (eight) hours if needed for moderate pain or fever - temperature GREATER than 38 C (100.4 F). 30 tablet 0 meloxicam (MOBIC) 7.5 mg tablet TAKE 1 TABLET BY MOUTH EVERY DAY montelukast (SINGULAIR) 10 mg tablet TAKE 1 TABLET BY MOUTH AT BEDTIME pantoprazole (PROTONIX) 40 mg EC tablet roflumilast (DALIRESP) 500 mcg tablet Take 500 mcg by mouth daily. rosuvastatin (CRESTOR) 20 mg tablet Take 1 Tab by mouth daily. Symbicort 160-4.5 mcg/actuation inhaler Inhale 2 puffs by mouth 2 (two) times a day. traZODone (DESYREL) 50 mg tablet Take 1 Tab by mouth at bedtime. triamcinolone (KENALOG) 0.025 % cream Apply to affected area 1-2 times a day for 2 weeks. Do not use in face or genital area. [DISCONTINUED] dulaglutide (Trulicity) 1.5 mg/0.5 mL pen injector injection INJECT 1.5 MG INTO THE SKIN ONCE A WEEK. 2 mL 11 [DISCONTINUED] mometasone-formoterol (DULERA 200) 200-5 mcg/actuation inhaler Inhale 1 Puff into the lungs 2 times daily. ALLERGIES: Patient has no known allergies. PHYSICAL EXAM: Blood pressure 120/64, pulse 92, temperature 36.6 ??C (97.9 ??F), temperature source Temporal, height 1.6 m (63 ), weight 75.3 kg (166 lb), SpO2 97%. Body mass index is 29.41 kg/m??. BMI is greater than 25.0 (above the normal range) - see Plan APPEARANCE: Alert and in no acute distress HEART: RRR with normal S1 and S2, no murmurs, no gallops, NECK: no thyroid enlargement, nodules or masses felt. LUNG: clear to auscultation NEURO: Awake, alert and oriented x 3 LABS: Lab Results Component Value Date HGBA1C 5.5 11/08/2023 CHOL 185 05/10/2023 LDL 107 (A) 05/10/2023 HDL 62 05/10/2023 TRIG 84 05/10/2023 Lab Results Component Value Date GLUCOSE 136 05/12/2024 No results found for: TSH IMAGING: IMPRESSION: 1. 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 Patient understands and agrees with this treatment plan.Patient was reminded to call or return to the office if any new or existing problems arise This document was made using voice recognition software. It may contain some errors in grammar or syntax Medication and lab orders: Type 2 diabetes mellitus without complication, unspecified whether alf insulin use (CMS/HCC) (Primary) - POC glucose manually resulted - Hemoglobin A1c; Future - Basic metabolic panel; Future - Lipid panel with reflex to direct LDL; Future - Microalbumin creatinine urine ratio; Future Other orders - dulaglutide (Trulicity) 1.5 mg/0.5 mL pen injector injection; Inject 0.5 mL (1.5 mg total) under the skin every 7 (seven) days. Dispense: 6 mL; Refill: 3 JAZMINE Baldwin on 05/12/2024 at 2:16 PM EST documented in this encounter Plan of Treatment Upcoming Encounters Date Type Department Care Team (Late st Contact Info) Description 09/02/2024 2:15 PM EDT Office Visit Internal Medicine - [address] [place] [address] Farnaz Shipley, LEXX [address] [facility] [address] [place] [address] 11/10/2024 1:15 PM EDT Office Visit Endocrinology [facility] [address] [place] [address] Payton Win PA [address] [place] [address] documented as of this encounter Procedures Procedure Name Priority Date/Time Associated Diagnosis Comments POC GLUCOSE Routine 05/12/2024 1:34 PM EST Type 2 diabetes mellitus without complication, unspecified whether alf insulin use ([facility]) documented in this encounter Results * Microalbumin creatinine urine ratio (05/12/2024 2:17 PM EST) Creatinine, Urine 143.0 mg/dL LAB CHEMISTRY METHOD 05/12/2024 5:41 PM EST [facility] Microalb, Ur 21.0 0.0 - 29.0 mg/L LAB CHEMISTRY METHOD 05/12/2024 5:41 PM EST [facility] Microalb/Creat Ratio 15 <30 mg/g creat LAB CHEMISTRY METHOD 05/12/2024 5:41 PM EST [facility] Urine Urine specimen from urethra / Unknown Non-blood Collection / Unknown 05/12/2024 2:17 PM EST 05/12/2024 2:17 PM EST us Payton LUCERO LAB URINE ORDERABLES Final Result [facility] [address] [place] [address], [place] [phone] * (ABNORMAL) Lipid panel with reflex to direct LDL (05/12/2024 2:17 PM EST) Cholesterol 209(H) 0 - 200 mg/dL LAB CHEMISTRY METHOD 05/12/2024 5:23 PM [facility] Triglycerides 96 0 - 150 mg/dL LAB CHEMISTRY METHOD 05/12/2024 5:23 PM [facility] HDL 76 >=40 mg/dL LAB CHEMISTRY METHOD 05/12/2024 5:23 PM [facility] LDL Calculated 114(H) 0 - 100 mg/dL LAB CHEMISTRY METHOD 05/12/2024 5:23 PM EST [facility] VLDL Cholesterol Robert 19.2 mg/dL LAB CHEMISTRY METHOD 05/12/2024 5:23 PM [facility] Non HDL Chol. (LDL+VLDL) 133 <145 mg/dL LAB CHEMISTRY METHOD 05/12/2024 5:23 PM [facility] Chol/HDL Ratio 2.8 0.0 - 4.4 LAB CHEMISTRY METHOD 05/12/2024 5:23 PM [facility] Blood Venous blood specimen / Unknown Venipuncture / Unknown 05/12/2024 2:17 PM EST 05/12/2024 2:17 PM EST us Payton LUCERO LAB BLOOD ORDERABLES Final Result [facility] [address] [place] [address], * (ABNORMAL) Basic metabolic panel (05/12/2024 2:17 PM EST) Pathologist [facility] Sodium 143 133 - 145 mmol/L LAB CHEMISTRY METHOD 05/12/2024 5:20 PM [facility] Potassium 3.5 3.5 - 5.5 mmol/L LAB CHEMISTRY METHOD 05/12/2024 5:20 PM [facility] Chloride 108 96 - 110 mmol/L LAB CHEMISTRY METHOD 05/12/2024 5:20 PM [facility] CO2 27 21 - 32 mmol/L LAB CHEMISTRY METHOD 05/12/2024 5:20 PM [facility] Anion Gap 8 3 - 11 LAB CHEMISTRY METHOD 05/12/2024 5:20 PM [facility] Glucose 105(H) 70 - 100 mg/dL LAB CHEMISTRY METHOD 05/12/2024 5:20 PM EST [facility] BUN 11 5 - 25 mg/dL LAB CHEMISTRY METHOD 05/12/2024 5:20 PM [facility] Creatinine 0.92 0.70 - 1.30 mg/dL LAB CHEMISTRY METHOD 05/12/2024 5:20 PM [facility] eGFR 103 >=60 mL/min/1. 73m2 LAB CHEMISTRY METHOD 05/12/2024 5:20 PM [facility] Comment:Calculation based on the??Chronic Kidney Disease Epidemiology Collaboration (CKD-EPI) equation refit??without adjustment for race. BUN/Creatinine Ratio 12.0 LAB CHEMISTRY METHOD 05/12/2024 5:20 PM [facility] Calcium 9.1 8.5 - 10.5 mg/dL LAB CHEMISTRY METHOD 05/12/2024 5:20 PM [facility] Blood Venous blood specimen / Unknown Venipuncture / Unknown 05/12/2024 2:17 PM EST 05/12/2024 2:17 PM EST us Payton LUCERO LAB BLOOD ORDERABLES Final Result [facility] [address] [place] [address], * Hemoglobin A1c (05/12/2024 2:17 PM EST) Hemoglobin A1C 5.4 <6.5 % LAB CHEMISTRY METHOD 05/12/2024 9:24 PM EST [facility] Mean Bld Glu Estim. 108 mg/dL LAB CHEMISTRY METHOD 05/12/2024 9:24 PM EST [facility] Blood Venous blood specimen / Unknown Venipuncture / Unknown 05/12/2024 2:17 PM EST 05/12/2024 2:17 PM EST us Payton LUCERO LAB BLOOD ORDERABLES Final Result [facility] [address] [place] [address], [place] [phone] * POC glucose manually resulted (05/12/2024 1:34 PM EST) [facility] Signature Glucose POC 136 mg/dL Comment:Non Fasting Blood Capillary blood specimen / Unknown 05/12/2024 1:34 PM EST us Payton LUCERO POINT OF CARE TEST ENTER/ED IT ORDERABLES Final Result documented in this encounter Visit Diagnoses Diagnosis Type 2 diabetes mellitus without complication, 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 Duplicate order 05/12/2024 fluticasone furoate-vilanteroL (Breo Ellipta) 100-25 mcg/dose inhaler Alternate therapy 08/09/2020 05/12/2024 folic acid (FOLVITE) 400 mcg tablet Take 1 Tab by mouth daily. Therapy completed 10/07/2018 05/12/2024 mometasone-formoterol (DULERA 200) 200-5 mcg/actuation inhaler Inhale 1 Puff into the lungs 2 times daily. Alternate therapy 05/12/2024 predniSONE (DELTASONE) 20 mg tablet Take 1 tablet (20 mg total) by mouth 1 (one) time each day. Therapy completed 03/25/2024 05/12/2024 tacrolimus (Protopic) 0.1 % ointment Apply sparingly twice a day to back of legs and inside lower legs Therapy completed 02/09/2021 05/12/2024 dulaglutide (Trulicity) 1.5 mg/0.5 mL pen injector injection INJECT 1.5 MG INTO THE SKIN ONCE A WEEK. Reorder 02/25/2024 05/12/2024 documented as of this encounter Historical Medications * This list may reflect changes made after this encounter. Symbicort 160-4.5 mcg/actuation inhaler Inhale 2 puffs by mouth 2 (two) times a day. 05/08/2024 added in this encounter Care Teams [employer] Relationship Specialty Start Date End Date Myrna Clemens MD [address] [place] [id number] PCP - General Internal Medicine 06/30/20 documented as of this encounter
--- OUTSIDE RECORDS SUMMARY | 2024-06-11 16:17 | XMS_ITS | Clinical Summary ---
Author Organization [facility] Address [address] [place] [address] Phone Care Team Providers Care Almond Blancher Hand Name Role Phone Myrna Clemens MD Primary Care Provider Allergies No known active allergies Medications albuterol HFA (PROAIR HFA ; PROVENTIL HFA ; VENTOLIN HFA) 90 mcg/actuation inhaler Inhale 2 Puffs into the lungs every 4 hours as needed. Active B complex tablet Take by mouth. Active betamethasone, augmented, (DIPROLENE-AF) 0.05 % cream Apply locally twice a day 1 Active cholecalciferol (VITAMIN D-3) 50 mcg (2,000 unit) tablet Take 1 Tablet by mouth daily. 4 Active clobetasoL (TEMOVATE) 0.05 % ointment APPLY TO [...] TABLET BY MOUTH EVERY DAY 1 Active montelukast (SINGULAIR) 10 mg tablet TAKE 1 TABLET BY MOUTH AT BEDTIME 0 Active pantoprazole (PROTONIX) 40 mg EC tablet 9 Active PARoxetine (PAXIL) 30 mg tablet Take 1 tablet (30 mg total) by mouth 1 (one) time each day in the morning. 9 Active roflumilast (DALIRESP) 500 mcg tablet Take [...] in face or genital area. 9 Active celecoxib (CeleBREX) 200 mg capsuleIndication s:Fibromyalgia Take 1 capsule (200 mg total) by mouth 2 (two) times a day. 60 each 5 4 025 Active gemfibroziL (LOPID) 600 mg tabletIndications :Type 2 diabetes mellitus without complications Take 1 tablet (600 mg total) by mouth 2 (two) times a day. 180 tablet 1 4 Active acetaminophen (TYLENOL) 500 mg tablet Take 2 tablets (1,000 mg total) by mouth every 8 (eight) hours. 30 tablet 5 Active ibuprofen (ADVIL,MOTRIN) 600 mg tablet Take 1 tablet (600 mg total) by mouth every 8 (eight) hours if needed for moderate pain or fever - temperature GREATER than 38 C (100.4 F). 30 tablet 5 Active dulaglutide (Trulicity) 1.5 mg/0.5 mL pen injector injection Inject 0.5 mL (1.5 mg total) under the skin every 7 (seven) days. 6 mL 3 5 Active Symbicort 160-4.5 mcg/actuation inhaler Inhale 2 puffs by mouth 2 (two) times a day. 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 Obstructive sleep apnea 09/27/2016 Overview (01/21/2024): mild LAYNE 6 SMS Home Sleep Apnea Test: Date 09/16/2018; Wt [...] Encounters Date Type Department Care Team Description 05/18/2024 Telephone [address]ocr[address] [address] Payton Win PA RETURNING PHONE CALL 05/12/2024 1:15 PM EST Office Visit Endocrinology - [address] [address] Payton Win PA Type 2 diabetes mellitus without complication, unspecified whether oil heaterman insulin use ([facility]) (Primary Dx) 03/25/2024 6:35 PM EST - 03/25/2024 11:06 PM EST Emergency [facility] Emergency [address] [place] [address] Shortness of breath (Primary Dx); Pneumonia due to respiratory syncytial virus (RSV) Discharge Disposition: Home or Self Care from Last 3 Months Immunizations Name Administration [...] Mediastinal malignancy excision OTHER SURGICAL HISTORY PROCEDURE: CO UNLISTED PROCEDURE DIAPHRAGM Medical History Medical History Date Comments Depression 01/23/2017 DX:Depression History of testicular cancer 01/23/2017 DX: History of testicular cancer Asthma 05/11/2016 DX:Asthma Avascular necrosis of bone o f hip (CMS/HCC) 06/07/2016 DX:Avascular necrosis of bon e of hip (HCC) 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 Diverticulosis of intestine 05/11/2016 DX:D iverticulosis of intestine History of renal calculi 12/30/2015 DX:Hist ory of renal calculi Hypertension 12/11/2016 DX:Hypertension Hypertriglyceridemia 12/11/2016 DX:Hypertri glyceridemia Obstructive sleep apnea syndrome 09/27/2016 DX:Obstructive sleep apnea syndrome Type 2 diabetes mellitus wit hout complication 09/27/2016 DX:Type 2 diabetes mellitus without complication (HCC) History of malignant neoplas m of mediastinum [...] 05/12/2024 1:30 PM ES T Respiratory Rate 17 03/25/2024 8:33 PM EST Oxygen Saturation 97% 05/12/2024 1:30 PM EST Inhaled Oxygen Concentration - - Weight 75.3 kg (166 lb) 05/12/2024 1:30 PM EST Height 160 cm (5' 3 ) 05/12/2024 1:30 PM EST Body Mass Index 29.41 05/12/2024 1:30 PM EST Plan of Treatment Upcoming Encounters Date Type Department Care Team (Late st Contact Info) Description 09/02/2024 2:15 PM EDT Office Visit Internal Medicine - [place] [address] [facility] [address] [place] [address] Farnaz Shipley NP [address] [facility] [address] [place] [address] 11/10/2024 1:15 PM EDT Office Visit Endocrinology [facility] [address] [place] [address] Payton Win PA [address] [place] [address] Health Maintenance Due Date Last Done Comments [...] Influencers of Health Screening 02/25/2022 COVID-19 Vaccine ( season) 2023 03/29/2022, 08/03/2020, 07/06/2020 Influenza Vaccine (#1) 2023 12/27/2017, 2016 Diabetes: Blood Sugar Control Test (HGBA1C) 11/09/2024 05/12/2024, 11/08/2023, 11/08/2023 Diabetes: Annual Retina Eye Exam 02/25/2025 02/26/2024, 04/18/2023 Diabetes: Annual Urine Albumin-Creatinine Ratio (uACR) 05/12/2025 05/12/2024, 05/10/2023 Diabetes: Annual GFR (Glomerular Filtration Rate) 05/12/2025 05/12/2024, 03/25/2024, 11/08/2023, Additional history exists Hypertension/CHF/CAD Annual BMP Blood Test 05/12/2025 05/12/2024, 03/25/2024, 11/08/2023, Additional history exists DTaP,Tdap,and Td Vaccines (2 - Td or Tdap) 12/01/2025 12/02/2015 Cholesterol Screening (Lipid Panel) 05/12/2029 05/12/2024, 05/10/2023 HIB Vaccines Aged Out No longer [...] 20 months Aged Out No longer eligible based on patient's age to complete this topic Varicella Vaccines Aged Out No longer eligible based on patient's age to complete this topic Procedures Procedure Name Priority Date/Time Associated Diagnosis Comments LIPID PANEL WITH REFLEX TO DIRECT LDL Routine 05/12/2024 2:17 PM EST Type 2 diabetes mellitus without complication, unspecified whether fpc insulin use ([facility]) BASIC METABOLIC PANEL Routine 05/12/2024 2:17 PM EST Type 2 diabetes mellitus without complication, unspecified whether oil heaterman insulin use ([facility]) HEMOGLOBIN A1C Routine 05/12/2024 2:17 PM EST Type 2 diabetes mellitus without complication, unspecified whether oil heaterman insulin use ([facility]) MICROALBUMIN CREATININE URINE RATIO Routine 05/12/2024 2:17 PM EST Type 2 diabetes mellitus without complication, unspecified whether oil heaterman insulin use ([facility]) POC GLUCOSE Routine 05/12/2024 1:34 PM EST Type 2 diabetes mellitus without complication, unspecified whether fpc insulin use ([facility]) EXTERNAL XRAY REPORT 05/08/2024 EXTERNAL XRAY REPORT 05/08/2024 CT ANGIO CHEST WO AND/OR W CONTRAST [...] EST ECG ANNOTATED 03/25/2024 ECG ANNOTATED 03/25/2024 DIABETES EYE EXAM Routine 04/18/2023 from Last 3 Months or Most Recently Relevant to Health Maintenance Results * (ABNORMAL) Lipid panel with reflex to direct LDL (05/12/2024 2:17 PM EST) Cholesterol 209(H) 0 - 200 mg/dL LAB CHEMISTRY METHOD 05/12/2024 5:23 PM EST [facility] Triglycerides 96 0 - 150 mg/dL LAB CHEMISTRY METHOD 05/12/2024 5:23 PM EST [facility] HDL 76 >=40 mg/dL LAB CHEMISTRY METHOD 05/12/2024 5:23 PM EST [facility] LDL Calculated 114(H) 0 - 100 mg/dL LAB CHEMISTRY METHOD 05/12/2024 5:23 PM EST [facility] VLDL Cholesterol Robert 19.2 mg/dL LAB CHEMISTRY METHOD 05/12/2024 5:23 PM EST [facility] Non HDL Chol. (LDL+VLDL) 133 <145 mg/dL LAB CHEMISTRY METHOD 05/12/2024 5:23 PM EST [facility] Chol/HDL Ratio 2.8 0.0 - 4.4 LAB CHEMISTRY METHOD 05/12/2024 5:23 PM EST [facility] Blood Venous blood specimen / Unknown Venipuncture / Unknown 05/12/2024 2:17 PM EST 05/12/2024 2:17 PM EST us Payton LUCERO LAB BLOOD ORDERABLES Final Result [facility] [address] [place] [address], * Microalbumin creatinine urine ratio (05/12/2024 2:17 PM EST) Creatinine, Urine 143.0 mg/dL LAB CHEMISTRY METHOD 05/12/2024 5:41 PM EST [facility] Microalb, Ur 21.0 0.0 - 29.0 mg/L LAB CHEMISTRY METHOD 05/12/2024 5:41 PM EST [facility] Microalb/Creat Ratio 15 <30 mg/g creat LAB CHEMISTRY METHOD 05/12/2024 5:41 PM EST [facility] Urine Urine specimen from urethra / Unknown Non-blood Collection / Unknown 05/12/2024 2:17 PM EST 05/12/2024 2:17 PM EST Payton LUCERO LAB URINE ORDERABLES Final Result Performing Organization Address [facility]/ZIP Co de Phone Number [facility] [address] [place] [address], [place] [phone] * Hemoglobin A1c (05/12/2024 2:17 PM EST) Hemoglobin A1C 5.4 <6.5 % LAB CHEMISTRY METHOD 05/12/2024 9:24 PM EST [facility] Mean Bld Glu Estim. 108 mg/dL LAB CHEMISTRY METHOD 05/12/2024 9:24 PM EST [facility] Blood Venous blood specimen / Unknown Venipuncture / Unknown 05/12/2024 2:17 PM EST 05/12/2024 2:17 PM EST Payton LUCERO LAB BLOOD ORDERABLES Final Result [facility] [address] [place] [address], [place] [phone] * (ABNORMAL) Basic metabolic panel (05/12/2024 2:17 PM EST) Sodium 143 133 - 145 mmol/L LAB CHEMISTRY METHOD 05/12/2024 5:20 PM EST [facility] Potassium 3.5 3.5 - 5.5 mmol/L LAB CHEMISTRY METHOD 05/12/2024 5:20 PM [facility] Chloride 108 96 - 110 mmol/L LAB CHEMISTRY METHOD 05/12/2024 5:20 PM [facility] CO2 27 21 - 32 mmol/L LAB CHEMISTRY METHOD 05/12/2024 5:20 PM [facility] Anion Gap 8 3 - 11 LAB CHEMISTRY METHOD 05/12/2024 5:20 PM [facility] Glucose 105(H) 70 - 100 mg/dL LAB CHEMISTRY METHOD 05/12/2024 5:20 PM [facility] BUN 11 5 - 25 mg/dL LAB CHEMISTRY METHOD 05/12/2024 5:20 PM [facility] Creatinine 0.92 0.70 - 1.30 mg/dL LAB CHEMISTRY METHOD 05/12/2024 5:20 PM [facility] eGFR 103 >=60 mL/min/1. 73m2 LAB CHEMISTRY METHOD 05/12/2024 5:20 PM [facility] Comment:Calculation based on the??Chronic Kidney Disease Epidemiology Collaboration (CKD-EPI) equation refit??without adjustment for race. BUN/Creatinine Ratio 12.0 LAB CHEMISTRY METHOD 05/12/2024 5:20 PM [facility] Calcium 9.1 8.5 - 10.5 mg/dL LAB CHEMISTRY METHOD 05/12/2024 5:20 PM [facility] Blood Venous blood specimen / Unknown Venipuncture / Unknown 05/12/2024 2:17 PM EST 05/12/2024 2:17 PM EST us Payton LUCERO LAB BLOOD ORDERABLES Final Result [facility] [address] [place] [address], [place] [phone] * POC glucose manually resulted (05/12/2024 1:34 PM EST) Glucose POC 136 mg/dL Comment:Non Fasting Blood Capillary blood specimen / Unknown 05/12/2024 1:34 PM EST Payton LUCERO POINT OF CARE TEST ENTER/ED IT ORDERABLES Final Result * External Xray Report (05/08/2024) Only the most recent of2 resultswithin the time period is included. Anatomical Region Laterality Modality Radiographic Christel ging Provider [facility] IMG XR PROCEDURES Final Result * CT Angio Chest wo and/or w [...] Espino MD on 03/25/2024 22:05:59 Jason LUCERO [facility] [place] PROCEDURES Final Result * (ABNORMAL) Respiratory virus panel molecular study (03/25/2024 8:35 PM EST) Pathologist [facility] Adenovirus Detection by PCR Not Detected Not Detected LAB MICROBIOLOGY METHOD 03/25/2024 9:40 PM EST [facility] Influenza A PCR Not Detected Not Detected LAB MICROBIOLOGY METHOD 03/25/2024 9:40 PM [facility] Influenza B PCR Not Detected Not Detected LAB MICROBIOLOGY METHOD 03/25/2024 9:40 PM [facility] Coronavirus 229E Not Detected Not Detected LAB MICROBIOLOGY METHOD 03/25/2024 9:40 PM [facility] Coronavirus HKU1 Not Detected Not Detected LAB MICROBIOLOGY METHOD 03/25/2024 9:40 PM EST [facility] Coronavirus OC43 Not Detected Not Detected LAB MICROBIOLOGY METHOD 03/25/2024 9:40 PM EST [facility] Coronavirus NL63 Not Detected Not Detected LAB MICROBIOLOGY METHOD 03/25/2024 9:40 PM [facility] Parainfluenza Virus 1 Not Detected Not Detected LAB MICROBIOLOGY METHOD 03/25/2024 9:40 PM [facility] Parainfluenza Virus 2 Not Detected Not Detected LAB MICROBIOLOGY METHOD 03/25/2024 9:40 PM [facility] Parainfluenza Virus 3 Not Detected Not Detected LAB MICROBIOLOGY METHOD 03/25/2024 9:40 PM [facility] Parainfluenza Virus 4 Not Detected Not Detected LAB MICROBIOLOGY METHOD 03/25/2024 9:40 PM [facility] RSV PCR Detected(A ) Not Detected LAB MICROBIOLOGY METHOD 03/25/2024 9:40 PM EST [facility] Human Metapneumovirus A and B Not Detected Not Detected LAB MICROBIOLOGY METHOD 03/25/2024 9:40 PM [facility] Rhinovirus/Entero virus Not Detected Not Detected LAB MICROBIOLOGY METHOD 03/25/2024 9:40 PM [facility] Bordetella pertussis Not Detected Not Detected LAB MICROBIOLOGY METHOD 03/25/2024 9:40 PM [facility] Bordetella parapertussis Not Detected Not Detected LAB MICROBIOLOGY METHOD 03/25/2024 9:40 PM [facility] Mycoplasma pneumo by PCR Not Detected Not Detected LAB MICROBIOLOGY METHOD 03/25/2024 9:40 PM [facility] Chlamydia pneumoniae Not Detected Not Detected LAB MICROBIOLOGY METHOD 03/25/2024 9:40 PM [facility] SARS COV-2 Not Detected Not Detected LAB MICROBIOLOGY METHOD 03/25/2024 9:40 PM [facility] Swab Both anterior nares / Unknown Non-blood Collection / Unknown 03/25/2024 8:35 PM EST 03/25/2024 8:50 PM EST Narrative [facility] - 03/25/2024 9:40 PM EST Testing was performed using the [employer] Respiratory Pathogen PCR Assay. All results must [...] that are below the limit of detection. Jason LUCERO LAB MICROBIOLOGY - GENERAL ORDER VENTURA Final Result Performing Organization Address City/[facility]/ZIP Co de Phone Number [facility] [address] [place] [address], [place] [phone] * ECG 12 lead (03/25/2024 2:38 PM EST) Only the most recent of2 resultswithin the time period is included. Ventricular Rate ECG 94 BPM GEMUSE Atrial Rate 94 BPM GEMUSE P-R Interval 136 ms GEMUSE QRS Duration 66 ms GEMUSE Q-T Interval 352 ms GEMUSE QTc 440 ms GEMUSE P Wave Logan 73 degrees GEMUSE R Logan 7 degrees GEMUSE T Logan 44 degrees GEMUSE ECG Interpretation Normal sinus rhythm Nonspecific T wave abnormality Abnormal ECG When compared with ECG of 25-MAR-2024 13:05, (unconfirmed) No significant change was found Confirmed by BRITTANY CHURCHILL ([id number]) on 03/26/2024 5:11:01 PM GEMUSE 03/25/2024 2:38 PM EST 03/26/2024 5:11 PM EST Corona Hale DO ECG ORDERABLES Final Result Performing Organization Address City/[facility]/ZIP Co de Phone Number GEMUSE * Troponin I high sensitivity (03/25/2024 2:21 PM EST) Only the most recent of2 resultswithin the time period is included. High Sensitivity Troponin I 4 <=79 ng/L LAB CHEMISTRY METHOD 03/25/2024 3:08 PM EST [facility] Blood Venous blood specimen / Unknown Venipuncture / Unknown 03/25/2024 2:21 PM EST 03/25/2024 2:44 PM EST Narrative [facility] - 03/25/2024 3:08 PM EST High levels of biotin in samples may falsely decrease hsTroponin values. ??Use caution when interpreting hsTroponin results in patients taking biotin who exhibit renal impairment (eGFR <60) or in patients taking more than 20 mg/day of biotin. us Corona Hale DO LAB BLOOD ORDERABLES Final Res ult [facility] [address] [place] [address], [place] [phone] * XR Chest 2 Views (03/25/2024 1:16 [...] Signed Date: 03/25/2024 13:35 ET Workstation ID: [id number] Transcribed By: Self Edit Transcribed Date: 03/25/2024 [...] Signed Date: 03/25/2024 13:35 ET Workstation ID: [id number] Transcribed By: Self Edit Transcribed Date: 03/25/2024 13:33 ET Corona Hale DO IMG XR PROCEDURES Final Result * (ABNORMAL) CBC auto differential (03/25/2024 12:56 PM EST) WBC 5.6 4.8 - 10.8 K/mcL LAB HEMETOLOGY METHOD 03/25/2024 1:27 PM [facility] RBC 4.60 4.50 - 5.50 M/mcL LAB HEMETOLOGY METHOD 03/25/2024 1:27 PM [facility] Hemoglobin 12.8(L) 13.5 - 17.5 g/dL LAB HEMETOLOGY METHOD 03/25/2024 1:27 PM [facility] Hematocrit 40.3(L) 42.0 - 54.0 % LAB HEMETOLOGY METHOD 03/25/2024 1:27 PM [facility] MCV 88.0 79.0 - 98.0 FL LAB HEMETOLOGY METHOD 03/25/2024 1:27 PM [facility] MCH 27.9 27.0 - 32.0 pcg LAB HEMETOLOGY METHOD 03/25/2024 1:27 PM [facility] MCHC 31.8(L) 32.0 - 37.0 g/dL LAB HEMETOLOGY METHOD 03/25/2024 1:27 PM [facility] RDW 12.3 11.0 - 15.0 % LAB HEMETOLOGY METHOD 03/25/2024 1:27 PM [facility] Platelets 157 130 - 400 K/mcL LAB HEMETOLOGY METHOD 03/25/2024 1:27 PM [facility] MPV 11.4(H) 7.0 - 11.0 FL LAB HEMETOLOGY METHOD 03/25/2024 1:27 PM [facility] NRBC 0.0 <1.0 % LAB HEMETOLOGY METHOD 03/25/2024 1:27 PM [facility] NRBC Absolute 0.00 <0.10 K/mcL LAB HEMETOLOGY METHOD 03/25/2024 1:27 PM [facility] Neutrophils Relative 72.9 % LAB HEMETOLOGY METHOD 03/25/2024 1:27 PM [facility] Lymphocytes Relative 15.8 % LAB HEMETOLOGY METHOD 03/25/2024 1:27 PM [facility] Monocytes Relative 7.3 % LAB HEMETOLOGY METHOD 03/25/2024 1:27 PM [facility] Eosinophils Relative 3.0 % LAB HEMETOLOGY METHOD 03/25/2024 1:27 PM [facility] Basophils Relative 0.5 % LAB HEMETOLOGY METHOD 03/25/2024 1:27 PM EST [facility] Immature Granulocytes Relative 0.5 % LAB HEMETOLOGY METHOD 03/25/2024 1:27 PM EST [facility] Neutrophils Absolute 4.10 1.50 - 7.00 K/mcL LAB HEMETOLOGY METHOD 03/25/2024 1:27 PM [facility] Lymphocytes Absolute 0.89(L) 1.00 - 5.00 K/mcL LAB HEMETOLOGY METHOD 03/25/2024 1:27 PM EST [facility] Monocytes Absolute 0.41 0.20 - 1.00 K/mcL LAB HEMETOLOGY METHOD 03/25/2024 1:27 PM EST [facility] Eosinophils Absolute 0.17 0.00 - 0.50 K/mcL LAB HEMETOLOGY METHOD 03/25/2024 1:27 PM [facility] Basophils Absolute 0.03 0.00 - 0.20 K/mcL LAB HEMETOLOGY METHOD 03/25/2024 1:27 PM EST [facility] Immature Granulocytes Absolute 0.03 0.00 - 0.03 K/mcL LAB HEMETOLOGY METHOD 03/25/2024 1:27 PM EST [facility] Blood Venous blood specimen / Unknown 03/25/2024 12:56 PM EST 03/25/2024 1:11 PM EST us Corona Hale DO LAB BLOOD ORDERABLES Final Res ult [facility]) [facility] [address] [place] [address], * B-type natriuretic peptide (03/25/2024 12:56 PM EST) BNP 19 <=100 pcg/mL LAB CHEMISTRY METHOD 03/25/2024 1:55 PM EST [facility] Blood Venous blood specimen / Unknown 03/25/2024 12:56 PM EST 03/25/2024 1:11 PM EST us Corona Hale DO LAB BLOOD ORDERABLES Final Res ult Performing Organization Address [facility]/ZIP Co de Phone Number [facility] [address] [place] [address], [place] [phone] * Magnesium (03/25/2024 12:56 PM EST) Pathologist [facility] Magnesium 2.1 1.9 - 2.6 mg/dL LAB CHEMISTRY METHOD 03/25/2024 1:42 PM EST [facility] Blood Venous blood specimen / Unknown 03/25/2024 12:56 PM EST 03/25/2024 1:11 PM EST us Corona Hale DO LAB BLOOD ORDERABLES Final Res ult Performing Organization Address [facility]/ZIP Co de Phone Number [facility] [address] [place] [address], [place] [phone] * Lipase (03/25/2024 12:56 PM EST) [facility] Lipase 42 13 - 75 unit/L LAB CHEMISTRY METHOD 03/25/2024 1:44 PM EST [facility] Blood Venous blood specimen / Unknown 03/25/2024 12:56 PM EST 03/25/2024 1:11 PM EST us Corona Hale DO LAB BLOOD ORDERABLES Final Res ult Performing Organization Address City/[facility]/ZIP Co de Phone Number [facility] [address] [place] [address], [place] [phone] * (ABNORMAL) Comprehensive metabolic panel (03/25/2024 12:56 PM EST) Sodium 140 133 - 145 mmol/L LAB CHEMISTRY METHOD 03/25/2024 1:44 PM [facility] Potassium 3.5 3.5 - 5.5 mmol/L LAB CHEMISTRY METHOD 03/25/2024 1:44 PM [facility] Chloride 106 96 - 110 mmol/L LAB CHEMISTRY METHOD 03/25/2024 1:44 PM [facility] CO2 27 21 - 32 mmol/L LAB CHEMISTRY METHOD 03/25/2024 1:44 PM [facility] Anion Gap 7 3 - 11 LAB CHEMISTRY METHOD 03/25/2024 1:44 PM [facility] Glucose 143(H) 70 - 100 mg/dL LAB CHEMISTRY METHOD 03/25/2024 1:44 PM [facility] BUN 11 5 - 25 mg/dL LAB CHEMISTRY METHOD 03/25/2024 1:44 PM [facility] Creatinine 1.03 0.70 - 1.30 mg/dL LAB CHEMISTRY METHOD 03/25/2024 1:44 PM [facility] eGFR 90 >=60 mL/min/1. 73m2 LAB CHEMISTRY METHOD 03/25/2024 1:44 PM [facility] Comment:Calculation based on the??Chronic Kidney Disease Epidemiology Collaboration (CKD-EPI) equation refit??without adjustment for race. BUN/Creatinine Ratio 10.7 LAB CHEMISTRY METHOD 03/25/2024 1:44 PM [facility] Calcium 9.0 8.5 - 10.5 mg/dL LAB CHEMISTRY METHOD 03/25/2024 1:44 PM [facility] AST (SGOT) 26 10 - 42 unit/L LAB CHEMISTRY METHOD 03/25/2024 1:44 PM [facility] ALT (SGPT) 35 10 - 60 unit/L LAB CHEMISTRY METHOD 03/25/2024 1:44 PM [facility] Alkaline Phosphatase 82 42 - 121 unit/L LAB CHEMISTRY METHOD 03/25/2024 1:44 PM [facility] Total Protein 7.7 6.0 - 8.0 g/dL LAB CHEMISTRY METHOD 03/25/2024 1:44 PM EST [facility] Albumin 4.4 3.2 - 5.0 g/dL LAB CHEMISTRY METHOD 03/25/2024 1:44 PM EST [facility] Total Bilirubin 0.9 0.0 - 1.4 mg/dL LAB CHEMISTRY METHOD 03/25/2024 1:44 PM EST [facility] Blood Venous blood specimen / Unknown 03/25/2024 12:56 PM EST 03/25/2024 1:11 PM EST Corona Hale DO LAB BLOOD ORDERABLES Final Res ult [facility] [address] [place] [address], [place] [phone] * ECG-Annotated (03/25/2024) Only the most recent of2 resultswithin the time period is included. us Provider Onbase MD ECG ORDERABLES Final Result * Diabetes Eye Exam (04/18/2023) Diabetes: Annual Retina Eye Exam Abstracted Historical Provider MD HEALTH MAINTENANCE Final Result from Last 3 Months or Most Recently Relevant to Health Maintenance Insurance [employer] Care Teams Almond Blancher Hand Relationship Specialty Start Date End Date Myrna Clemens MD [address] [place] [phone] PCP - General Internal Medicine 06/30/20
== END 2024-06-11 13:42 | disposition home or self-care (01) ==
LOC: HO.US 13:41
PROVIDERS: PCP Internal Medicine; Visit Provider Internal Medicine Medical Oncology
DX: N50.89 Other specified disorders of the male genital organs (principal)
CPT/HCPCS: 76870

== ENCOUNTER → 2024-06-11 13:43 | Outpatient (BNV) | payer OTHER, SELFPAY | PROVIDERS: PCP Internal Medicine; Visit Provider Radiology Diagnostic Radiology | DX: N43.2 Other hydrocele (principal) | CPT/HCPCS: 76870; 93976 ==

== ENCOUNTER 2024-06-26 12:56 | Outpatient (AMB) | payer OTHER, SELFPAY ==
--- NOTE | 2024-06-26 13:03 | A.OFFVIS_ITS ---
Vital Signs 06/26/24 13:04 Height 5 ft 3 in Weight 168 lb 10.458 oz BMI 29.9 BP 126/70 Blood Pressure Location Rt brachial Position Sitting Pulse 101 H Pulse Source Pulse Oximeter Pulse Oximetry (%) 97 Oxygen Delivery Method Room Air Intake Visit Reasons: Asthma Allergies No Known Allergies Allergy (Verified 05/21/24 10:31) HPI Comments Details: The patient is 49 y/o man with a history of asthma in addition to obstructive sleep apnea. We did switch his mask the last visit and is tolerating it much better. He is also getting supplies regularly now. The CPAP therapy continues to be affecting beneficial. He is using more than 4 hours a night. His asthma appears to be in better control. He continues to use his respiratory regimen including his allergy medicine. He is not using the short-acting beta agonist more than twice a week. He has been complaining of other issues including arthralgias and what appears to be neuropathic pain. He is having hard time sleeping with it. Therefore affecting his daytime drowsiness. He does have a prescription of gabapentin but he is not using it at this time as prescribed. I requested that I can at least use it at nighttime to can help him sleep in also helping with the pain. 12/29/2021 the patient is here for a pulmonary follow-up visit. Breathing has been stable with his current respiratory therapy. The CPAP therapy has been affecting beneficial. He continues using more than 4 hours a night. He has been getting supplies readily available. He still dealing with significant back pain. He had an appoint with pain management but because a history of cancer does felt that he needs to follow up closely with Oncology in case this is metastatic disease. The patient needs to follow-up with oncology. He was going to [facility] for his oncological care. He will Call for an appointment. In the meantime he is having hard time sleeping far because of the back pain and also because insomnia. Therefore will go ahead and increase his gabapentin to a more effective dose at nighttime. He is currently looking for a PCP and also needs a Neurologist. 04/03/2022 the patient is here for a pulmonary follow-up visit. The patient has multiple complaints. A lot of them are not pulmonary. He still struggling to find a primary care doctor. The patient continues with respiratory therapy. In addition to that he continues uses CPAP every night. The CPAP therapy continues to be affecting beneficial. He does use CPAP for more than 4 hours a night. He has been complaining of joint pains. He did see the neurologist and he may have a component of carpal tunnel. The patient also had elevations in his BRIAN titers and also positive double-stranded DNA titers. He does have chest discomfort at times. Denies any rashes. In order to treat his she pleuritic discomfort and arthritis are go ahead and place him on Plaquenil. The patient will benefit from a rheumatological evaluation. Meantime she will continue with current respiratory regimen. 06/29/2022 the patient is here for a pulmonary follow-up visit. The patient is doing well from a respiratory status. He is using CPAP every night. He does use it every night for more than 4 hours a night. He does get a lot of benefit from the CPAP. He did get a call from a [email or web address] recently about his CPAP. He is concerned that the going to take away his CPAP. His CPAP appears to be very old he has at rest med S9 which is more than 10 years old. Still appears to be effective any did recently get supplies for. Although at some point may stop working. He may need to get a replacement. He will bring in the CPAP to the next visit so we can evaluated and see if he needs to get a new 1 order then. He continues uses respiratory therapy with good effect. Still dealing with significant other elements as far as neurological musculoskeletal. He did follow-up with Neurology who will refer him to a hand surgeon and also will be seen Rheumatology soon. 01/02/2023 the patient is here for a pulmonary follow-up visit. From a respiratory status the patient developed a cough in respiratory illness. Clinically he is feeling better although he feels like he needs inhaler. He has had inhalers in the past. Will go ahead and send him Symbicort that he can actually use as needed. He knows to rinse his mouth after he uses it. The patient also has been using the CPAP. He did bring it in he has an old rest med S9 machine that is likely more than 10 years old. The APAP set up 10-12 cm of water. His AHI is down to 0.8 events per hour. This is all very reassuring. He does use it for more than 4 hours a night typically the whole night. The therapy has been very effective beneficial specially with paralyzed diaphragm. The patient does need a replacement machine since her machine is now older than 10 years. Will go ahead and request a replacement machine from his DME company, [facility]. In addition to this he still dealing with significant aches. He did have carpal tunnel surgery in now complaining of a tendinitis of the elbow which is very uncomfortable. The patient is also having some pleuritic discomfort so the chest area. He did have undergo a chest x-ray recently and I did reviewed. Appears that he does have a loose sternal wire from the open heart surgery that he had as a young adult. 05/10/2023 the patient is here for a pulmonary follow-up visit. The patient overall continues have multiple complaints. Breathing though he has been doing well. Continues in his respiratory inhalers with good effect. Also the CPAP therapy has been affecting beneficial. He does use it for more than 4 hours a night. His adherence is 100%. He can not be without it. The patient needs to be able to get supplies from his DME company. I will make sure to do that. Although at this point the machine that he has been using his older than 10 years. We had requested a replacement machine but for some reason he did not get 1. I do believe that for better response to therapy a new machine will be able to be monitor closely and adjusted accordingly. Will go ahead and request the replacement machine at this time from his DME company. Also having issues significant pain. He was evaluated from a rheumatological standpoint. Significant small joint discomfort. Both the risk and also the elbows. The patient has been on the Plaquenil that initially he stopped but then he is going to restart. He was concerned about some of the side effects. In addition to that I give him a short course of prednisone to try to help him with that. He is also having abdominal discomfort. Did have a previous endoscopic biopsy demonstrating the possibility of celiac disease. Therefore, will go ahead and give her some prednisone and also requesting blood work to assess further diagnosis of potential celiac with his underlying diabetes. The patient may benefit from a referral to a dieitian if that i the case. 09/06/2023 the patient is here for pulmonary follow-up visit. The patient overall has been doing fairly well from a respiratory status. He continues to use his respiratory therapy as prescribed. Has not had to use any prednisone or rescue therapy. He continues to also use CPAP at nighttime. CPAP therapy continues to be affecting beneficial. He does uses CPAP more than 4 hours A night. He really can not sleep without the CPAP because of his diaphragmatic injury. However, he has been complaining of worsening cough. Nonproductive in nature. Moderate severity. Affecting sleep. The patient is taking small dose of RON inhibitor. He is going to go ahead and start that to see there is any improvement. Will monitor closely his blood pressure. In addition to that the benzo night may be helpful just subsiding the cough sensation. If he has no better he can call for further evaluation. 01/07/2024 the patient is here for pulmonary follow-up visit. Overall he is having multiple complaints. He is having significant back pains and difficulty sleeping. Breathing is always an issue with dyspnea on exertion. Mild-to-mod erate severity. He has been using the CPAP and CPAP continues to be very affecting beneficial for him. He does use it for more than 4 hours a night. He has been getting supplies from the [email or web address]. In addition to that he was given gabapentin for sleep. It will also help his back issues in therefore did encourage him to use it. I will recently to the pharmacy. In regards of his connective tissue disease is not clear if is manifesting although he does have an elevated double-stranded DNA. He was evaluated by Rheumatology. At this point will keeping the Plaquenil to see if this provides him help. He did have his eyes checked and will continue to have his eyes checked. In continue the low dose of 200 daily. He will continue with current respiratory therapy follow-up in 4 months. He will have a chest x-ray and lumbar x-rays today. 05/08/2024 the patient is here for pulmonary follow-up visit. Overall he is doing better now. Back in the beginning of March he did develop worsening respiratory symptoms flu-like symptoms and was actually diagnosed with RSV. He was in the hospital at [facility]. There he did have a CT scan. I am going to request a report. He was subsequently discharged on antibiotics and prednisone. He now is doing better. Although he did have some achiness in the bilateral back on the lungs. He continues uses CPAP in the CPAP has been affecting benef icial. He also continues to use his respiratory inhalers with good response. Will have him get an x-ray specially since he had this significant infection back in March and also been having significant left hand discomfort will have x-rays as well. Patient will follow-up in 3-4 months. If he has any worsening issues she will call for an earlier assessment. 06/26/2024 the patient is here for a pulmonary follow-up visit. Overall the patient is doing okay. He did have some testicular pain and swelling and he did get an ultrasound showing the hydrocele. He is following closely with oncology though because of his history of testicular cancer. In addition to that he continues uses CPAP every night. CPAP therapy has been affecting beneficial. He does use it for more than 4 hours a night. The patient has been using his respiratory inhalers. He has also been on the Plaquenil because he had a positive double-stranded DNA has significant arthritic knees. He continues to have multiple complaints. Will make sure to put a referral in order for him to follow-up with Rheumatology this time. 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 Gender identity: Male Review of Systems Const Denies difficulty sleeping, Denies snoring and Reports weakness ENT Reports no additional complaints and Reports neck pain Card Reports chest pain and Reports dyspnea Resp Reports cough, Reports dyspnea and Denies snoring GI Reports abdominal pain Reports no additional complaints Musc Reports as per HPI, Reports back pain, Reports myalgias, Reports limited range of motion, Reports muscle weakness, Reports neck pain, Reports numbness and Reports radiating pain into limb Neuro Reports numbness and Reports weakness Psych Reports anxiety and Reports depression Physical Exam Vital Signs: Last Vital Signs Pulse 101 H 06/26/24 13:04 BP 126/70 06/26/24 13:04 Pulse Ox 97 06/26/24 13:04 Oxygen Delivery Method Room Air 06/26/24 13:04 BMI result Body Mass Index 29.9 Const General: alert Neck Neck: Yes normal visual inspection, Yes full ROM and Yes no lymphadenopathy Chest Chest palpation & inspection: normal inspection of the chest Resp Auscultation: no crackles, no rales and diminished lung sounds Cardio Rate: regular rate Rhythm: regular rhythm Heart sounds: S1 normal heart sound present and S2 normal heart sound present GI Palpation (GI): Soft to palpation and nontender Auscultation: normal bowel sounds General: Yes CVA tenderness Back/Spine/Pelvis Back: CVA tenderness Skin General skin exam: rashes and/or lesions noted Extrem General: No clubbing and No cyanosis Assessment & Plan Assessment & Plan (1) Asthma: Code(s): J45.909 - Unspecified asthma, uncomplicated Category: Medical Qualifiers: Asthma complication type: uncomplicated Asthma persistence: persistent Asthma severity: moderate Qualified Code(s): J45.40 - Moderate persistent asthma, uncomplicated (2) BETHEL on CPAP: Code(s): G47.33 - Obstructive sleep apnea (adult) (pediatric); Z99.89 - Dependence on other enabling machines and devices Category: Medical (3) Chronic restrictive lung disease: Code(s): J98.4 - Other disorders of lung Category: Medical (4) Dyspnea: Comment: multifactorial. 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 Code(s): J98.6 - Disorders of diaphragm Category: Medical (6) Lymphadenopathy: Code(s): R59.1 - Generalized enlarged lymph nodes Category: Medical (7) Back pain: Code(s): M54.9 - Dorsalgia, unspecified Category: Medical Qualifiers: Back pain laterality: unspecified Back pain location: low back pain Chronicity: unspecified Sciatica presence: unspecified whether sciatica present Qualified Code(s): M54.50 - Low back pain, unspecified (8) Chest pain: Code(s): R07.9 - Chest pain, unspecified Category: Medical Qualifiers: Chest pain type: other chest pain Qualified Code(s): R07.89 - Other ch est pain (9) Pain: Code(s): R52 - Pain, unspecified Category: Medical (10) Arthritis: Code(s): M19.90 - Unspecified osteoarthritis, unspecified site Category: Medical Plan continue with APAP, continue Symbicort continue Singulair continue plaquenil continue gabapentin benzonates as needed F/U 4-6 months Orders: Referrals Rheumatology Referral M19.90 - Unspecified osteoarthritis, unspecified site Medications: New albuterol sulfate 2.5 mg (3 mL) inhalation Q6H PRN 180 mL 11RF shortness of breath or wheezing 30 days Coding Level of Care Code Est Pt Level 4 (67967) Diagnoses Moderate persistent asthma without complication J45.40 Asthma complication type: uncomplicated Asthma persistence: persistent Asthma severity: moderate BETHEL on CPAP G47.33; Z99.89 Chronic restrictive lung disease J98.4 Dyspnea on exertion R06.00 Dyspnea type: dyspnea on exertion Paralysis, diaphragm J98.6 Lymphadenopathy R59.1 Low back pain, unspecified back pain laterality, unspecified chronicity, unspecified whether sciatica present M54.50 Back pain laterality: unspecified Back pain location: low back pain Chronicity: unspecified Sciatica presence: unspecified whether sciatica present Other chest pain R07.89 Chest pain type: other chest pain Pain R52 Arthritis M19.90 Time Spent (min) 17
[2024-06-26 13:04] VITALS: BP 126/70; PULSE 101; O2SAT 97; BMI 29.9
--- OUTSIDE RECORDS SUMMARY | 2024-06-26 14:48 | XMS_ITS | Clinical Summary ---
Author Organization [address] [facility] Address [address] [place] [address] Phone Care Team Providers Care Outreach Analyst Name Role Phone Myrna Clemens MD Primary Care Provider [phone] Allergies No known active allergies Medications albuterol [...] Department Care Team Description 05/18/2024 Telephone Endocrinology - [address] [phone] Payton Win PA RETURNING PHONE CALL 05/12/2024 1:15 PM EST Office Visit Endocrinology [address] [phone] Payton Win PA Type 2 diabetes mellitus without complication, unspecified whether prison insulin use ([facility]) (Primary Dx) from Last 3 Months Immunizations Name Administration [...] Mediastinal malignancy excision OTHER SURGICAL HISTORY PROCEDURE: ID UNLISTED PROCEDURE DIAPHRAGM Medical History Medical History [...] PM EDT Office Visit Internal Medicine - [place] [address] [facility] [address] [place] [address] Farnaz Shipley NP [address] [facility] [address] [place] [address] 11/10/2024 1:15 PM EDT Office Visit Endocrinology [id number] [place] [phone] Payton Win PA [address] [place] [address] Health Maintenance Due Date Last Done Comments [...] Procedure Name Priority Date/Time Associated Diagnosis Comments EXTERNAL ULTRASOUND REPORT 06/11/2024 EXTERNAL ULTRASOUND REPORT 06/11/2024 LIPID PANEL WITH REFLEX TO DIRECT LDL Routine 05/12/2024 2:17 PM EST Type 2 diabetes mellitus without complication, unspecified whether prison insulin use (CMS/HCC) BASIC METABOLIC PANEL Routine 05/12/2024 2:17 PM EST Type 2 diabetes mellitus without complication, unspecified whether prison insulin use (CMS/HCC) HEMOGLOBIN A1C Routine 05/12/2024 2:17 PM EST Type 2 diabetes mellitus without complication, unspecified whether long term care administrator insulin use (CMS/HCC) MICROALBUMIN CREATININE URINE RATIO Routine 05/12/2024 2:17 PM EST Type 2 diabetes mellitus without complication, unspecified whether long term care administrator insulin use (CMS/HCC) POC GLUCOSE Routine 05/12/2024 1:34 PM EST Type 2 diabetes mellitus without complication, unspecified whether prison insulin use ([facility]) EXTERNAL XRAY REPORT 05/08/2024 EXTERNAL XRAY REPORT 05/08/2024 DIABETES EYE EXAM Routine 04/18/2023 from Last 3 Months or Most Recently Relevant to Health Maintenance Results * External Ultrasound Report (06/11/2024) Only the most recent of2 resultswithin the time period is included. Anatomical Region Laterality Modality Ultrasound us Provider [facility] US PROCEDURES Final Result * (ABNORMAL) Lipid panel with reflex to direct LDL (05/12/2024 2:17 PM EST) Cholesterol 209(H) 0 - 200 mg/dL LAB CHEMISTRY METHOD 05/12/2024 5:23 PM [facility] Triglycerides 96 0 - 150 mg/dL LAB CHEMISTRY METHOD 05/12/2024 5:23 PM [facility] HDL 76 >=40 mg/dL LAB CHEMISTRY METHOD 05/12/2024 5:23 PM [facility] LDL Calculated 114(H) 0 - 100 mg/dL LAB CHEMISTRY METHOD 05/12/2024 5:23 PM [facility] VLDL Cholesterol Robert 19.2 mg/dL LAB CHEMISTRY METHOD 05/12/2024 5:23 PM [facility] Non HDL Chol. (LDL+VLDL) 133 <145 mg/dL LAB CHEMISTRY METHOD 05/12/2024 5:23 PM [facility] Chol/HDL Ratio 2.8 0.0 - 4.4 LAB CHEMISTRY METHOD 05/12/2024 5:23 PM [facility] Blood Venous blood specimen / Unknown Venipuncture / Unknown 05/12/2024 2:17 PM EST 05/12/2024 2:17 PM EST Payton LUCERO LAB BLOOD ORDERABLES Final Result [facility] [address] [place] [address], [place] [phone] * Microalbumin creatinine urine ratio (05/12/2024 2:17 PM EST) Creatinine, Urine 143.0 mg/dL LAB CHEMISTRY METHOD 05/12/2024 5:41 PM EST [facility] Microalb, Ur 21.0 0.0 - 29.0 mg/L LAB CHEMISTRY METHOD 05/12/2024 5:41 PM EST [facility] Microalb/Creat Ratio 15 <30 mg/g creat LAB CHEMISTRY METHOD 05/12/2024 5:41 PM EST [facility] Urine Urine specimen from urethra / Unknown Non-blood Collection / Unknown 05/12/2024 2:17 PM EST 05/12/2024 2:17 PM EST Payton LUCERO LAB URINE ORDERABLES Final Result Performing Organization Address City/[facility]/ZIP Co de Phone Number [facility] [address] [place] [address], [place] [phone] * Hemoglobin A1c (05/12/2024 2:17 PM EST) Hemoglobin A1C 5.4 <6.5 % LAB CHEMISTRY METHOD 05/12/2024 9:24 PM EST [facility] Mean Bld Glu Estim. 108 mg/dL LAB CHEMISTRY METHOD 05/12/2024 9:24 PM EST [facility] Blood Venous blood specimen / Unknown Venipuncture / Unknown 05/12/2024 2:17 PM EST 05/12/2024 2:17 PM EST Payton LUCERO LAB BLOOD ORDERABLES Final Result [facility] [address] [place] [address], * (ABNORMAL) Basic metabolic panel (05/12/2024 2:17 PM EST) Sodium 143 133 - 145 mmol/L LAB CHEMISTRY METHOD 05/12/2024 5:20 PM EST [facility] Potassium 3.5 3.5 - 5.5 mmol/L LAB CHEMISTRY METHOD 05/12/2024 5:20 PM [facility] Chloride 108 96 - 110 mmol/L LAB CHEMISTRY METHOD 05/12/2024 5:20 PM [facility] CO2 27 21 - 32 mmol/L LAB CHEMISTRY METHOD 05/12/2024 5:20 PM [facility] Anion Gap 8 3 - 11 LAB CHEMISTRY METHOD 05/12/2024 5:20 PM [facility] Glucose 105(H) 70 - 100 mg/dL LAB CHEMISTRY METHOD 05/12/2024 5:20 PM [facility] BUN 11 5 - 25 mg/dL LAB CHEMISTRY METHOD 05/12/2024 5:20 PM [facility] Creatinine 0.92 0.70 - 1.30 mg/dL LAB CHEMISTRY METHOD 05/12/2024 5:20 PM [facility] eGFR 103 >=60 mL/min/1. 73m2 LAB CHEMISTRY METHOD 05/12/2024 5:20 PM [facility] Comment:Calculation based on the??Chronic Kidney Disease Epidemiology Collaboration (CKD-EPI) equation refit??without adjustment for race. BUN/Creatinine Ratio 12.0 LAB CHEMISTRY METHOD 05/12/2024 5:20 PM [facility] Calcium 9.1 8.5 - 10.5 mg/dL LAB CHEMISTRY METHOD 05/12/2024 5:20 PM [facility] Blood Venous blood specimen / Unknown Venipuncture / Unknown 05/12/2024 2:17 PM EST 05/12/2024 2:17 PM EST Payton LUCERO LAB BLOOD ORDERABLES Final Result [facility] [address] [place] [address], [place] [phone] * POC glucose manually resulted (05/12/2024 1:34 [...] [facility] IMG XR PROCEDURES Final Result * Hm Diabetes Eye Exam (04/18/2023) Pathologist [facility] Diabetes: Annual Retina Eye Exam Abstracted Historical Provider MD HEALTH MAINTENANCE Final Result from Last 3 Months or Most Recently Relevant to Health Maintenance Insurance [facility] [facility] Care Teams Outreach Analyst Relationship Specialty Start Date End Date Myrna Clemens MD [address] [place] [phone] PCP - General Internal Medicine 06/30/20
== END 2024-06-26 13:26 | disposition home or self-care (01) ==
LOC: HO.HPS 12:57
PROVIDERS: PCP Internal Medicine; Visit Provider Hospitalist
DX: J45.40 Moderate persistent asthma, uncomplicated (principal); G47.33 Obstructive sleep apnea (adult) (pediatric); Z99.89 Dependence on other enabling machines and devices; J98.4 Other disorders of lung
CPT/HCPCS: 99214

== ENCOUNTER → 2024-06-26 12:56 | Outpatient (BNVA) | payer OTHER, SELFPAY | PROVIDERS: PCP Internal Medicine; Visit Provider Hospitalist | DX: J45.40 Moderate persistent asthma, uncomplicated (principal); J98.6 Disorders of diaphragm; J98.4 Other disorders of lung; G47.33 Obstructive sleep apnea (adult) (pediatric); R06.00 Dyspnea, unspecified; R59.1 Generalized enlarged lymph nodes; M54.50 Low back pain, unspecified; R07.89 Other chest pain; M19.90 Unspecified osteoarthritis, unspecified site; Z99.89 Dependence on other enabling machines and devices | CPT/HCPCS: 99212 ==

== ENCOUNTER 2024-10-14 13:13 | Outpatient (AMB) | payer OTHER, SELFPAY ==
--- NOTE | 2024-10-14 13:39 | A.OFFVIS_ITS ---
Vital Signs 10/14/24 13:42 Weight 166 lb BP 132/79 Blood Pressure Location Lt brachial Position Sitting Respiration 18 Pulse 75 Pulse Source Pulse Oximeter Pulse Oximetry (%) 98 Oxygen Delivery Method Room Air Intake Visit Reasons: Fibromyalgia Medical Receptionist Required: Yes Medical Receptionist Name: [id number] Allergies No Known Allergies Allergy (Verified 10/14/24 13:44) HPI Comments Details: Steve is very pleasant 49 years old [place]ican-speaking gentleman who presents himself in my office with complains on pain all over the body. Reports pain in bilateral shoulders pain in the right side of the chest pain in the bilateral groins pain in the right knee pain in bilateral ankles pain in lower back pain in the upper back pain in bilateral scapular areas. He has complex past medical history including testicular cancer s/p surgery and chemotherapy. This statement is under question because apparently he recently had testicular ultrasound was demonstrate bilateral normal testicles. The date of this ultrasound is May of 2024. Another diagnosis of the cancer exists as the cancer of the bilateral breasts in mail. Apparently he had surgery at [facility] then he had chemotherapy which he could not tolerate fully because of the severe anemia. It has been 10 years since he completed treatment for his cancer. He also has history of BETHEL and asthma. The patient is under impression that his asthmatic symptoms are related to the lung resection he received in [facility]. He was diagnose with positive BRIAN antibodies, he was under care of Dr. Toney in here. He also under care of urologist currently he receives Celebrex 200 mg for his pain hydroxychloroquine 200 mg and gabapentin 300 mg. He reports that he is suffering from diabetes he is under care of speech pathology teacher. He never had physical therapy he received images of the chest x-ray 2 month ago. [facility] Medical History (Updated 10/14/24 @ 14:31 by Carlos Champagne MD) Arthritis Abdominal pain Breast cancer in male Sarcoidosis Lupus (systemic lupus erythematosus) Testicular cancer Carpal tunnel syndrome on both sides BRIAN positive Abnormal chest x-ray Insomnia [id number] syndrome Lymphadenopathy Leg weakness Chronic restrictive lung disease Dyspnea Paralysis, diaphragm BETHEL on CPAP Asthma B12 deficiency Diabetic neuropathy associated with type 2 diabetes mellitus Overweight (BMI 25.0-29.9) Vitamin D deficiency Hypertension Dyslipidemia Diabetes type 2, controlled Surgical History S/P carpal tunnel release Hx of nephrolithotomy with removal of calculi History of lung surgery Family History Father Diabetes Heart disease Hypertension Brother Diabetes Arthritis Mother Diabetes Arthritis Obesity Brother No problems noted. 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 Gender identity: Male Review of Systems Const All systems reviewed & are unremarkable except as noted in HPI and below Physical Exam Vital Signs: Last Vital Signs Pulse 75 10/14/24 13:42 Resp 18 10/14/24 13:42 BP 132/79 10/14/24 13:42 Pulse Ox 98 10/14/24 13:42 Oxygen Delivery Method Room Air 10/14/24 13:42 General: Appears afebrile. Alert and oriented. Mood and affect appropriate. Follows and participates in conversation appropriately. Respiratory effort is unlabored. Able to transition from sit to stand unassisted. Ambulates with bilaterally normal heel strike and toe off. Back/Chest: No significant tenderness to palpation in the lumbar spine or the buttocks. Spine alignment is midline. There are scars on his chest from a prior possible surgery the scars are transfers thoracic incision. There is also a scar on his left groin presumably from removal of the groin lymph nodes. Assessment & Plan Assessment & Plan (1) Low back pain: Code(s): M54.50 - Low back pain, unspecified Category: Medical (2) Bilateral shoulder pain: Code(s): M25.511 - Pain in right shoulder; M25.512 - Pain in left shoulder Category: Medical (3) Upper back pain: Code(s): M54.9 - Dorsalgia, unspecified Category: Medical (4) Chronic pain syndrome: Code(s): G89.4 - Chronic pain syndrome Category: Medical Plan We will send information request from Dr. Ryan who sent him for the ultrasound of the bilateral testicles. I also sent him for physical therapy today. After that I will see him in 6 weeks and we will see how physical therapy helped his pain. Possibility of starting him on Savella exists. He also is scheduled for appointment with spray gun repairer helper. He has BRIAN positive antibodies. He has strong history of rheumatoid arthritis in the family. We will re-evaluate him with consideration of the rheumatological diagnosis. I explained to him that physical therapy needs to be accompanied and continued with home exercise program. He would need to perform home exercise 3 times a day for at least 15 minutes at a time. Orders: Orders PT Evaluation and Treatment Today G89.4 - Chronic pain syndrome, M25.511 - Pain in right shoulder, M25.512 - Pain in left shoulder, M54.50 - Low back pain, unspecified, M54.9 - Dorsalgia, unspecified Coding Level of Care Code New Pt Level 3 (96345) Diagnoses Low back pain M54.50 Bilateral shoulder pain M25.511; M25.512 Upper back pain M54.9 Chronic pain syndrome G89.4
--- OUTSIDE RECORDS SUMMARY | 2024-10-14 13:40 | XMS_ITS ---
Author Name [facility] Organization Unknown Care Team Organization Name Specialty Phone Email Start Date End Da te [facility] Primary Care 01/30/2022 11/11/19 24
--- OUTSIDE RECORDS SUMMARY | 2024-10-14 13:40 | XMS_ITS | Clinical Summary ---
Author Organization 175 [facility] Address 175 [place] [address] Phone Care Team Providers Care Sdv Pilot/Navigator/Dds Operator Name Role Phone Myrna Clemens MD Primary Care Provider [phone] Allergies No known active allergies Medications albuterol HFA (PROAIR HFA ; PROVENTIL HFA ; VENTOLIN HFA) 90 mcg/actuation inhaler Inhale 2 Puffs into the lungs every 4 hours as needed. Active B complex tablet Take by mouth. Active betamethasone, augmented, (DIPROLENE-AF) 0.05 % cream Apply locally twice a day 1 Active clobetasoL (TEMOVATE) 0.05 % ointment APPLY [...] Active lisinopriL (PRINIVIL,ZESTRIL ) 5 mg tablet Active meloxicam (MOBIC) 7.5 mg tablet TAKE [...] in face or genital area. 9 Active acetaminophen (TYLENOL) 500 mg tablet Take [...] by mouth 2 (two) times a day. 5 Active celecoxib (CeleBREX) 200 mg capsuleIndication s:Fibromyalgia Take 1 capsule (200 mg total) by mouth 1 (one) time each day. 60 capsule 5 5 Active cholecalciferol (VITAMIN D-3) 50 mcg (2,000 unit) tablet Take 1 tablet (2,000 Units total) by mouth 1 (one) time each day. 90 tablet 3 5 Active traMADoL (ULTRAM) 50 mg tabletIndications :Kidney stones Take 1 tablet (50 mg total) by mouth 3 (three) times a day if needed for severe pain. Max Daily Amount: 150 mg 15 tablet 5 Active lidocaine (LMX 4) 4 % creamIndications: Fibromyalgia Apply topically 4 (four) times a day if needed for mild pain. 30 g 11 5 026 Active gemfibroziL (LOPID) 600 mg tabletIndications :Type 2 diabetes mellitus without complications ([facility] V24, [facility] V28) TOME 1 TABLETA POR VIA ORAL DOS VECES [place] 180 tablet 1 5 Active Active Problems Problem Noted Date Diagnosed Date Left inguinal hernia 09/30/2017 Asthma with COPD ([facility] V24, [facility] V28) 07/2017 Depression 01/23/2017 Hypertension 12/11/2016 Hypertriglyceridemia 12/11/2016 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 Obstructive sleep apnea 09/27/2016 Overview (01/21/2024): mild [facility] Home Sleep Apnea Test: Date 09/16/2018; [...] sleep apnea test. Type 2 diabetes mellitus wit hout complication ([facility] V24, [facility] V28) 09/27/2016 Avascular necrosis of bone o f hip ([facility] V24, [facility] V28) 06/07/2016 Asthma 05/11/2016 Diverticulosis of intestine 05/11/2016 Encounters Date Type Department Care Team Description 09/02/2024 2:15 PM EDT Office Visit Internal Medicine - [address] [address] Farnaz Shipley NP Type 2 diabetes mellitus without complication, unspecified whether shelter insulin use ([facility] V24, [facility] V28) (Primary Dx); Hypertriglyceridemia; Hypertension, unspecified type; Asthma with COPD ([facility] V24, [facility] V28); H/O testicular cancer; Fibromyalgia; Kidney stones; Anxiety from Last 3 Months Immunizations Name Administration [...] Mediastinal malignancy excision OTHER SURGICAL HISTORY PROCEDURE: [place] UNLISTED PROCEDURE DIAPHRAGM Medical History Medical History Date Comments Depression 01/23/2017 DX:Depression History of testicular cancer 01/23/2017 DX: History of testicular cancer Asthma 05/11/2016 DX:Asthma Avascular necrosis of bone o f hip ([facility] V24, [facility] V28) 06/07/2016 DX:Avascular necrosis of bon e of hip ([facility]) 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 Diverticulosis of intestine 05/11/2016 DX:D iverticulosis of intestine History of renal calculi 12/30/2015 DX:Hist ory of renal calculi Hypertension 12/11/2016 DX:Hypertension Hypertriglyceridemia 12/11/2016 DX:Hypertri glyceridemia Obstructive sleep apnea syndrome 09/27/2016 DX:Obstructive sleep apnea syndrome Type 2 diabetes mellitus wit hout complication ([facility] V24, [facility] V28) 09/27/2016 DX:Type 2 diab etes mellitus without complication ([facility]) History of malignant neoplas m of [...] Sign Reading Time Taken Comments Blood Pressure 132/68 09/02/2024 1:42 PM EDT Pulse 96 09/02/2024 1:42 PM EDT Temperature 36.6 C (97.8 F) 09/02/2024 1:42 PM EDT Respiratory Rate 17 03/25/2024 8:33 PM EST Oxygen Saturation 97% 09/02/2024 1:42 PM EDT Inhaled Oxygen Concentration - - Weight 74.4 kg (164 lb) 09/02/2024 1:42 PM EDT Height 160 cm (5' 3 ) 05/12/2024 1:30 PM EST Body Mass Index 29.05 05/12/2024 1:30 PM EST Plan of Treatment Upcoming Encounters Date Type Department Care Team (Late st Contact Info) Description 11/10/2024 1:15 PM EDT Office Visit Endocrinology [facility] [address] [place] [phone] Payton Win PA [address] [place] [address] 03/09/2025 1:30 PM EST Office Visit Internal Medicine - [place] [address] [phone] Myrna Clemens MD 175 [facility] [address] [place] [address] Health Maintenance Due Date Last Done Comments Diabetes: Annual Foot Exam 1987 Hepatitis B Vaccines (1 of 3 - 19+ 3-dose series) 02/04/1996 Pneumococcal Vaccine: Pediatrics (0 to 5 Years) and At-Risk Patients (6 to 49 Years) (1 of 2 - PCV) 02/04/1996 Colorectal Cancer Screening: Colonoscopy 02/25/2022 HIV Screening 02/25/2022 Hepatitis C Screening 02/25/2022 Social Influencers of Health Screening 02/25/2022 COVID-19 Vaccine ( season) 2023 03/29/2022, 08/03/2020, 07/06/2020 Depression Screening 03/25/2024 Diabetes: Blood Sugar Control Test (HGBA1C) 11/09/2024 05/12/2024, 11/08/2023, 11/08/2023 Influenza Vaccine (#1) 2024 12/27/2017, 2016 Diabetes: Annual Retina Eye Exam 02/25/2025 02/26/2024, [...] age to complete this topic Meningococcal B Vaccine Aged Out No l onger eligible based on patient's age to complete this topic RSV Immunization Patients Under 20 months Aged Out No longer eligible based on patient's age to complete this topic Varicella Vaccines Aged Out No longer eligible based on patient's age to complete this topic Procedures Procedure Name Priority Date/Time Associated Diagnosis Comments MICROALBUMIN CREATININE URINE RATIO Routine 05/12/2024 2:17 PM EST Type 2 diabetes mellitus without complication, unspecified whether terminologist insulin use ([facility] V24, [facility] V28) BASIC METABOLIC PANEL Routine 05/12/2024 2:17 PM EST Type 2 diabetes mellitus without complication, unspecified whether shelter insulin use ([facility] V24, [facility] V28) HEMOGLOBIN A1C Routine 05/12/2024 2:17 PM EST Type 2 diabetes mellitus without complication, unspecified whether terminologist insulin use ([facility] V24, [facility] V28) LIPID PANEL WITH REFLEX TO DIRECT LDL Routine 05/12/2024 2:17 PM EST Type 2 diabetes mellitus without complication, unspecified whether shelter insulin use ([facility] V24, [facility] V28) DIABETES EYE EXAM Routine 04/18/2023 from Last 3 Months or Most Recently Relevant to Health Maintenance Results * (ABNORMAL) Lipid panel with reflex to direct LDL (05/12/2024 2:17 PM EST) Cholesterol 209(H) 0 - 200 mg/dL LAB CHEMISTRY METHOD 05/12/2024 5:23 PM [facility] Triglycerides 96 0 - 150 mg/dL LAB CHEMISTRY METHOD 05/12/2024 5:23 PM [facility] HDL 76 >=40 mg/dL LAB CHEMISTRY METHOD 05/12/2024 5:23 PM [facility] LDL Calculated 114(H) 0 - 100 mg/dL LAB CHEMISTRY METHOD 05/12/2024 5:23 PM [facility] VLDL Cholesterol Robert 19.2 mg/dL LAB CHEMISTRY METHOD 05/12/2024 5:23 PM [facility] Non HDL Chol. (LDL+VLDL) 133 <145 mg/dL LAB CHEMISTRY METHOD 05/12/2024 5:23 PM [facility] Chol/HDL Ratio 2.8 0.0 - 4.4 LAB CHEMISTRY METHOD 05/12/2024 5:23 PM EST [facility] Blood Venous blood specimen / Unknown Venipuncture / Unknown 05/12/2024 2:17 PM EST 05/12/2024 2:17 PM EST Payton LUCERO LAB BLOOD ORDERABLES Final Result Performing Organization Address [facility]/ZIP Co de Phone Number [facility] [address] [place] [address], [place] [phone] * Microalbumin creatinine urine ratio (05/12/2024 2:17 PM EST) Creatinine, Urine 143.0 mg/dL LAB CHEMISTRY METHOD 05/12/2024 5:41 PM EST [facility] Microalb, Ur 21.0 0.0 - 29.0 mg/L LAB CHEMISTRY METHOD 05/12/2024 5:41 PM EST [facility] Microalb/Creat Ratio 15 <30 mg/g creat LAB CHEMISTRY METHOD 05/12/2024 5:41 PM EST [facility] Urine Urine specimen from urethra / Unknown Non-blood Collection / Unknown 05/12/2024 2:17 PM EST 05/12/2024 2:17 PM EST Payton LUCERO LAB URINE ORDERABLES Final Result Performing Organization Address City/[facility]/ZIP Co de Phone Number [facility] [address] [place] [address], [place] [phone] * Hemoglobin A1c (05/12/2024 2:17 PM EST) Hemoglobin A1C 5.4 <6.5 % LAB CHEMISTRY METHOD 05/12/2024 9:24 PM EST [facility] Mean Bld Glu Estim. 108 mg/dL LAB CHEMISTRY METHOD 05/12/2024 9:24 PM EST [facility] Blood Venous blood specimen / Unknown Venipuncture / Unknown 05/12/2024 2:17 PM EST 05/12/2024 2:17 PM EST us Payton LUCERO LAB BLOOD ORDERABLES Final Result [facility] [address] [place] [address], * (ABNORMAL) Basic metabolic panel (05/12/2024 2:17 PM EST) Sodium 143 133 - 145 mmol/L LAB CHEMISTRY METHOD 05/12/2024 5:20 PM [facility] Potassium [...] [facility] Comment:Calculation based on the Chronic Kidney Disease Epidemiology Collaboration (CKD-EPI) equation refit without adjustment for race. BUN/Creatinine Ratio 12.0 LAB CHEMISTRY METHOD 05/12/2024 5:20 PM EST [facility] Calcium 9.1 8.5 - 10.5 mg/dL LAB CHEMISTRY METHOD 05/12/2024 5:20 PM EST [facility] Blood Venous blood specimen / Unknown Venipuncture / Unknown 05/12/2024 2:17 PM EST 05/12/2024 2:17 PM EST us Payton LUCERO LAB BLOOD ORDERABLES Final Result [facility] [address] [place] [address], * Diabetes Eye Exam (04/18/2023) Diabetes: Annual Retina Eye Exam Abstracted us Historical Provider MD HEALTH MAINTENANCE Final Result from Last 3 Months or Most Recently Relevant to Health Maintenance Insurance [facility] Care Teams Sdv Pilot/Navigator/Dds Operator Relationship Specialty Start Date End Date Myrna Clemens MD [address] [phone] PCP - General Internal Medicine 06/30/20
[2024-10-14 13:42] VITALS: BP 132/79; PULSE 75; RESP 18; O2SAT 98
== END 2024-10-14 14:12 | disposition home or self-care (01) ==
LOC: HO.PMC 13:14
PROVIDERS: PCP Internal Medicine; Referring Provider Nurse Practitioner; Visit Provider Anesthesiology
DX: M54.50 Low back pain, unspecified (principal); M25.511 Pain in right shoulder; M25.512 Pain in left shoulder; M54.9 Dorsalgia, unspecified; G89.4 Chronic pain syndrome
CPT/HCPCS: 99203

== ENCOUNTER → 2024-10-14 13:13 | Outpatient (BNVA) | payer OTHER, SELFPAY | PROVIDERS: PCP Internal Medicine; Referring Provider Nurse Practitioner; Visit Provider Anesthesiology | DX: M79.18 Myalgia, other site (principal); M54.50 Low back pain, unspecified; M25.511 Pain in right shoulder; M25.512 Pain in left shoulder; M54.9 Dorsalgia, unspecified; G89.4 Chronic pain syndrome | CPT/HCPCS: 99202 ==

== ENCOUNTER 2024-11-25 14:00 | Outpatient (AMB) | payer OTHER, SELFPAY ==
--- NOTE | 2024-11-25 14:11 | A.OFFVIS_ITS ---
Vital Signs 11/25/24 14:12 Weight 156 lb BP 117/71 Blood Pressure Location Lt brachial Position Sitting Respiration 18 Pulse 79 Pulse Source Pulse Oximeter Pulse Oximetry (%) 99 Oxygen Delivery Method Room Air Intake Visit Reasons: 6 WEEK FOLLOW UP Box Printing Machine Operator Required: Yes Box Printing Machine Operator Name: [id number] Allergies No Known Allergies Allergy (Verified 10/14/24 13:44) HPI Comments Details: Steve is back in my office complaining that physical therapy office did not contact him. We will send a request to physical therapy again to start physical therapy for this patient. I will see him in 1 month and we will discuss possibility of treatment of his pain with injections. Prior: complains on pain all over the body. Reports pain in bilateral shoulders pain in the right side of the chest pain in the bilateral groins pain in the right knee pain in bilateral ankles pain in lower back pain in the upper back pain in bilateral scapular areas. He has complex past medical history including testicular cancer s/p surgery and chemotherapy. He had chemotherapy to treat tumor of his testicles and after that he had thoracotomy to remove meds of the tumor. 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 Current ultrasound demonstrates normal testicles and epididymis cysts. He has under observation with Dr. Ryan. He was diagnose with positive BRIAN antibodies, he was under care of Dr. Toney in here. He also under care of urologist currently he receives Celebrex 200 mg for his pain hydroxychloroquine 200 mg and gabapentin 300 mg. He reports that he is suffering from diabetes he is under care of electrical instrument maker. He never had physical therapy he received images of the chest x-ray 2 month ago. [facility] Medical History (Updated 10/14/24 @ 14:31 by Carlos Champagne MD) Arthritis Abdominal pain Breast cancer in male Sarcoidosis Lupus (systemic lupus erythematosus) Testicular cancer Carpal tunnel syndrome on both sides BRIAN positive Abnormal chest x-ray Insomnia [id number] syndrome Lymphadenopathy Leg weakness Chronic restrictive lung disease Dyspnea Paralysis, diaphragm BETHEL on CPAP Asthma B12 deficiency Diabetic neuropathy associated with type 2 diabetes mellitus Overweight (BMI 25.0-29.9) Vitamin D deficiency Hypertension Dyslipidemia Diabetes type 2, controlled Surgical History S/P carpal tunnel release Hx of nephrolithotomy with removal of calculi History of lung surgery Family History Father Diabetes Heart disease Hypertension Brother Diabetes Arthritis Mother Diabetes Arthritis Obesity Brother No problems noted. 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 Gender identity: Male Review of Systems Const All systems reviewed & are unremarkable except as noted in HPI and below Physical Exam General: Appears afebrile. Alert and oriented. Mood and affect appropriate. Follows and participates in conversation appropriately. Respiratory effort is unlabored. Able to transition from sit to stand unassisted. Ambulates with bilaterally normal heel strike and toe off. Back/Chest: No significant tenderness to palpation in the lumbar spine or the buttocks. Spine alignment is midline. There are scars on his chest from a prior possible surgery the scars are transfers thoracic incision. There is also a scar on his left groin presumably from removal of the groin lymph nodes. Assessment & Plan Assessment & Plan (1) Low back pain: Code(s): M54.50 - Low back pain, unspecified Category: Medical (2) Bilateral shoulder pain: Code(s): M25.511 - Pain in right shoulder; M25.512 - Pain in left shoulder Category: Medical (3) Upper back pain: Code(s): M54.9 - Dorsalgia, unspecified Category: Medical (4) Chronic pain syndrome: Code(s): G89.4 - Chronic pain syndrome Category: Medical Plan We will renew the physical therapy order. We will make sure that he will start and finish physical therapy. After that we will offer him injections to treat the pain in multiple joints. I will see this patient in 1 month after he will complete physical therapy. Coding Level of Care Code Est Pt Level 3 (87304) Diagnoses Low back pain M54.50 Bilateral shoulder pain M25.511; M25.512 Upper back pain M54.9 Chronic pain syndrome G89.4
[2024-11-25 14:12] VITALS: BP 117/71; PULSE 79; RESP 18; O2SAT 99
--- OUTSIDE RECORDS SUMMARY | 2024-11-25 16:14 | XMS_ITS | Encounter Summary ---
Author Organization [facility] Address [address] [place] [address] Care Team Providers Care Cloth Cutting Inspector Name Role Phone Myrna Clemens MD Primary Care Provider [phone] Encounter Details Date Type Department Care Team (Late Contact Info) Description 11/05/2024 Lab Requisition [facility] [address] [facility] [place] [address] Corona Ryan PA [address] [facility] [address] [place] [address] Calculus of kidney Social History Tobacco Use Types Packs/Day Years [...] PM EST documented as of this encounter Plan of Treatment Upcoming Encounters Date Type Department Care Team (Late Contact Info) Description 12/29/2024 2:00 PM EDT Office Visit Endocrinology [place] [id number] [place] [address] Payton Win PA [address] [place] [address] 03/09/2025 1:30 PM EST Office Visit Internal Medicine - [place] 175 [facility] [address] [place] [address] Myrna Clemens MD [address] [place] [phone] documented as of this encounter Procedures Procedure Name Priority Date/Time Associated Diagnosis Comments PARATHYROID HORMONE INTACT Routine 11/05/2024 10:18 AM EDT Calculus of kidney documented in this encounter Results * Parathyroid hormone intact (11/05/2024 10:18 AM EDT) PTH 62.9 18.5 - 88.0 pcg/mL LAB CHEMISTRY METHOD 11/05/2024 2:08 PM EDT [facility] Blood Venous blood specimen / Unknown 11/05/2024 10:18 AM EDT 11/05/2024 12:29 PM EDT Corona LUCERO LAB BLOOD ORDERABLES Final Result [facility] [address] [place] [address], documented in this encounter Visit Diagnoses Diagnosis Calculus of kidney documented in this encounter Care Teams Cloth Cutting Inspector Relationship Specialty Start Date End Date Myrna Clemens MD [address] [phone] PCP - General Internal Medicine 06/30/20 documented as of this encounter
--- OUTSIDE RECORDS SUMMARY | 2024-11-25 16:14 | XMS_ITS | Clinical Summary ---
Author Organization [address] [facility] Address [address] [place] [address] Phone Care Team Providers Care Marketing Services Manager Name Role Phone Myrna Clemens MD Primary Care Provider [phone] Allergies No known active allergies Medications albuterol HFA (PROAIR HFA ; PROVENTIL HFA ; VENTOLIN HFA) 90 mcg/actuation inhaler Inhale 2 Puffs into the lungs every 4 hours as needed. Active B complex tablet Take by mouth. Active betamethasone, augmented, (DIPROLENE-AF) 0.05 % cream Apply locally twice a day 06/08/19 21 Active clonazePAM (KlonoPIN) 1 mg tablet 03/30/19 19 Active diclofenac (VOLTAREN) 75 mg EC tablet TAKE 1 TABLET BY MOUTH TWICE A DAY WITH FOOD NEEDED FOR PAIN 01/03/20 21 Active ferrous sulfate 325 mg (65 mg elemental iron) tablet Take 1 Tab by mouth daily. 10/07/19 19 Active FREESTYLE LANCETS MISC 03/20/20 18 Active gabapentin (NEURONTIN) 400 mg capsule Take 400 mg by mouth at bedtime. Active blood sugar diagnostic (FreeStyle Lite Strips) test strip 03/30/19 19 Active hydroxychloroquin e (PLAQUENIL) 200 mg tablet TOME MARTHA TABLETA TODOS LOS D 04/23/19 24 Active meloxicam (MOBIC) 7.5 mg tablet TAKE 1 TABLET BY MOUTH EVERY DAY 07/14/19 21 Active montelukast (SINGULAIR) 10 mg tablet TAKE 1 TABLET BY MOUTH AT BEDTIME 03/16/20 20 Active pantoprazole (PROTONIX) 40 mg EC tablet 03/30/19 19 Active PARoxetine (PAXIL) 30 mg tablet Take 1 tablet (30 mg total) by mouth 1 (one) time each day in the morning. 01/22/20 Active rosuvastatin (CRESTOR) 20 mg tablet Take 1 Tab by mouth daily. 02/22/20 Active traZODone (DESYREL) 50 mg tablet Take 1 Tab by mouth at bedtime. 02/22/20 18 Active triamcinolone (KENALOG) 0.025 % cream Apply to affected area 1-2 times a day for 2 weeks. Do not use in face or genital area. 02/14/20 19 Active acetaminophen (TYLENOL) 500 mg tablet Take 2 tablets (1,000 mg total) by mouth every 8 (eight) hours. 30 tablet 03/25/19 25 Active ibuprofen (ADVIL,MOTRIN) 600 mg tablet Take 1 tablet (600 mg total) by mouth every 8 (eight) hours if needed for moderate pain or fever - temperature GREATER than 38 C (100.4 F). 30 tablet 03/25/19 25 Active Symbicort 160-4.5 mcg/actuation inhaler Inhale 2 puffs by mouth 2 (two) times a day. 05/08/19 25 Active celecoxib (CeleBREX) 200 mg capsuleIndication s:Fibromyalgia Take 1 capsule (200 mg total) by mouth 1 (one) time each day. 60 capsule 5 08/28/19 25 Active traMADoL (ULTRAM) 50 mg tabletIndications :Kidney stones Take 1 tablet (50 mg total) by mouth 3 (three) times a day if needed for severe pain. Max Daily Amount: 150 mg 15 tablet 09/03/19 25 Active lidocaine (LMX 4) 4 % creamIndications: Fibromyalgia Apply topically 4 (four) times a day if needed for mild pain. 30 g 11 09/03/19 25 026 Active gemfibroziL (LOPID) 600 mg tabletIndications :Type 2 diabetes mellitus without complications (CMS/HCC V24, CMS/HCC V28) TOME 1 TABLETA POR VIA ORAL DOS VECES AL MIREILLE 180 tablet 1 09/05/19 25 Active dulaglutide (Trulicity) 1.5 mg/0.5 mL pen injector injection Inject 0.5 mL (1.5 mg total) under the skin every 7 (seven) days. 6 mL 3 11/11/19 25 Active clobetasoL (TEMOVATE) 0.05 % ointment APPLY TO LEGS DOS VECES AL D A CUANDO SEA NECESARIO FOR FLARES, DECREASE SYMPTOMS IMPROVE 08/01/19 24 025 Discontin ued(Thera py completed ) lisinopriL (PRINIVIL,ZESTRIL ) 5 mg tablet 025 Discontin ued(Thera py completed ) roflumilast (DALIRESP) 500 mcg tablet Take 500 mcg by mouth daily. 03/28/19 025 Discontin ued(Thera py completed ) dulaglutide (Trulicity) 1.5 mg/0.5 mL pen injector injection Inject 0.5 mL (1.5 mg total) under the skin every 7 (seven) days. 6 mL 3 05/12/19 025 Discontin ued(Reord er) cholecalciferol (VITAMIN D-3) 50 mcg (2,000 unit) tablet Take 1 tablet (2,000 Units total) by mouth 1 (one) time each day. 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 Obstructive sleep apnea 09/27/2016 Overview (01/21/2024): mild [facility] Home Sleep Apnea Test: Date 09/16/2018; [...] Type 2 diabetes mellitus wit hout complication ([facility] V24, [facility] V28) 09/27/2016 Avascular necrosis of bone o f hip ([facility] V24, [facility] V28) 06/07/2016 Asthma 05/11/2016 Diverticulosis of intestine 05/11/2016 Encounters Date Type Department Care Team Description 11/10/2024 1:15 PM EDT Office Visit [place] [facility] [address] [place] [address] Payton iWn PA Type 2 diabetes mellitus without complication, unspecified whether watermaster insulin use ([facility] V24, [facility] V28) (Primary Dx) 11/05/2024 Lab Requisition [facility] - Main Lab [address] [facility] [place] [address] Corona Ryan PA Calculus of kidney 09/02/2024 2:15 PM EDT Office Visit Internal Medicine - [place] [address] [facility] [address] [place] [address] aFrnaz Shipley NP Type 2 diabetes mellitus without complication, unspecified whether watermaster insulin use ([facility] V24, [facility] V28) (Primary Dx); Hypertriglyceridemia ; Hypertension, unspecified type; Asthma with COPD ([facility] V24, [facility] V28); H/O testicular cancer; [...] Mediastinal malignancy excision OTHER SURGICAL HISTORY PROCEDURE: MN UNLISTED PROCEDURE DIAPHRAGM Medical History Medical History Date Comments Depression 01/23/2017 DX:Depression History of testicular cancer 01/23/2017 DX: History of testicular cancer Asthma 05/11/2016 DX:Asthma Avascular necrosis of bone o f hip ([facility] V24, [facility] V28) 06/07/2016 DX:Avascular necrosis of bon e of hip ([facility]) 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 Diverticulosis of intestine 05/11/2016 DX:D iverticulosis of intestine History of renal calculi 12/30/2015 DX:Hist ory of renal calculi Hypertension 12/11/2016 DX:Hypertension Hypertriglyceridemia 12/11/2016 DX:Hypertri glyceridemia Obstructive sleep apnea syndrome 09/27/2016 DX:Obstructive sleep apnea syndrome Type 2 diabetes mellitus wit hout complication (CMS/HCC V24, CMS/HCC V28) 09/27/2016 DX:Type 2 diab etes mellitus without complication (HCC) History of malignant [...] Sign Reading Time Taken Comments Blood Pressure 118/72 11/10/2024 1:31 PM EDT Pulse 94 11/10/2024 1:31 PM EDT Temperature 36.1 C (96.9 F) 11/10/2024 1:31 PM EDT Respiratory Rate 17 03/25/2024 8:33 PM EST Oxygen Saturation 97% 09/02/2024 1:42 PM EDT Inhaled Oxygen Concentration - - Weight 73.8 kg (162 lb 9.6 oz) 11/10/2024 1:31 P M EDT Height 160 cm (5' 3 ) 11/10/2024 1:31 PM EDT Body Mass Index 28.8 11/10/2024 1:31 PM EDT Plan of Treatment Upcoming Encounters Date Type Department Care Team (Late st Contact Info) Description 12/29/2024 2:00 PM EDT Office Visit Endocrinology - [place] [address] [place] [address] Payton Win PA [address] [place] [address] 03/09/2025 1:30 PM EST Office Visit Internal Medicine - [place] [address] [place] [phone] Myrna Clemens MD [address] [place] [address] Health Maintenance Due Date Last Done Comments Diabetes: Annual Foot Exam 1987 Hepatitis B Vaccines (1 of 3 - 19+ 3-dose series) 02/04/1996 Pneumococcal Vaccine: Pediatrics (0 to 5 Years) and At-Risk Patients (6 to 49 Years) (1 of 2 - PCV) 02/04/1996 Colorectal Cancer Screening: Colonoscopy 02/25/2022 HIV Screening 02/25/2022 Hepatitis C Screening 02/25/2022 Social Influencers of Health Screening 02/25/2022 Depression Screening 03/25/2024 COVID-19 Vaccine ( season) 2024 03/29/2022, 08/03/2020, 07/06/2020 Influenza Vaccine (#1) 2024 12/27/2017, 2016 Diabetes: Annual Retina Eye Exam 02/25/2025 02/26/2024, 04/18/2023 Diabetes: Annual Urine Albumin-Creatinine Ratio (uACR) 05/12/2025 05/12/2024, 05/10/2023 Diabetes: Annual GFR (Glomerular Filtration Rate) 05/12/2025 05/12/2024, 03/25/2024, 11/08/2023, Additional history exists Hypertension/CHF/CAD Annual BMP Blood Test 05/12/2025 05/12/2024, 03/25/2024, 11/08/2023, Additional history exists Diabetes: Blood Sugar Control Test (HGBA1C) 05/13/2025 11/10/2024, 05/12/2024, 11/08/2023, Additional history exists DTaP,Tdap,and Td Vaccines [...] Procedure Name Priority Date/Time Associated Diagnosis Comments HEMOGLOBIN A1C Routine 11/10/2024 2:02 PM EDT Type 2 diabetes mellitus without complication, unspecified whether watermaster insulin use ([facility] V24, [facility] V28) POC GLUCOSE Routine 11/10/2024 1:54 PM EDT Type 2 diabetes mellitus without complication, unspecified whether watermaster insulin use ([facility] V24, [facility] V28) PARATHYROID HORMONE INTACT Routine 11/05/2024 10:18 AM EDT Calculus of kidney MICROALBUMIN CREATININE URINE RATIO Routine 05/12/2024 2:17 PM EST Type 2 diabetes mellitus without complication, unspecified whether watermaster insulin use ([facility] V24, [facility] V28) BASIC METABOLIC PANEL Routine 05/12/2024 2:17 PM EST Type 2 diabetes mellitus without complication, unspecified whether detention insulin use ([facility] V24, [facility] V28) LIPID PANEL WITH REFLEX TO DIRECT LDL Routine 05/12/2024 2:17 PM EST Type 2 diabetes mellitus without complication, unspecified whether detention insulin use ([facility] V24, [facility] V28) DIABETES EYE EXAM Routine 04/18/2023 from Last 3 Months or Most Recently Relevant to Health Maintenance Results * Hemoglobin A1c (11/10/2024 2:02 PM EDT) Hemoglobin A1C 5.6 <6.5 % LAB CHEMISTRY METHOD 11/10/2024 9:22 PM EDT [facility] Mean Bld Glu Estim. 114 mg/dL LAB CHEMISTRY METHOD 11/10/2024 9:22 PM EDT [facility] Blood Venous blood specimen / Unknown Venipuncture / Unknown 11/10/2024 2:02 PM EDT 11/10/2024 2:02 PM EDT Payton LUCERO LAB BLOOD ORDERABLES Final Result [facility] [address] [place] [address], [place] [phone] * POC glucose manually resulted (11/10/2024 1:54 PM EDT) Glucose POC 400 mg/dL Blood Capillary blood specimen / Unknown 11/10/2024 1:54 PM EDT Payton LUCERO POINT OF CARE TEST ENTER/ED IT ORDERABLES Final Result * Parathyroid hormone intact (11/05/2024 10:18 AM EDT) PTH 62.9 18.5 - 88.0 pcg/mL LAB CHEMISTRY METHOD 11/05/2024 2:08 PM EDT [facility] Blood Venous blood specimen / Unknown 11/05/2024 10:18 AM EDT 11/05/2024 12:29 PM EDT us Corona LUCERO LAB BLOOD ORDERABLES Final Result [facility] [address] [place] [address], [place] [phone] * (ABNORMAL) Lipid panel with reflex to direct LDL (05/12/2024 2:17 PM EST) Cholesterol 209(H) 0 - 200 mg/dL LAB CHEMISTRY METHOD 05/12/2024 5:23 PM EST [facility] Triglycerides 96 0 - 150 mg/dL LAB CHEMISTRY METHOD 05/12/2024 5:23 PM EST [facility] HDL 76 >=40 mg/dL LAB CHEMISTRY METHOD 05/12/2024 5:23 PM EST [facility] LDL Calculated 114(H) 0 - 100 mg/dL LAB CHEMISTRY METHOD 05/12/2024 5:23 PM EST [facility] VLDL Cholesterol Robert 19.2 mg/dL LAB CHEMISTRY METHOD 05/12/2024 5:23 PM EST [facility] Non HDL Chol. (LDL+VLDL) 133 <145 mg/dL LAB CHEMISTRY METHOD 05/12/2024 5:23 PM EST [facility] Chol/HDL Ratio 2.8 0.0 - 4.4 LAB CHEMISTRY METHOD 05/12/2024 5:23 PM [facility] Blood Venous blood specimen / Unknown Venipuncture / Unknown 05/12/2024 2:17 PM EST 05/12/2024 2:17 PM EST Payton LUCERO LAB BLOOD ORDERABLES Final Result [facility] [address] [place] [address], [place] [phone] * Microalbumin creatinine urine ratio (05/12/2024 2:17 PM EST) Creatinine, Urine 143.0 mg/dL LAB CHEMISTRY METHOD 05/12/2024 5:41 PM [facility] Microalb, Ur 21.0 0.0 - 29.0 mg/L LAB CHEMISTRY METHOD 05/12/2024 5:41 PM [facility] Microalb/Creat Ratio 15 <30 mg/g creat LAB CHEMISTRY METHOD 05/12/2024 5:41 PM [facility] Urine Urine specimen from urethra / Unknown Non-blood Collection / Unknown 05/12/2024 2:17 PM EST 05/12/2024 2:17 PM EST us Payton LUCERO LAB URINE ORDERABLES Final Result [facility] [address] [place] [address], [place] [phone] * (ABNORMAL) Basic metabolic panel (05/12/2024 2:17 PM EST) Sodium 143 133 - 145 mmol/L LAB CHEMISTRY METHOD 05/12/2024 5:20 PM [facility] Potassium 3.5 3.5 - 5.5 mmol/L LAB CHEMISTRY METHOD 05/12/2024 5:20 PM [facility] Chloride 108 96 - 110 mmol/L LAB CHEMISTRY METHOD 05/12/2024 5:20 PM [facility] CO2 27 21 - 32 mmol/L LAB CHEMISTRY METHOD 05/12/2024 5:20 PM [facility] Anion Gap 8 3 - 11 LAB CHEMISTRY METHOD 05/12/2024 5:20 PM [facility] Glucose 105(H) 70 - 100 mg/dL LAB CHEMISTRY METHOD 05/12/2024 5:20 PM [facility] BUN 11 5 - 25 mg/dL LAB CHEMISTRY METHOD 05/12/2024 5:20 PM [facility] Creatinine 0.92 0.70 - 1.30 mg/dL LAB CHEMISTRY METHOD 05/12/2024 5:20 PM EST [facility] eGFR 103 >=60 mL/min/1. 73m2 LAB CHEMISTRY METHOD 05/12/2024 5:20 PM EST [facility] Comment:Calculation based on the Chronic Kidney Disease Epidemiology Collaboration (CKD-EPI) equation refit without adjustment for race. BUN/Creatinine Ratio 12.0 LAB CHEMISTRY METHOD 05/12/2024 5:20 PM EST [facility] Calcium 9.1 8.5 - 10.5 mg/dL LAB CHEMISTRY METHOD 05/12/2024 5:20 PM EST [facility] Blood Venous blood specimen / Unknown Venipuncture / Unknown 05/12/2024 2:17 PM EST 05/12/2024 2:17 PM EST Payton LUCERO LAB BLOOD ORDERABLES Final Result [facility] [address] [place] [address], * Diabetes Eye Exam (04/18/2023) Pathologist [facility] Diabetes: Annual Retina Eye Exam Abstracted Historical Provider HEALTH MAINTENANCE Final Result from Last 3 Months or Most Recently Relevant to Health Maintenance Insurance [employer] Care Teams Marketing Services Manager Relationship Specialty Start Date End Date Myrna Clemens MD [address] [place] [phone] PCP - General Internal Medicine 06/30/20
== END 2024-11-25 14:23 | disposition home or self-care (01) ==
PROVIDERS: PCP Internal Medicine; Visit Provider Anesthesiology
DX: M54.50 Low back pain, unspecified (principal); M25.511 Pain in right shoulder; M25.512 Pain in left shoulder; M54.9 Dorsalgia, unspecified; G89.4 Chronic pain syndrome
CPT/HCPCS: 99213

== ENCOUNTER → 2024-11-25 14:00 | Outpatient (BNVA) | payer OTHER, SELFPAY | PROVIDERS: PCP Internal Medicine; Visit Provider Anesthesiology | DX: M25.511 Pain in right shoulder (principal); M25.512 Pain in left shoulder; M54.50 Low back pain, unspecified; G89.4 Chronic pain syndrome | CPT/HCPCS: 99212 ==

== ENCOUNTER 2024-11-26 10:47 | Outpatient (AMB) | payer OTHER, SELFPAY ==
[2024-11-26 10:52] VITALS: BP 100/60; PULSE 70; O2SAT 98; BMI 27.6
--- NOTE | 2024-11-26 10:52 | MHC.OFFVIS ---
Vital Signs 11/26/24 10:52 Height 5 ft 4 in Weight 160 lb 14.999 oz BMI 27.6 BP 100/60 Blood Pressure Location Lt brachial Position Sitting Pulse 70 Pulse Source Pulse Oximeter Pulse Oximetry (%) 98 Oxygen Delivery Method Room Air Intake Visit Reasons: Asthma Accompanied by: Self / Same As Patient Allergies No Known Allergies Allergy (Verified 11/26/24 10:55) HPI Comments Details: The patient is 49 y/o man with a history of asthma in addition to obstructive sleep apnea. We did switch his mask the last visit and is tolerating it much better. He is also getting supplies regularly now. The CPAP therapy continues to be affecting beneficial. He is using more than 4 hours a night. His asthma appears to be in better control. He continues to use his respiratory regimen including his allergy medicine. He is not using the short-acting beta agonist more than twice a week. He has been complaining of other issues including arthralgias and what appears to be neuropathic pain. He is having hard time sleeping with it. Therefore affecting his daytime drowsiness. He does have a prescription of gabapentin but he is not using it at this time as prescribed. I requested that I can at least use it at nighttime to can help him sleep in also helping with the pain. 05/10/2023 the patient is here for a pulmonary follow-up visit. The patient overall continues have multiple complaints. Breathing though he has been doing well. Continues in his respiratory inhalers with good effect. Also the CPAP therapy has been affecting beneficial. He does use it for more than 4 hours a night. His adherence is 100%. He can not be without it. The patient needs to be able to get supplies from his [employer]. I will make sure to do that. Although at this point the machine that he has been using his older than 10 years. We had requested a replacement machine but for some reason he did not get 1. I do believe that for better response to therapy a new machine will be able to be monitor closely and adjusted accordingly. Will go ahead and request the replacement machine at this time from his [employer] company. Also having issues significant pain. He was evaluated from a rheumatological standpoint. Significant small joint discomfort. Both the risk and also the elbows. The patient has been on the Plaquenil that initially he stopped but then he is going to restart. He was concerned about some of the side effects. In addition to that I give him a short course of prednisone to try to help him with that. He is also having abdominal discomfort. Did have a previous endoscopic biopsy demonstrating the possibility of celiac disease. Therefore, will go ahead and give her some prednisone and also requesting blood work to assess further diagnosis of potential celiac with his underlying diabetes. The patient may benefit from a referral to a dieitian if that i the case. 09/06/2023 the patient is here for pulmonary follow-up visit. The patient overall has been doing fairly well from a respiratory status. He continues to use his respiratory therapy as prescribed. Has not had to use any prednisone or rescue therapy. He continues to also use CPAP at nighttime. CPAP therapy continues to be affecting beneficial. He does uses CPAP more than 4 hours A night. He really can not sleep without the CPAP because of his diaphragmatic injury. However, he has been complaining of worsening cough. Nonproductive in nature. Moderate severity. Affecting sleep. The patient is taking small dose of RON inhibitor. He is going to go ahead and start that to see there is any improvement. Will monitor closely his blood pressure. In addition to that the benzo night may be helpful just subsiding the cough sensation. If he has no better he can call for further evaluation. 01/07/2024 the patient is here for pulmonary follow-up visit. Overall he is having multiple complaints. He is having significant back pains and difficulty sleeping. Breathing is always an issue with dyspnea on exertion. [id number] severity. He has been using the CPAP and CPAP continues to be very affecting beneficial for him. He does use it for more than 4 hours a night. He has been getting supplies from the [employer]. In addition to that he was given gabapentin for sleep. It will also help his back issues in therefore did encourage him to use it. I will recently to the pharmacy. In regards of his connective tissue disease is not clear if is manifesting although he does have an elevated double-stranded DNA. He was evaluated by Rheumatology. At this point will keeping the Plaquenil to see if this provides him help. He did have his eyes checked and will continue to have his eyes checked. In continue the low dose of 200 daily. He will continue with current respiratory therapy follow-up in 4 months. He will have a chest x-ray and lumbar x-rays today. 05/08/2024 the patient is here for pulmonary follow-up visit. Overall he is doing better now. Back in the beginning of March he did develop worsening respiratory symptoms flu-like symptoms and was actually diagnosed with RSV. He was in the hospital at [facility]. There he did have a CT scan. I am going to request a report. He was subsequently discharged on antibiotics and prednisone. He now is doing better. Although he did have some achiness in the bilateral back on the lungs. He continues uses CPAP in the CPAP has been affecting beneficial. He also continues to use his respiratory inhalers with good response. Will have him get an x-ray specially since he had this significant infection back in March and also been having significant left hand discomfort will have x-rays as well. Patient will follow-up in 3-4 months. If he has any worsening issues she will call for an earlier assessment. 06/26/2024 the patient is here for a pulmonary follow-up visit. Overall the patient is doing okay. He did have some testicular pain and swelling and he did get an ultrasound showing the hydrocele. He is following closely with oncology though because of his history of testicular cancer. In addition to that he continues uses CPAP every night. CPAP therapy has been affecting beneficial. He does use it for more than 4 hours a night. The patient has been using his respiratory inhalers. He has also been on the Plaquenil because he had a positive double-stranded DNA has significant arthritic knees. He continues to have multiple complaints. Will make sure to put a referral in order for him to follow-up with Rheumatology this time. 11/26/2024 the patient is here for pulmonary follow-up visit. Overall the patient has been doing well from respiratory status. Continues to have dyspnea on exertion. But as long as he can keep his weight down to at least 170 or less typically he breathes better. Diabetes has been better controlled. The patient has been using the CPAP. CPAP therapy continues to be very affecting beneficial. He does use it 100% of the time more than 4 hours a night. His AHI is good. I will will send regional his [employer] a script for additional supplies his asthma pumps have been effective. No additional prednisone or antibiotics have been required. He does have issues due to his chronic pain issues and inflammatory arthritis. He needs to follow-up with Rheumatology soon. For now he has been on the Plaquenil. 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 Gender identity: Male Review of Systems Const Denies difficulty sleeping, Denies snoring and Reports weakness ENT Reports no additional complaints and Reports neck pain Card Reports chest pain and Reports dyspnea Resp Reports cough, Reports dyspnea and Denies snoring GI Reports abdominal pain Reports no additional complaints Musc Reports as per HPI, Reports back pain, Reports myalgias, Reports limited range of motion, Reports muscle weakness, Reports neck pain, Reports numbness and Reports radiating pain into limb Neuro Reports numbness and Reports weakness Psych Reports anxiety and Reports depression Physical Exam Vital Signs: Last Vital Signs Pulse 70 11/26/24 10:52 BP 100/60 11/26/24 10:52 Pulse Ox 98 11/26/24 10:52 Oxygen Delivery Method Room Air 11/26/24 10:52 BMI result Body Mass Index 27.6 Const General: alert Neck Neck: Yes normal visual inspection, Yes full ROM and Yes no lymphadenopathy Chest Chest palpation & inspection: normal inspection of the chest Resp Auscultation: no crackles, no rales and diminished lung sounds Cardio Rate: regular rate Rhythm: regular rhythm Heart sounds: S1 normal heart sound present and S2 normal heart sound present GI Palpation (GI): Soft to palpation and nontender Auscultation: normal bowel sounds General: Yes CVA tenderness Back/Spine/Pelvis Back: CVA tenderness Skin General skin exam: rashes and/or lesions noted Extrem General: No clubbing and No cyanosis Assessment & Plan Assessment & Plan (1) Asthma: Code(s): J45.909 - Unspecified asthma, uncomplicated Category: Medical Qualifiers: Asthma complication type: uncomplicated Asthma persistence: persistent Asthma severity: moderate Qualified Code(s): J45.40 - Moderate persistent asthma, uncomplicated (2) BETHEL on CPAP: Code(s): G47.33 - Obstructive sleep apnea (adult) (pediatric); Z99.89 - Dependence on other enabling machines and devices Category: Medical (3) Chronic restrictive lung disease: Code(s): J98.4 - Other disorders of lung Category: Medical (4) Dyspnea: Comment: multifactorial. 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 Code(s): J98.6 - Disorders of diaphragm Category: Medical (6) Lymphadenopathy: Code(s): R59.1 - Generalized enlarged lymph nodes Category: Medical (7) Back pain: Code(s): M54.9 - Dorsalgia, unspecified Category: Medical Qualifiers: Back pain laterality: unspecified Back pain location: low back pain Chronicity: unspecified Sciatica presence: unspecified whether sciatica present Qualified Code(s): M54.50 - Low back pain, unspecified (8) Arthritis: Code(s): M19.90 - Unspecified osteoarthritis, unspecified site Category: Medical Plan continue with APAP, continue Symbicort continue Singulair continue plaquenil continue gabapentin benzonates as needed F/U 8-12 months Coding Level of Care Code Est Pt Level 4 (84460) Complex EM visit Add On G2211 Diagnoses Moderate persistent asthma without complication J45.40 Asthma complication type: uncomplicated Asthma persistence: persistent Asthma severity: moderate BETHEL on CPAP G47.33; Z99.89 Chronic restrictive lung disease J98.4 Dyspnea on exertion R06.00 Dyspnea type: dyspnea on exertion Paralysis, diaphragm J98.6 Lymphadenopathy R59.1 Low back pain, unspecified back pain laterality, unspecified chronicity, unspecified whether sciatica present M54.50 Back pain laterality: unspecified Back pain location: low back pain Chronicity: unspecified Sciatica presence: unspecified whether sciatica present Arthritis M19.90 Time Spent (min) 17
--- OUTSIDE RECORDS SUMMARY | 2024-11-26 12:24 | XMS_ITS | Encounter Summary ---
Author Organization [facility] Address [address] [place] [address] Care Team Providers Care Shotblast Equipment Operator Name Role Phone Myrna Clemens MD Primary Care Provider [phone] Encounter Details Date Type Department Care Team (Late Contact Info) Description 11/05/2024 Lab Requisition [facility] - Main Lab [address] [facility] [place] [address] Corona Ryan PA [address] [facility] [address] [place] [address] Calculus of kidney Social History [...] 12/29/2024 2:00 PM EDT Office Visit Endocrinology [place] [id number] [place] [address] Payton Win PA [address] [place] [address] 03/09/2025 1:30 PM EST Office Visit Internal Medicine - [place] [address] [facility] [address] [place] [address] Myrna Clemens MD [address] [place] [phone] documented as of this encounter Procedures Procedure Name Priority Date/Time Associated Diagnosis Comments PARATHYROID HORMONE INTACT Routine 11/05/2024 10:18 AM EDT Calculus of kidney documented in this encounter Results * Parathyroid hormone intact (11/05/2024 10:18 AM EDT) PTH 62.9 18.5 - 88.0 pcg/mL LAB CHEMISTRY METHOD 11/05/2024 2:[address] [facility] Blood Venous blood specimen / Unknown 11/05/2024 10:18 AM EDT 11/05/2024 12:29 PM EDT Corona LUCERO LAB BLOOD ORDERABLES Final Result [facility] [address] [place] [address], documented in this encounter Visit Diagnoses Diagnosis Calculus of kidney documented in this encounter Care Teams Shotblast Equipment Operator Relationship Specialty Start Date End Date Myrna Clemens MD [address] [phone] PCP - General Internal Medicine 06/30/20 documented as of this encounter
--- OUTSIDE RECORDS SUMMARY | 2024-11-26 12:24 | XMS_ITS | Clinical Summary ---
Author Organization 175 [facility] Address [address] [place] [address] Phone Care Team Providers Care Labor Specialist Name Role Phone Myrna Clemens MD Primary Care Provider [phone] Allergies No known active allergies Medications albuterol [...] Left inguinal hernia 09/30/2017 Asthma with COPD ([facility] V24, [facility] V28) 07/2017 Depression 01/23/2017 Hypertension 12/11/2016 Hypertriglyceridemia 12/11/2016 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 Obstructive sleep apnea 09/27/2016 Overview (01/21/2024): mild [facility] Home Sleep Apnea Test: Date 09/16/2018; [...] Type 2 diabetes mellitus wit hout complication ([facility] V24, [facility] V28) 09/27/2016 Avascular necrosis of bone o f hip ([facility] V24, [facility] V28) 06/07/2016 Asthma 05/11/2016 Diverticulosis of intestine 05/11/2016 Encounters Date Type Department Care Team Description 11/10/2024 1:15 PM EDT Office Visit Endocrinology [facility] [address] [place] [address] Payton Win PA Type 2 diabetes mellitus without complication, 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 ([facility] V24, [facility] V28) (Primary Dx) 11/05/2024 Lab Requisition [facility] - Main Lab [address] [facility] [place] [address] Corona Ryan PA Calculus of kidney 09/02/2024 2:15 PM EDT Office Visit Internal Medicine - [place] [address] [facility] [address] [place] [address] Farnaz Shipley NP Type 2 diabetes mellitus without complication, 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 ([facility] V24, [facility] V28) (Primary Dx); Hypertriglyceridemia ; Hypertension, unspecified type; Asthma with COPD ([facility] V24, [facility] V28); H/O testicular cancer; Fibromyalgia; Kidney stones; [...] Mediastinal malignancy excision OTHER SURGICAL HISTORY PROCEDURE: RI UNLISTED PROCEDURE DIAPHRAGM Medical History Medical History Date Comments Depression 01/23/2017 DX:Depression History of testicular cancer 01/23/2017 DX: History of testicular cancer Asthma 05/11/2016 DX:Asthma Avascular necrosis of bone o f hip ([facility] V24, [facility] V28) 06/07/2016 DX:Avascular necrosis of bon e [...] 2:00 PM EDT Office Visit Endocrinology - [place] [address] [place] [address] Payton Win PA [address] [place] [address] 03/09/2025 1:30 PM EST Office Visit Internal Medicine - [place] [address] [place] [phone] Myrna Clemens MD [address] [place] [address] Health Maintenance Due Date Last Done Comments [...] 2 diabetes mellitus without complication, 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 ([facility] V24, [facility] V28) POC GLUCOSE Routine 11/10/2024 1:54 PM EDT Type 2 diabetes mellitus without complication, 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 ([facility] V24, [facility] V28) PARATHYROID HORMONE INTACT Routine 11/05/2024 10:18 AM EDT Calculus of kidney MICROALBUMIN CREATININE URINE RATIO Routine 05/12/2024 2:17 PM EST Type 2 diabetes mellitus without complication, 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 ([facility] V24, [facility] V28) BASIC METABOLIC PANEL Routine 05/12/2024 2:17 PM EST Type 2 diabetes mellitus without complication, unspecified whether fci insulin use ([facility] V24, [facility] V28) LIPID PANEL WITH REFLEX TO DIRECT LDL Routine 05/12/2024 2:17 PM EST Type 2 diabetes mellitus without complication, unspecified whether fci insulin use ([facility] V24, [facility] V28) DIABETES EYE EXAM Routine 04/18/2023 from Last 3 Months or Most Recently Relevant to Health Maintenance Results * Hemoglobin A1c (11/10/2024 2:02 PM EDT) Hemoglobin A1C 5.6 <6.5 % LAB CHEMISTRY METHOD 11/10/2024 9:22 PM EDT [facility] Mean Bld Glu Estim. 114 mg/dL LAB CHEMISTRY METHOD 11/10/2024 9:22 PM EDT [facility] Blood Venous blood specimen / Unknown Venipuncture / Unknown 11/10/2024 2:02 PM EDT 11/10/2024 2:02 PM EDT Payton LUCERO LAB BLOOD ORDERABLES Final Result [facility] [address] [place] [address], [place] [phone] * POC glucose manually resulted (11/10/2024 1:54 PM EDT) Glucose POC 400 mg/dL Blood Capillary blood specimen / Unknown 11/10/2024 1:54 PM EDT Payton LUCERO POINT OF CARE TEST ENTER/ED IT ORDERABLES Final Result * Parathyroid hormone intact (11/05/2024 10:18 AM EDT) PTH 62.9 18.5 - 88.0 pcg/mL LAB CHEMISTRY METHOD 11/05/2024 2:08 PM EDT [facility] Blood Venous blood specimen / Unknown 11/05/2024 10:18 AM EDT 11/05/2024 12:29 PM EDT us Corona LUCERO LAB BLOOD ORDERABLES Final Result [facility] [address] [place] [address], [place] [phone] * (ABNORMAL) Lipid panel with reflex to direct LDL (05/12/2024 2:17 PM EST) Cholesterol 209(H) 0 - 200 mg/dL LAB CHEMISTRY METHOD 05/12/2024 5:23 PM EST [facility] Triglycerides 96 0 - 150 mg/dL LAB CHEMISTRY METHOD 05/12/2024 5:23 PM EST [facility] HDL 76 >=40 mg/dL LAB CHEMISTRY METHOD 05/12/2024 5:23 PM EST [facility] LDL Calculated 114(H) 0 - 100 mg/dL LAB CHEMISTRY METHOD 05/12/2024 5:23 PM EST [facility] VLDL Cholesterol Robert 19.2 mg/dL LAB CHEMISTRY METHOD 05/12/2024 5:23 PM EST [facility] Non HDL Chol. (LDL+VLDL) 133 <145 mg/dL LAB CHEMISTRY METHOD 05/12/2024 5:23 PM EST [facility] Chol/HDL Ratio 2.8 0.0 - 4.4 LAB CHEMISTRY METHOD 05/12/2024 5:23 PM [facility] Blood Venous blood specimen / Unknown Venipuncture / Unknown 05/12/2024 2:17 PM EST 05/12/2024 2:17 PM EST Payton LUCERO LAB BLOOD ORDERABLES Final Result [facility] [address] [place] [address], [place] [phone] * Microalbumin creatinine urine ratio (05/12/2024 2:17 PM EST) Creatinine, Urine 143.0 mg/dL LAB CHEMISTRY METHOD 05/12/2024 5:41 PM [facility] Microalb, Ur 21.0 0.0 - 29.0 mg/L LAB CHEMISTRY METHOD 05/12/2024 5:41 PM [facility] Microalb/Creat Ratio 15 <30 mg/g creat LAB CHEMISTRY METHOD 05/12/2024 5:41 PM [facility] Urine Urine specimen from urethra / Unknown Non-blood Collection / Unknown 05/12/2024 2:17 PM EST 05/12/2024 2:17 PM EST us Payton LUCERO LAB URINE ORDERABLES Final Result [facility] [address] [place] [address], [place] [phone] * (ABNORMAL) Basic metabolic panel (05/12/2024 2:17 PM EST) Sodium 143 133 - 145 mmol/L LAB CHEMISTRY METHOD 05/12/2024 5:20 PM [facility] Potassium 3.5 3.5 - 5.5 mmol/L LAB CHEMISTRY METHOD 05/12/2024 5:20 PM [facility] Chloride 108 96 - 110 mmol/L LAB CHEMISTRY METHOD 05/12/2024 5:20 PM [facility] CO2 27 21 - 32 mmol/L LAB CHEMISTRY METHOD 05/12/2024 5:20 PM [facility] Anion Gap 8 3 - 11 LAB CHEMISTRY METHOD 05/12/2024 5:20 PM [facility] Glucose 105(H) 70 - 100 mg/dL LAB CHEMISTRY METHOD 05/12/2024 5:20 PM [facility] BUN 11 5 - 25 mg/dL LAB CHEMISTRY METHOD 05/12/2024 5:20 PM [facility] Creatinine 0.92 0.70 - 1.30 mg/dL LAB CHEMISTRY METHOD 05/12/2024 5:20 PM EST [facility] eGFR 103 >=60 mL/min/1. 73m2 LAB CHEMISTRY METHOD 05/12/2024 5:20 PM EST [facility] Comment:Calculation based on the Chronic Kidney Disease Epidemiology Collaboration (CKD-EPI) equation refit without adjustment for race. BUN/Creatinine Ratio 12.0 LAB CHEMISTRY METHOD 05/12/2024 5:20 PM EST [facility] Calcium 9.1 8.5 - 10.5 mg/dL LAB CHEMISTRY METHOD 05/12/2024 5:20 PM EST [facility] Blood Venous blood specimen / Unknown Venipuncture / Unknown 05/12/2024 2:17 PM EST 05/12/2024 2:17 PM EST Payton LUCERO LAB BLOOD ORDERABLES Final Result [facility] [address] [place] [address], * Diabetes Eye Exam (04/18/2023) Pathologist [facility] Diabetes: Annual Retina Eye Exam Abstracted Historical Provider HEALTH MAINTENANCE Final Result from Last 3 Months or Most Recently Relevant to Health Maintenance Insurance [facility] [employer] [facility] Care Teams Labor Specialist Relationship Specialty Start Date End Date Myrna Clemens MD [address] [place] [phone] PCP - General Internal Medicine 06/30/20
== END 2024-11-26 13:07 | disposition home or self-care (01) ==
LOC: HO.HPS 10:48
PROVIDERS: PCP Internal Medicine; Visit Provider Hospitalist
DX: J45.40 Moderate persistent asthma, uncomplicated (principal); G47.33 Obstructive sleep apnea (adult) (pediatric); Z99.89 Dependence on other enabling machines and devices; J98.4 Other disorders of lung; R06.00 Dyspnea, unspecified; J98.6 Disorders of diaphragm; R59.1 Generalized enlarged lymph nodes; M54.50 Low back pain, unspecified; M19.90 Unspecified osteoarthritis, unspecified site
CPT/HCPCS: 99214

== ENCOUNTER → 2024-11-26 10:47 | Outpatient (BNVA) | payer OTHER, SELFPAY | PROVIDERS: PCP Internal Medicine; Visit Provider Hospitalist | DX: J45.40 Moderate persistent asthma, uncomplicated (principal); J98.4 Other disorders of lung; G47.33 Obstructive sleep apnea (adult) (pediatric); R06.00 Dyspnea, unspecified; J98.6 Disorders of diaphragm; R59.1 Generalized enlarged lymph nodes; M54.50 Low back pain, unspecified; M19.90 Unspecified osteoarthritis, unspecified site; Z99.89 Dependence on other enabling machines and devices | CPT/HCPCS: 99212 ==

== ENCOUNTER 2025-02-11 10:21 | Outpatient (AMB) | payer OTHER, SELFPAY ==
--- NOTE | 2025-02-11 10:48 | A.OFFVIS_ITS ---
Vital Signs 02/11/25 10:49 Height 5 ft 3 in Weight 169 lb 15.622 oz BMI 30.1 BP 100/70 Blood Pressure Location Lt brachial Position Sitting Pulse 96 Pulse Source Pulse Oximeter Pulse Oximetry (%) 96 Oxygen Delivery Method Room Air Intake Visit Reasons: osteoarthritis Intake Note: Patient presents today for osteoarthritis Financial Management Name: [id number] pito Accompanied by: Self / Same As Patient Allergies No Known Allergies Allergy (Verified 02/11/25 10:53) HPI HPI osteoarthritis: Details: Persian speaking. Video interpreter translator used. History of +dsDNA but negative crithidia, BRIAN 1:320. He has pain in joints for years since COVID-19 pandemic. He has used HCQ and gabapentin. He has held these medications for a week due to a procedure being planned for kidney stones. He has not been on hydroxychloroquine are gabapentin for 8 days because of the planned procedure. He reports that he has been compliant with taking these medicines consistently prior to 8 days ago. ROS is significant for blurred vision, feels like something is in his eyes. +Fatigue. Weight is stable. He feels left side of lungs is not working well. Chest pain since lung surgery. He is experiencing dyspnea. Denies fevers, oral ulcers, frothy bubbly urine. He has hematuria related to suspected kidney stones per patient. His muscles feel weak. No joint swelling. Sometimes he rash all over his body. He had a lower extremity rash for 7 years that resolved with a topical cream. Sometimes his finger tips turn blue when exposed to cold weather. When I showed him photos of raynaud's syndrome he denied episodes. Denies fever, dry eyes, dry mouth, oral ulcers, hearing loss, tinnitus, excessive thirst or feeling of to hot, nausea, vomiting, heartburn, difficulty swallowing, difficulty urination, frothy urine, dysuria, genital ulcers, joint swelling, muscle tenderness, morning stiffness, night sweats, paraesthesia, photosensitivity, hair loss, psoriasis, or swollen glands He received cortisone injection in knees 4 years ago at [facility] for treatment of knee pain. 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 Gender identity: Male Physical Exam Exam Exam: General: Comfortable CVS: RRR Respiratory: clear to auscultation bilaterally. Good respiratory effort Skin: No lesions seen MSK: Tender right MCPs, left PIP, right elbow, bilateral shoulders, bilateral knees. Normal range of motion of upper extremities. Bilateral knee crepitus palpated. Knee flexion 90 degrees. He has full external rotation and flexion of hips but with pain. No synovitis. No diffuse allodynia. Vital Signs: Last Vital Signs Pulse 96 02/11/25 10:49 BP 100/70 02/11/25 10:49 Pulse Ox 96 02/11/25 10:49 Oxygen Delivery Method Room Air 02/11/25 10:49 BMI result Body Mass Index 30.1 Results Reviewed Results Reviewed: Labs reviewed in expanse. Chest x-ray and CT chest reviewed in expanse. Assessment & Plan Assessment & Plan (1) BRIAN positive: Comment: History of positive serologies without connective tissue disease.+BRIAN 1:320, +dsDNA but negative more specific Crithidia testing for dsDNA 06/2022, 09/2023 SM/INSTALLATION COORDINATOR/normal complements without any other organ involvement. He continues to have joint pain without synovitis. On today's exam he does not have tender points to suggest active fibromyalgia. I will obtain workup to assess SLE activity. He has a history of left inguinal lymph node biopsy suggesting reactive lymph node with increase IgG4 polyclonal plasma cells. At this time, clinically he does not have signs or symptoms suggestive of IgG4 related disease. After reviewing results, my staff will reach out to patient in regards to considering trying off of HCQ if he continues to have stable labs with negative Crithidia. Rheumatology history: Hydroxychloroquine started March 2022 by pulmonologists due to joint pain. He has had periods of noncompliance. He currently reports that he has been compliant with taking hydroxychloroquine 200 daily. Left inguinal lymph node biopsy 04/17/2013 Reactive lymph node with follicular and paracortical hyperplasia, progressive transformation of germinal centers and increase IgG4 polyclonal plasma cells. September 2023 labs reveal elevated IgG4 level. Code(s): R76.8 - Other specified abnormal immunological findings in serum Category: Medical Plan: X-rays ordered to evaluate extent of osteoarthritis contributing to his pain Labs ordered Return to clinic in 3 months (2) Bilateral hip pain: Code(s): M25.551 - Pain in right hip; M25.552 - Pain in left hip Category: Medical Plan: X-ray bilateral hips ordered (3) Bilateral knee pain: Comment: Limited range of motion. He has had cortisone injections in the past years ago. Code(s): M25.561 - Pain in right knee; M25.562 - Pain in left knee Category: Medical Plan: X-ray bilateral knees ordered (4) Bilateral hand pain: Code(s): M79.641 - Pain in right hand; M79.642 - Pain in left hand Category: Medical Plan: X-ray bilateral hands ordered Orders: Orders C Reactive Protein 02/11/25 R76.0 - Raised antibody titer Anti DNA DS Antibody 02/11/25 R76.0 - Raised antibody titer Sm Sm/INSTALLATION COORDINATOR Antibodies 02/11/25 R76.0 - Raised antibody titer Complement C4 02/11/25 R76.0 - Raised antibody titer DNA Double Stranded-Crithidia 02/11/25 R76.0 - Raised antibody titer XR hips DAVID min 3V 02/11/25 M25.551 - Pain in right hip, M25.552 - Pain in left hip XR Knee David 3V 02/11/25 M25.561 - Pain in right knee, M25.562 - Pain in left knee Complete Blood Count Auto Diff 02/11/25 R76.0 - Raised antibody titer Alanine Aminotransferase 02/11/25 R76.0 - Raised antibody titer Protein Creatinine Ratio, Ur 02/11/25 R76.0 - Raised antibody titer Aspartate Amino Transferase 02/11/25 R76.0 - Raised antibody titer Creatinine 02/11/25 R76.0 - Raised antibody titer Erythrocyte Sedimentation Rate 02/11/25 R76.0 - Raised antibody titer Complement C3 02/11/25 R76.0 - Raised antibody titer XR Hand Bilat min 3v 02/11/25 M79.641 - Pain in right hand, M79.642 - Pain in left hand Coding Level of Care Code Est Pt Level 5 (93599) Complex visit Add On G2211 Diagnoses BRIAN positive R76.8 Bilateral hip pain M25.551; M25.552 Bilateral knee pain M25.561; M25.562 Bilateral hand pain M79.641; M79.642 Time Spent (min) 40
[2025-02-11 10:49] VITALS: BP 100/70; PULSE 96; O2SAT 96; BMI 30.1
== END 2025-02-11 11:51 | disposition home or self-care (01) ==
LOC: HO.RHES 10:22
PROVIDERS: PCP Internal Medicine; Visit Provider Internal Medicine Rheumatology
DX: R76.89 Other specified abnormal immunological findings in serum (principal); M25.551 Pain in right hip; M25.552 Pain in left hip; M25.561 Pain in right knee; M25.562 Pain in left knee; M79.641 Pain in right hand; M79.642 Pain in left hand
CPT/HCPCS: 99215

== ENCOUNTER → 2025-02-11 10:21 | Outpatient (BNVA) | payer OTHER, SELFPAY | PROVIDERS: PCP Internal Medicine; Visit Provider Internal Medicine Rheumatology | DX: M25.551 Pain in right hip (principal); M25.552 Pain in left hip; M25.561 Pain in right knee; M25.562 Pain in left knee; R76.89 Other specified abnormal immunological findings in serum | CPT/HCPCS: 99212 ==

== ENCOUNTER 2025-03-15 10:16 | Outpatient (REF) | payer OTHER, SELFPAY ==
--- OUTSIDE RECORDS SUMMARY | 2025-03-15 12:29 | XMS_ITS | Encounter Summary ---
Author Organization [facility] Address [address] [place] [address] Care Team Providers Care Impregnator [employer] Name Role Phone Myrna Clemens MD Primary Care Provider [phone] Encounter Details Date Type Department Care Team (Late st Contact Info) Description 12/01/2024 Lab Requisition [facility] - Main Lab [address] [facility] [place] [address] Yandel Rao, JAZMINE [address] [place] [address] Gross hematuria Social History Tobacco Use Types Packs/Day Years [...] Care Team (Late st Contact Info) Description 05/26/2025 11:00 AM EST Ancillary Procedure [facility] [address] [facility] [address] [place] [address] 08/12/2025 1:00 PM EDT Office Visit Internal Medicine - [place] [address] [facility] [address] [place] [address] Myrna Clemens MD [address] [place] [address] 08/31/2025 7:30 AM EDT Office Visit Endocrinology - [place] [address] [place] [address] Payton Win PA [address] [place] [address] documented as of this encounter Procedures Procedure Name Priority Date/Time Associated Diagnosis Comments NON-GYNECOLOGIC CYTOLOGY Routine 11/18/2024 12:00 AM EDT Gross hematuria documented in this encounter Results * Non-gynecologic cytology (11/18/2024 12:00 AM EDT) Final Diagnosis A. Urine, Voided, [id number]: Negative for high grade urothelial carcinoma. Results of [employer] fluorescence in situ hybridization (FISH) testing: CEP3: Normal CEP7: Normal CEP17: Normal LSI 9p21: Normal Interpretation: Normal profile Controls stained appropriately. Note: The results are intended as a screening device and should be interpreted in association with other clinical and pathological findings. 12/18/2024 6:04 PM EDT [facility] at 1804 EDT Specimen A Adequacy Satisfactory for evaluation 12/18/2024 6:04 PM EDT [facility] Clinical Information Gross hematuria R31.0 Urine Cytology/FISH (now) 12/18/2024 6:04 PM EDT [facility] Gross Description A. Urine, Voided, [id number]: Received one ThinPrep slide for cytology and one ThinPrep slide for [employer] FISH 12/18/2024 6:04 PM EDT [facility] Disclaimer Unless otherwise specified, all tissue is 10% NB formalin fixed and paraffin embedded. Technical pathology services provided by [facility] at [address] [facility] [address], [place] [address] (CLIA #[id number]/Alejandra Antunez MD, Water Valve Mechanic) 12/18/2024 6:04 PM EDT [facility] Urine Urine specimen from urethra / Unknown 11/18/2024 12/01/2024 11:59 AM EDT [facility] CYTOLOGY ORDERABLES Final R esult [facility] [address] [place] [address], documented in this encounter Visit Diagnoses Diagnosis Gross hematuria documented in this encounter Care Teams [employer]ator [employer]ly[employer] Relationship Specialty Start Date End Date Myrna Clemens MD [address] [phone] PCP - General Internal Medicine 06/30/20 documented as of this encounter
--- OUTSIDE RECORDS SUMMARY | 2025-03-15 12:29 | XMS_ITS | Clinical Summary ---
Author Organization 175 [facility] Address [address] [place] [address] Phone Care Team Providers Care Sql Developer Dba Name Role Phone Myrna Clemens MD Primary Care Provider [phone] Allergies No known active allergies Medications albuterol [...] Active diclofenac (VOLTAREN) 75 mg EC tablet 1 tablet (75 mg total) 1 (one) time each day if needed. 01/03/20 21 Active gabapentin (NEURONTIN) 400 mg capsule Take 1 capsule (400 mg total) by mouth at bedtime. Active hydroxychloroquin e (PLAQUENIL) 200 mg tablet 1 (one) time each day. 04/23/19 24 Active meloxicam (MOBIC) 7.5 mg tablet Take 1 tablet (7.5 mg total) by mouth 1 (one) time each day if needed. 07/14/19 21 Active montelukast (SINGULAIR) 10 mg tablet Take 1 tablet (10 mg total) by mouth at bedtime. 03/16/20 20 Active pantoprazole (PROTONIX) 40 mg EC tablet 1 tablet (40 mg total) 1 (one) time each day if needed. 03/30/19 19 Active PARoxetine (PAXIL) 30 mg tablet Take 1 tablet (30 mg total) by mouth 1 (one) time each day in the morning. 01/22/20 19 Active traZODone (DESYREL) 50 mg tablet Take 1 tablet (50 mg total) by mouth at bedtime. 02/22/20 18 Active [...] (100.4 F). 30 tablet 03/25/19 25 Active Additional Information Patient not taking.Reported on 03/09/2025 Symbicort 160-4.5 mcg/actuation inhaler Inhale 2 puffs by mouth 2 (two) times a day. 05/08/19 25 Active celecoxib (CeleBREX) 200 mg capsuleIndication s:Fibromyalgia Take 1 capsule (200 mg total) by mouth 1 (one) time each day. 60 capsule 5 08/28/19 25 Active Additional Information Patient not taking.Reported on 03/09/2025 traMADoL (ULTRAM) 50 mg tabletIndications :Kidney stones [...] MIREILLE 180 tablet 1 09/05/19 25 Active Additional Information Patient taking differently: 600 mg oral Daily, Reported on 03/09/2025 ammonium lactate (AMLACTIN) 12 % cream APPLY TO ARMS, TRUNK, AND LEGS DAILY 12/02/19 25 Active cetirizine (ZyrTEC) 10 mg tablet TOME MARTHA O DOS TABLETAS POR V A ORAL TODOS LOS D CUANDO SEA NECESARIO ITCHING 12/09/19 25 Active blood sugar diagnostic (FreeStyle Lite Strips) test stripIndications: Type 2 diabetes mellitus without complications, unspecified whether jail insulin use [place] [place], [facility] V28) Use daily to check bs 100 each 11 12/30/19 25 Active freestyle (FreeStyle Lancets) 28 gauge lancetsIndication s:Type 2 diabetes mellitus without complications, unspecified whether jail insulin use ([facility] V24, [facility] V28) Use daily to check bs 100 each 11 12/30/19 25 Active dulaglutide (Trulicity) 1.5 mg/0.5 mL pen injector injectionIndicati ons:Type 2 diabetes mellitus without complications, unspecified whether jail insulin use ([facility] [place], [facility] V28) Inject 0.5 mL (1.5 mg total) under the skin every 7 (seven) days. 6 mL 3 03/09/20 25 Active dulaglutide (Trulicity) 1.5 mg/0.5 mL pen injector injection Inject 0.5 mL (1.5 mg total) under the skin every 7 (seven) days. 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 Type 2 diabetes mellitus without complication Overview (12/23/2024): 12/23/24 Regulatory IMO Update Avascular necrosis of bone of hip 06/07/2016 Asthma 05/11/2016 Diverticulosis of intestine 05/11/2016 Encounters Date Type Department Care Team Description 03/09/2025 2:00 PM EST Lab Draw Station - [facility] [address] [place] [phone] Type 2 diabetes mellitus without complications, unspecified whether terminal gauger supervisor insulin use ([facility] V24, [facility] V28); Germinoma of mediastinum ([facility] V24, [facility] V28); Hypertriglyceridemia ; Primary hypertension 03/09/2025 1:30 PM EST Office Visit Internal Medicine - [place] [address] [facility] [address] [place] [phone] Myrna Clemens MD Adult general medical examination (Primary Dx); Type 2 diabetes mellitus without complications, unspecified whether jail insulin use ([facility] V24, [facility] V28); Germinoma of mediastinum ([facility] V24, [facility] V28); Hypertriglyceridemia ; Primary hypertension; Cardiac murmur 02/12/2025 7:45 AM EST Anesthesia Event [facility] [place] [address] [place] [address] [phone] Miriam Kenney MD Dickman, Christy L, CRNA 02/12/2025 7:30 AM EST - 02/12/2025 8:30 AM EST Surgery [facility] [place] [address] [place] [address] [phone] Pancho Denise MD ESWL - RIGHT [[id number] (CPT )] 02/12/2025 5:35 AM EST - 02/12/2025 9:58 AM EST Hospital Encounter [facility] [place] [address] [place] [address] [phone] Pancho Denise MD Discharge Disposition: Home or Self Care 12/29/2024 2:00 PM EDT Office Visit Endocrinology [address] [place] [phone] Payton Win PA Type 2 diabetes mellitus without complications, unspecified whether jail insulin use [place] [place], [facility] V28) (Primary Dx) from Last 3 Months Immunizations Immunization Administration Dates Next Due Influenza Quadravalent, MDCK , 0.5ml, preservative free (Flucelvax) 6mo and older 12/27/2017 Influenza Quadravalent, MDCK , 0.5ml, with preservative (Flucelvax) 6mo and older 02/22/2017 Tdap Tetanus diptheria acell ular pertussis (Boostrix; Adacel) 7yo and older 12/02/2015 Surgical History Surgery Date Site/Laterality Comments OTHER SURGICAL HISTORY PROCEDURE: ---- OTHER ----; COMMENT: Mediastinal malignancy excision OTHER SURGICAL HISTORY PROCEDURE: TN UNLISTED PROCEDURE DIAPHRAGM LIPOMA RESECTION KIDNEY STONE SURGERY Medical History Medical History Date Comments Depression 01/23/2017 DX:Depression History of testicular cancer 01/23/2017 DX: History of testicular cancer Asthma 05/11/2016 DX:Asthma Avascular necrosis of bone o f hip ([facility] [place], [facility] V28) 06/07/2016 DX:Avascular necrosis of bon e of hip ([facility]) 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 Diverticulosis [...] inguinal hernia 09/30/2017 DX:Left ing uinal hernia GERD (gastroesophageal reflux disease) Family History Medical History Relation Name Comments Coronary artery disease Father Relation Name Status Comments Father Alive Mother Alive Social History Tobacco Use Types Packs/Day Years Used Date Smoking Tobacco: Never Smokeless Tobacco: Never Tobacco Cessation:Counseling Given: Not Answered Alcohol Use Standard Drinks/Week Comments No 0 (1 standard drink = 0.6 oz pur e alcohol) Housing Instability Answer Date Recorde d Are you worried that in the next 2 months you may not have stable housing? No 03/09/2025 Food Access & Nutrition Answer Date Rec orded Do you have access to a vari ety of food including fruits and vegetables? Yes 03/09/2025 Health Literacy Answer Date Recorded How often do you need to hav e someone help you when you read instructions, pamphlets, or other written material from your doctor or pharmacy? Never 03/09/2025 Caregiver: How often do you need to have someone help you when you read instructions, pamphlets, or other written material from your doctor or pharmacy? Not on file 03/09/2025 Financial Risk Answer Date Recorded How hard is it for you to pa y for the very basics like food, housing, medical care, and air conditioning / heating? Not very hard 03/09/2025 Transportation Answer Date Recorded Has the lack of transportati on kept you from meetings, work, or from getting things needed for daily living? No Has the lack of transportati on kept you from medical appointments or from getting medications? No 03/09/2025 Social Isolation Answer Date Recorded How often do you feel lonely or isolated from th ose around you? Never 03/09/2025 Food Risk Answer Date Recorded Within the past 12 months we worried whether our food would run out before we got money to buy more. Never true 03/09/2025 Within the past 12 months th e food we bought just didn't last and we didn't have money to get more. Never true 03/09/2025 Dependent Care Answer Date Recorded Do you need help finding or paying for care for your loved ones. For example, child care education coordinator or elderly care for an older adult? No 03/09/2025 Education Answer Date Recorded Do you think completing more education or training, like finishing a GED, going to college, or learning a trade, would be helpful for you? N/A 03/09/2025 Employment and Income Answer Date Recor ded During the last four weeks, have you been actively looking for work? No 03/09/2025 Living Situation Answer Date Recorded What is your living situation? Unrecognized valu e 03/09/2025 Interpersonal Safety Answer Date Record ed Physical Abuse Unrecognized value 02/12/2025 Verbal Abuse Unrecognized value 02/12/2025 Sex and Gender Information Value Date Recorded Sex Assigned at Male 03/25/2024 1:00 PM EST Legal Sex Male 4:55 AM EST Gender Identity Male 03/25/2024 1:00 PM EST Sexual Orientation Straight 03/25/2024 1: 00 PM EST Last Filed Vital Signs Vital Sign Reading Time Taken Comments Blood Pressure 120/79 03/09/2025 1:32 PM EST Pulse 97 03/09/2025 1:32 PM EST Temperature 36.9 C (98.4 F) 03/09/2025 1:32 PM EST Respiratory Rate 20 03/09/2025 1:32 PM EST Oxygen Saturation 99% 03/09/2025 1:32 PM EST Inhaled Oxygen Concentration - - Weight 74.4 kg (164 lb) 03/09/2025 1:32 PM EST Height 160 cm (5' 3 ) 03/09/2025 1:32 PM EST Body Mass Index 29.05 03/09/2025 1:32 PM EST Plan of Treatment Upcoming Encounters Date Type Department Care Team (Late st Contact Info) Description 05/26/2025 11:00 AM EST Ancillary Procedure [facility] [address] [facility] [address] [place] [phone] 08/12/2025 1:00 PM EDT Office Visit Internal Medicine - [place] [address] [facility] [address] [place] [phone] Myrna Clemens MD [address] [place] [phone] 08/31/2025 7:30 AM EDT Office Visit Endocrinology [address] [phone] Payton Win PA [address] [place] [address] Health Maintenance Due Date Last Done Comments Colorectal Cancer Screening: Colonoscopy 1977 Drug Screen 1977 Non-Opioid Controlled Substance Agreement 1977 Diabetes: Annual Foot Exam 1987 Hepatitis B Vaccines (1 of 3 - 19+ 3-dose series) 02/04/1996 Pneumococcal Vaccine: Pediatrics (0 to 5 Years) and At-Risk Patients (6 to 49 Years) (1 of 2 - PCV) 02/04/1996 HIV Screening 02/25/2022 Hepatitis C Screening 02/25/2022 COVID-19 Vaccine ( season) 2024 03/29/2022, 08/03/2020, 07/06/2020 Influenza Vaccine (#1) 2024 12/27/2017, 2016 Diabetes: Annual Retina Eye Exam 02/25/2025 02/26/2024, 04/18/2023 Diabetes: Annual Urine Albumin-Creatinine Ratio (uACR) 05/12/2025 05/12/2024, 05/10/2023 Diabetes: Annual GFR (Glomerular Filtration Rate) 05/12/2025 05/12/2024, 03/25/2024, 11/08/2023, Additional history exists Hypertension/CHF/CAD Annual BMP Blood Test 05/12/2025 05/12/2024, 03/25/2024, 11/08/2023, Additional history exists Diabetes: Blood Sugar Control Test (HGBA1C) 09/07/2025 03/09/2025, 11/10/2024, 05/12/2024, Additional history exists DTaP,Tdap,and Td Vaccines (2 - Td or Tdap) 12/01/2025 12/02/2015 Social Influencers of Health Screening 03/09/2026 03/09/2025 Cholesterol Screening (Lipid Panel) 05/12/2029 05/12/2024, 05/10/2023 RSV Immunization Adult Patients (1 - 1-dose 75+ series) 02/04/2052 Depression Screening Completed 03/09/2025 HIB Vaccines Aged Out No longer eligi [...] Date/Time Associated Diagnosis Comments HEMOGLOBIN A1C Routine 03/09/2025 1:59 PM EST Type 2 diabetes mellitus without complications, unspecified whether jail insulin use ([facility] V24, [facility] V28) Germinoma of mediastinum ([facility] V24, [facility] V28) Hypertriglyceride philomena Primary hypertension POCT GLUCOSE BLOOD Routine 02/12/2025 8:46 AM EST TN CYSTOURETHROSCOPY 02/12/2025 7:45 AM EST Calculus of right kidney Case Notes COIN COLLECTOR TN LITHOTRIPSY EXTRACORPOREAL SHOCK WAVE 02/12/2025 7:45 AM EST Calculus of right kidney Case Notes COIN COLLECTOR POCT GLUCOSE BLOOD Routine 02/12/2025 6:08 AM EST POC GLUCOSE Routine 12/29/2024 2:00 PM EDT Type 2 diabetes mellitus without complications, unspecified whether terminal gauger supervisor insulin use ([facility] V24, [facility] V28) MICROALBUMIN CREATININE URINE RATIO Routine 05/12/2024 2:17 PM EST Type 2 diabetes mellitus without complication, unspecified whether jail insulin use ([facility] V24, [facility] V28) BASIC METABOLIC PANEL Routine 05/12/2024 2:17 PM EST Type 2 diabetes mellitus without complication, unspecified whether terminal gauger supervisor insulin use ([facility] V24, [facility] V28) LIPID PANEL WITH REFLEX TO DIRECT LDL Routine 05/12/2024 2:17 PM EST Type 2 diabetes mellitus without complication, unspecified whether terminal gauger supervisor insulin use ([facility] V24, [facility] V28) DIABETES EYE EXAM Routine 04/18/2023 from Last 3 Months or Most Recently Relevant to Health Maintenance Results * Hemoglobin A1c (03/09/2025 1:59 PM EST) Pathologist [facility] Hemoglobin A1C 5.4 <6.5 % LAB CHEMISTRY METHOD 03/09/2025 10:39 PM EST [facility] Mean Bld Glu Estim. 108 mg/dL LAB CHEMISTRY METHOD 03/09/2025 10:39 PM EST [facility] Blood Venous blood specimen / Unknown Venipuncture / Unknown 03/09/2025 1:59 PM EST 03/09/2025 1:59 PM EST Myrna Clemens MD LAB BLOOD ORDERABLES Final Res ult Performing Organization Address City/[facility]/ZIP Co de Phone Number [facility] [address] [place] [address], [place] [phone] * (ABNORMAL) POCT Glucose, blood (02/12/2025 8:46 AM EST) Only the most recent of2 resultswithin the time period is included. [facility] Glucose POCT 101(H) 70 - 100 mg/dL 02/12/2025 8:47 AM EST [facility] Blood Capillary blood specimen / Unknown 02/12/2025 8:46 AM EST 02/12/2025 8:48 AM EST Pancho Denise MD LAB POINT OF CARE TE ST DOCKED DEVICE UNSOLICITED RESULTS Final Result [facility] [address] [place] [address], [place] [phone] * POC glucose manually resulted (12/29/2024 2:00 PM EDT) [facility] Signature Glucose POC 173 mg/dL Blood Capillary blood specimen / Unknown 12/29/2024 2:00 PM EDT Payton LUCERO POINT OF CARE TEST ENTER/ED IT ORDERABLES Final Result * (ABNORMAL) Lipid panel with reflex to direct LDL (05/12/2024 2:17 PM EST) Cholesterol 209(H) 0 - 200 mg/dL LAB CHEMISTRY METHOD 05/12/2024 5:23 PM EST [facility] Triglycerides 96 0 - 150 mg/dL LAB CHEMISTRY METHOD 05/12/2024 5:23 PM EST [facility] HDL 76 >=40 mg/dL LAB CHEMISTRY METHOD 05/12/2024 5:23 PM EST [facility] LDL Calculated 114(H) 0 - 100 mg/dL LAB CHEMISTRY METHOD 05/12/2024 5:23 PM EST [facility] VLDL Cholesterol Robert 19.2 mg/dL LAB CHEMISTRY METHOD 05/12/2024 5:23 PM EST [facility] Non HDL Chol. (LDL+VLDL) 133 <145 mg/dL LAB CHEMISTRY METHOD 05/12/2024 5:23 PM EST [facility] Chol/HDL Ratio 2.8 0.0 - 4.4 LAB CHEMISTRY METHOD 05/12/2024 5:23 PM EST [facility] Blood Venous blood specimen / Unknown Venipuncture / Unknown 05/12/2024 2:17 PM EST 05/12/2024 2:17 PM EST us Payton LUCERO LAB BLOOD ORDERABLES Final Result [facility] [address] [place] [address], [place] [phone] * Microalbumin creatinine urine ratio (05/12/2024 2:17 [...] Payton LUCERO LAB URINE ORDERABLES Final Result [facility] [address] [place] [address], [place] [phone] * (ABNORMAL) Basic metabolic panel (05/12/2024 2:17 [...] LAB CHEMISTRY METHOD 05/12/2024 5:20 PM EST [facility] eGFR 103 >=60 mL/min/1. 73m2 LAB CHEMISTRY METHOD 05/12/2024 5:20 PM EST [facility] Comment:Calculation based on the Chronic Kidney Disease Epidemiology Collaboration (CKD-EPI) equation refit without adjustment for race. BUN/Creatinine Ratio 12.0 LAB CHEMISTRY METHOD 05/12/2024 5:20 PM EST [facility] Calcium 9.1 8.5 - 10.5 mg/dL LAB CHEMISTRY METHOD 05/12/2024 5:20 PM [facility] Blood Venous blood specimen / Unknown Venipuncture / Unknown 05/12/2024 2:17 PM EST 05/12/2024 2:17 PM EST Payton LUCERO LAB BLOOD ORDERABLES Final Result [facility] [address] [place] [address], * Diabetes Eye Exam (04/18/2023) Pathologist [facility] Diabetes: Annual Retina Eye Exam Abstracted Historical Provider HEALTH MAINTENANCE Final Result from Last 3 Months or Most Recently Relevant to Health Maintenance Insurance [facility] Care Teams Sql Developer Dba Relationship Specialty Start Date End Date Myrna Clemens MD [address] [place] [phone] PCP - General Internal Medicine 06/30/20
--- OUTSIDE RECORDS SUMMARY | 2025-03-15 12:29 | XMS_ITS | Encounter Summary ---
Author Organization [facility] Address [address] [place] [address] Care Team Providers Care Upholsterer [employer] Name Role Phone Myrna Clemens MD Primary Care Provider [phone] Encounter Details Date Type Department Care Team (Late st Contact Info) Description 11/05/2024 Lab Requisition [facility] - Main Lab [address] [facility] [place] [address] Corona Ryan PA [address] [facility] [address] [place] [address] Calculus of kidney Social History [...] Description 05/26/2025 11:00 AM EST Ancillary Procedure [facility] [address] [facility] [address] [place] [address] 08/12/2025 1:00 PM EDT Office Visit Internal Medicine - [place] [address] [facility] [address] [place] [address] Myrna Clemens MD [address] [place] [address] 08/31/2025 7:30 AM EDT Office Visit Endocrinology - [place] [address] [place], [place] [phone] Payton Win PA [address] [place] [address] documented as of this encounter Procedures Procedure Name Priority Date/Time Associated Diagnosis Comments PARATHYROID HORMONE INTACT Routine 11/05/2024 10:18 AM EDT Calculus of kidney documented in this encounter Results * Parathyroid hormone intact (11/05/2024 10:18 AM EDT) PTH 62.9 18.5 - 88.0 pcg/mL LAB CHEMISTRY METHOD 11/05/2024 2:08 PM EDT [facility] Blood Venous blood specimen / Unknown 11/05/2024 10:18 AM EDT 11/05/2024 12:29 PM EDT us Corona LUCERO LAB BLOOD ORDERABLES Final Result [facility] [address] [place] [address], [place] [phone] documented in this encounter Visit Diagnoses Diagnosis Calculus of kidney documented in this encounter Care Teams Upholsterer [employer] Relationship Specialty Start Date End Date Myrna Clemens MD [address] [phone] PCP - General Internal Medicine 06/30/20 documented as of this encounter
[2025-03-15 13:53] LABS: MANUAL DIFF FLAG NO
[2025-03-15 14:16] LABS: Hematocrit 41.1 % (42.0-52.0); Hemoglobin 13.0 g/dl (14.0-18.0); Imm Gran Abs Auto 0.03 X10*3/uL (0.00-0.03); Imm Gran Pct Auto 0.5 % (0.0-0.4); Lymphocytes Absolute Auto 2.3 X10*3/uL (1.2-4.9); Mean Corpuscular HGB Conc 31.6 g/dl (31.0-36.0); Mean Corpuscular Hemoglobin 28.1 pg (27.0-33.0); Mean Corpuscular Volume 89.0 fL (80.0-98.0); NRBC Abs Auto 0.000 X10*3/uL (0.0-0.012); NRBC Pct Auto 0.0 /100WBC (0.0-0.2); Platelet Count 219 X10*3/uL (160-400); Red Blood Count 4.62 X10*6/uL (4.60-5.80); White Blood Count 6.2 X10*3/uL (4.8-10.8)
[2025-03-15 14:43] LABS: Alanine Aminotransferase 32 U/L (0-40); Aspartate Amino Transferase 39 U/L (5-37); Estimated Glomerular Filt Rate > 60
[2025-03-15 14:46] LABS: Protein/Creatinine Ratio, Ur 0.14 (<0.2); Total Protein Urine Random 14 mg/dL (<12)
== END 2025-03-15 10:17 | disposition home or self-care (01) ==
LOC: HO.HKASLDS 10:16
PROVIDERS: PCP Internal Medicine; Visit Provider Internal Medicine Rheumatology
DX: R76.0 Raised antibody titer (principal)
CPT/HCPCS: 36415; 82565; 82570; 84156; 84450; 84460; 85025; 85652; 86140; 86160; 86225; 86235; 86255